=== PATIENT | male | born 1930 | race Caucasian/White ===

== ENCOUNTER → 2017-03-19 | Outpatient (CLI) | payer OTHER ==
[~2017-03-19] MED LIST: ACET-1256 PO; ACET325C PO; CEPH500C PO; CLX/20 PO; DABI1CAP PO; DFL150 PO; DLN/100 PO; FURO20TA PO; LEVO125T5 PO; LISI-729 PO; LSX40 PO; METO25TA3 PO; PRED10TA PO; SULF800T23 PO
--- NOTE | 2017-03-19 11:51 | DIAGNOSTIC IMAGING REPORT ---
LUMBAR SPINE CT CT DOSE: 635.67 mGy.cm HISTORY: Pain LUMBAR PAIN TECHNIQUE: Multiaxial CT images of the lumbar spine were performed and reformatted in the sagittal and coronal plane without the use of contrast. COMPARISON: 01/18/2011 FINDINGS: All findings including scoliosis and degenerative disc changes appear somewhat progressive compared to the prior exam. No evidence for compression deformity. Findings of moderate to moderately significant spinal stenosis on a multifactorial basis at L2-L3 and L3-L4. Potential developing mild multifactorial spinal stenosis L4-L5. Moderate narrowing of the neuroforamina bilaterally at virtually all levels. IMPRESSION: 1. Progressive degenerative disc change and scoliosis compared to the prior study of 01/18/2011. 2. Moderate multifactorial spinal stenosis at several levels again subtly progressive compared to the prior study. 3. No evidence for a compression deformity. 4. Moderate narrowing of the neuroforamina bilaterally at virtually all levels of the lumbar region. This is also somewhat progressive from the prior exam. Electronically signed by: Angel Park M.D. 03/19/2017 11:49 AM Dictated Date/Time: 03/19/2017 11:44 AM
== END | disposition home or self-care (01) ==
LOC: C.CTS 11:30
PROVIDERS: ATTEND Physical Medicine & Rehabilitation
DX: M54.16 Radiculopathy, lumbar region (principal)

== ENCOUNTER → 2017-05-25 | Outpatient (CLI) | payer OTHER ==
[~2017-05-25] MED LIST changes: -ACET325C PO; +LEVO125T4 PO; -LEVO125T5 PO; -LSX40 PO; -METO25TA3 PO
--- NOTE | 2017-05-25 16:26 | DIAGNOSTIC IMAGING REPORT ---
CHEST 2 VIEWS ROUTINE CLINICAL HISTORY: 86 years-old Male presenting with pulmonary fibrosis. TECHNIQUE: PA and lateral views of the chest were obtained. COMPARISON: 10/29/2016. FINDINGS: Left-sided pacer with lead to the right ventricular apex. Few metallic foreign bodies project over the right hemithorax, unchanged and possibly ballistic. Atherosclerosis of aortic arch. Persistent mild prominence of the cardiac silhouette. Diffuse reticular lung opacities with a mid to basilar predominance are essentially stable from prior. No convincing evidence of a new focal infiltrate. Persistent right lateral pleural thickening. No large effusion. No pneumothorax. Osseous structures and upper abdomen normal. IMPRESSION: 1. Chronic pulmonary fibrosis. No superimposed infiltrate to suggest pneumonia. Electronically signed by: Maurisio Grubbs M.D. 05/25/2017 4:24 PM Dictated Date/Time: 05/25/2017 4:22 PM
== END | disposition home or self-care (01) ==
LOC: C.RAD1850 16:12
PROVIDERS: ATTEND Internal Medicine
DX: J84.10 Pulmonary fibrosis, unspecified (principal)

== ENCOUNTER 2017-07-12 10:08 | Emergency (ER) | payer OTHER ==
[~2017-07-12] VITALS: Ht 165.1 cm; Wt 83.9 kg
[~2017-07-12 10:08] MED LIST changes: -CEPH500C PO; -SULF800T23 PO
[2017-07-12 10:13] VITALS: TEMP 36.7; Ht 165.1 cm; Wt 83.9 kg
[2017-07-12] MEDS ORDERED: XYLOCAINE 1%/SOD BICARB 20 ML VIAL INFIL ONE (11:24)
--- NOTE | 2017-07-12 11:29 | EMERGENCY ROOM VISIT NOTE ---
History Report prepared by Candi: Sherrie Chi Under the Supervision of: Dr. Sara Ramey M.D. First contact with patient: 10:36 Chief Complaint: LACERATION/CUT (SUT/DERMABOND) Stated Complaint: FELL AND CUT ARM Nursing Triage Summary: fell this am at 0915 lac to left lower arm x 2 with skin tear. also felllast week hurt right elbow swollen and red. 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 He fell outside and landed on rocks and cement. He has multiple lacerations to the left forearm. Family states that he has been falling often. He fell last week and injured his right elbow. Since that time he has been soaking the elbow in Epsom salt, but it has become swollen, warm, and sore. Movement exacerbates his pain. He rates his pain as a 6/10 in severity. He did not hit his head when he fell today, but family states that he hit his head with his previous fall. The patient states that his tetanus is up to date. He takes prednisone for pulmonary fibrosis. He is on Pradaxa for a-fib. 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 Pt has swelling to right elbow Review of Systems See HPI for pertinent positives & negatives. A total of 10 systems reviewed and were otherwise negative. 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 (17) Pulmonary fibrosis (18) PURE HYPERCHOLESTEROLEM (19) Renal cyst, right (20) Weakness Family History Heart disease Social History Smoking Status: Never Smoker Smokeless Tobacco Use: No Alcohol Use: none Drug Use: none Marital Status: Housing Status: lives with significant other Occupation Status: retired Current/Historical Medications Scheduled Cephalexin Monohydrate (Keflex), 500 MG PO TID Citalopram (Citalopram Hydrobromide), 20 MG PO QAM Dabigatran Etexilate Mesylate (Pradaxa), 75 MG PO BID Fluconazole (Fluconazole), 150 MG PO WK Furosemide (Lasix), 20 MG PO QAM Levothyroxine Sodium (Levothyroxine Sodium), 125 MCG PO QAM Lisinopril (Zestril), 5 MG PO QAM Phenytoin Sodium (Dilantin), 100 MG PO QID Prednisone Tab (Prednisone), 20 MG PO QAM Sulfa/Trimethoprim (Bactrim Ds 800MG/160MG), 1 TAB PO BID Scheduled PRN Acetaminophen (Tylenol), 1,000 MG PO Q6H PRN for Pain Allergies Coded Allergies: No Known Allergies (Unverified , 07/12/17) Physical Exam Vital Signs Date Time Temp Pulse Resp B/P (MAP) Pulse Ox O2 Delivery O2 Flow Rate FiO2 07/12/17 12:59 80 20 142/77 96 Room Air 07/12/17 12:43 71 144/82 93 Room Air 07/12/17 10:13 36.7 67 18 136/65 96 Room Air Physical Exam Vital signs reviewed. General: Well-appearing elderly male, in no significant distress. HEENT: No scleral icterus, PERRLA, neck supple. Atraumatic. Cardiovascular: Regular rate and rhythm, no extra sounds. Pulmonary: Coarse breath sounds bilaterally, normal work of breathing. Abdomen: Soft, nontender, nondistended, positive bowel sounds. Musculoskeletal: Right elbow bursa is erythematous, warm, and fluctuant. Small abrasion over the elbow that appears to be well-healing. Left forearm with a large 10 cm U-shaped skin tear/laceration. 2 cm superficial skin tear more distally Neurologic: Patient awake alert and oriented x 3, full strength in all 4 extremities. Cranial nerves 2 through 12 grossly intact. Skin: Warm, dry, no rash Medical Decision & Procedures ER Provider Diagnostic Interpretation: Radiology results as stated below per my review and radiologist interpretation: RIGHT ELBOW MIN 3 VIEWS ROUTINE CLINICAL HISTORY: Right elbow bursitis. Trauma. Pain. COMPARISON: None. DISCUSSION: No acute fractures are visualized. The fat pads are not displaced. There is a small olecranon spur and tiny radial head spur. There is posterior soft tissue swelling. IMPRESSION: Mild degenerative change. Posterior edema. No acute fractures. Electronically signed by: Paco Chatman M.D. 07/12/2017 11:27 AM Dictated Date/Time: 07/12/2017 11:26 AM HEAD WITHOUT CONTRAST (CT) CT DOSE: 537.48 mGy.cm HISTORY: Mental status change frequent falls, ICH, anticoagulation TECHNIQUE: Multiaxial CT images of the head were performed without the use of intravenous contrast. A dose lowering technique was utilized adhering to the principles of ALARA. Comparison: 06/22/2016 Findings: The paranasal sinuses and mastoid air cells are clear. Atrophy with chronic prominence of these subarachnoid space bilaterally. Mild age-related chronic small vessel change. No acute intracranial hemorrhage. No midline shift. Impression: Chronic change. No acute process. The above report was generated using voice recognition software. It may contain grammatical, syntax or spelling errors. Electronically signed by: Angel Park M.D. 07/12/2017 12:56 PM Dictated Date/Time: 07/12/2017 12:53 PM Laboratory Results Test 07/12/17 12:21 Synovial Fluid Source ELBOW Synovial Fluid Color ELIZA Synovial Fluid Appearance HAZY Synovial Fluid WBC 2626 /uL (0-200) Synovial Fluid RBC 95569 /uL Synovial Fluid Polynuclear WBCs % 91.1 % Synovial Fluid Mononuclear WBCs % 8.9 % Laboratory results per my review. Medications Administered Medications (Trade) Dose Ordered Sig/Chel Route Start Time Stop Time Status Last Admin Dose Admin Ceftriaxone Sodium (Rocephin Im) 1,000 mg NOW ONCE IM 07/12/17 12:30 07/12/17 12:31 DC 07/12/17 12:37 1,000 MG Trimethoprim/ Sulfamethoxazole (Septra Ds 800/ 160MG Tab) 1 tab NOW STAT PO 07/12/17 12:22 07/12/17 12:24 DC 07/12/17 12:36 1 TAB Procedure Laceration repair Location: left forearm Total length: 10 cm Complexity: simple Verbal consent was obtained after the risks and benefits were explained, including but not limited to bleeding, scarring, infection, pain, and bone/joint /nerve damage. At this time, the risks of the procedure are less than the risks of NOT performing the procedure. A time out was taken and the correct patient and site identified. The skin was prepped with betadine. The target area was anesthetized with 2 ml of 1% lidocaine without epinephrine. Copious irrigation was performed using NSS. The skin was re-prepped with betadine and a sterile field set. The wound was explored for foreign bodies and none found. Examination revealed no injury to deep structures such as tendons, bone, or significant blood vessels. Debridement was not performed. The wound edges were approximated using 5 deep absorbables 5-0 simple interrupted Vicryl sutures and Dermabond and steri strips applied. Hemostasis and excellent approximation was achieved. Antibacterial ointment and a sterile dressing applied. Detailed wound care instructions and signs and symptoms of infection reviewed with the patient. No complications and the patient tolerated the procedure well. Joint Aspiration Indication: Bursitis with overlying cellulitis Location: right elbow Verbal consent was obtained after the risks and benefits were explained, including but not limited to bleeding, scarring, infection, pain, and bone/joint /nerve damage. At this time, the risks of the procedure are less than the risks of NOT performing the procedure. A time out was taken and the correct patient and site identified. The skin was prepped with betadine and a sterile field set. The are was anesthetized with 1 ml of 1% lidocaine without epinephrine. The joint was aspirated with an 18-gauge needle. Approximately 4 ml of a straw- colored fluid was obtained. A sterile dressing applied. The area of cellulitis was circled. No complications and the patient tolerated the procedure well. ED Course 1036: Past medical records reviewed. The patient was evaluated in room A2. A complete history and physical examination was performed. 1124: Lidocaine HCl Inj 1141: At this time I performed a laceration repair and joint aspiration. Please see the procedure note for further details. 1222: Trimethoprim/Sulfamethoxazole 1 tab PO 1230: Rocephin 1000 mg IM 1315: I reassessed the patient at this time. He is feeling better and resting comfortably. I discussed the results and treatment plan with the patient and his family. I answered all pertaining questions that they had. They expressed understanding and verbalized agreement. The patient will be discharged home. Medical Decision Differential diagnosis: Intracranial injury, cervical spine injury, intrathoracic injury, intra- abdominal injury, musculoskeletal injury, wound infection, bursitis. This patient was evaluated and appeared to be in no significant distress. Evaluation of the right elbow appears to have a bursitis with overlying cellulitis. The elbow was and fluid was sent to the lab. The left forearm was approximated with a combination of sutures, Dermabond and Steri -Strips, please see my note above. Patient states his tetanus status is up-to- date. He was given IM ceftriaxone and a Bactrim tablet. He was discharged to 7 days of Keflex and Bactrim. Wound care instructions were given to the patient and his and daughter. Head CT was obtained due to the patient's frequent falls and anticoagulation. This study is negative. They'll follow-up with his physician this week and return to the ER for worsening of symptoms or any medical concerns. Medication Reconcilliation Current Medication List: was personally reviewed by me Blood Pressure Screening Patient's blood pressure: Elevated blood pressure Blood pressure disposition: Elevated BP felt to be situational Impression Primary Impression: Laceration of forearm, left Additional Impression: Other infective bursitis, right elbow Scribe Attestation The scribe's documentation has been prepared under my direction and personally reviewed by me in its entirety. I confirm that the note above accurately reflects all work, treatment, procedures, and medical decision making performed by me. Departure Information Dispostion Home / Self-Care Prescriptions Cephalexin Monohydrate (Keflex) 500 Mg Cap 500 MG PO TID for 6 Days, #18 CAP Prov: Sara Ramey M.D. 07/12/17 Sulfa/Trimethoprim (Bactrim Ds 800MG/160MG) Tab 1 TAB PO BID, #13 TAB Prov: Sara Ramey M.D. 07/12/17 Referrals Camden Dennis D.O. (PCP) Forms HOME CARE DOCUMENTATION FORM, IMPORTANT VISIT INFORMATION Patient Instructions [facility] Additional Instructions Diagnosis: Lacerations 2 to the left forearm, right olecranon bursitis. No water on the area for 8 hrs then no soaking until the glue falls off. Wash once daily with mild soap and warm water, do not scrub. Blot dry and apply a dry dressing. The glue will fall off on its own - do not pick at it. Once the glue falls off use antibiotic ointment on the area until fully healed. Ice and elevate for swelling and pain. Tylenol 650 mg every 6 hrs for pain (Maximum 3000 mg Tylenol in 24 hr period). Return for any signs of infection ( increasing redness, swelling, drainage, fever). Keep covered when in sun until fully healed then SPF 50 or higher for one year. Vitamin E oil if desired two weeks after fully healed for reduction of scar. Your tetanus status is up-to-date. Bactrim DS 1 tablet twice daily for 7 days. Take your pill starting tonight. Keflex 500 mg 3 times daily for 6 days, start tomorrow. Watch for signs of worsening infection. Follow-up with your physician this week for reevaluation. Return to the ER for worsening of symptoms or any medical concerns. Problem Qualifiers Primary Impression: Laceration of forearm, left Encounter type: initial encounter Qualified Codes: S51.812A - Laceration without foreign body of left forearm, initial encounter
[2017-07-12] MEDS ORDERED: SULFAMETHOXAZOLE/TRIMETHOPRIM DS 800/160MG TAB PO STA (12:22)
[2017-07-12] MEDS ORDERED: CEFTRIAXONE SOD 350MG/ML 1 GM VIAL IM ONE (12:30)
[2017-07-12] MEDS ORDERED: CEPH500C PO (12:33)
[2017-07-12] MEDS ORDERED: SULF800T23 PO (12:33)
--- NOTE | 2017-07-12 12:57 | DIAGNOSTIC IMAGING REPORT ---
HEAD WITHOUT CONTRAST (CT) CT DOSE: 537.48 mGy.cm HISTORY: Mental status change frequent falls, ICH, anticoagulation TECHNIQUE: Multiaxial CT images of the head were performed without the use of intravenous contrast. A dose lowering technique was utilized adhering to the principles of ALARA. Comparison: 06/22/2016 Findings: The paranasal sinuses and mastoid air cells are clear. Atrophy with chronic prominence of these subarachnoid space bilaterally. Mild age-related chronic small vessel change. No acute intracranial hemorrhage. No midline shift. Impression: Chronic change. No acute process. The above report was generated using voice recognition software. It may contain grammatical, syntax or spelling errors. Electronically signed by: Angel Park M.D. 07/12/2017 12:56 PM Dictated Date/Time: 07/12/2017 12:53 PM
[2017-07-12 12:59] VITALS: BP 142/77; PULSE 80; O2SAT 96
[2017-07-12 13:02] LABS: SYNOVIAL FLUID APPEARANCE HAZY; SYNOVIAL FLUID COLOR AMBER; SYNOVIAL FLUID MONONUC RELAT 8.9 %; SYNOVIAL FLUID POLYNUC RELAT 91.1 %
--- NOTE | 2017-07-16 10:54 | Pharmacy Progress Note ---
ED Pharmacist Culture FollowUp Date of Service: Jul 16, 2017. Patient presented after fall and injury to right elbow and was sent home with a prescription for Bactrim DS 1 tab BID and Keflex 500mg TID X 6 days, which should cover the MSSA growing from the patient's synovial culture.
== END 2017-07-12 13:21 | disposition home or self-care (01) ==
LOC: C.EDB 10:15 → C.EDA 13:21
DX: S51.812A Laceration without foreign body of left forearm, initial encounter (principal); W18.30XA Fall on same level, unspecified, initial encounter; M71.121 Other infective bursitis, right elbow; S50.311A Abrasion of right elbow, initial encounter; R29.6 Repeated falls; J84.10 Pulmonary fibrosis, unspecified; I48.91 Unspecified atrial fibrillation; M54.16 Radiculopathy, lumbar region; R00.1 Bradycardia, unspecified; I25.10 Atherosclerotic heart disease of native coronary artery without angina pectoris; N18.9 Chronic kidney disease, unspecified; I12.9 Hypertensive chronic kidney disease with stage 1 through stage 4 chronic kidney disease, or unspecified chronic kidney disease; J44.9 Chronic obstructive pulmonary disease, unspecified; F32.9 Major depressive disorder, single episode, unspecified; E03.9 Hypothyroidism, unspecified; E78.00 Pure hypercholesterolemia, unspecified; N28.1 Cyst of kidney, acquired; Z79.01 Long term (current) use of anticoagulants

== ENCOUNTER → 2017-09-16 | Outpatient (CLI) | payer OTHER ==
[~2017-09-16] MED LIST changes: -LEVO125T4 PO; +LEVO125T5 PO
--- NOTE | 2017-09-16 16:34 | DIAGNOSTIC IMAGING REPORT ---
CHEST 2 VIEWS ROUTINE HISTORY: COUGH, PULMONARY FIBROSIS COMPARISON: Chest 05/25/2017. FINDINGS: Left-sided single lead pacemaker. No pneumothorax. The heart is borderline enlarged. No pleural effusions. Diffuse interstitial thickening most pronounced at the lung bases. This remains unchanged. No new focal lung consolidation. A few metallic pellets seen within the right upper chest are again noted. IMPRESSION: Chronic interstitial thickening consistent with the patient's history of pulmonary fibrosis. No acute process within the chest. Electronically signed by: Judah Gary M.D. 09/16/2017 4:32 PM Dictated Date/Time: 09/16/2017 4:31 PM
== END | disposition home or self-care (01) ==
LOC: C.RAD1850 15:23
PROVIDERS: ATTEND Family Medicine Hospice and Palliative Medicine
DX: J84.10 Pulmonary fibrosis, unspecified (principal); R05 Cough

== ENCOUNTER 2017-09-29 09:59 | Emergency (ER) | payer OTHER ==
[~2017-09-29] VITALS: Ht 165.1 cm; Wt 85.0 kg
[2017-09-29 10:01] VITALS: TEMP 37.3; Ht 165.1 cm; Wt 85.0 kg
--- NOTE | 2017-09-29 11:14 | DIAGNOSTIC IMAGING REPORT ---
CHEST ONE VIEW PORTABLE HISTORY: Cough. Pulmonary fibrosis. COMPARISON: Chest 09/16/2017. FINDINGS: No pneumothorax. No pleural effusions. There are low lung volumes with diffuse interstitial thickening demonstrating a peripheral and basilar predominance. There is also basilar honeycombing consistent with fibrosis. This remains unchanged. No new focal lung consolidations. No evidence for pulmonary edema. The heart remains mildly enlarged. Left-sided single lead pacemaker. A few metallic BBs within the right shoulder. IMPRESSION: Chronic interstitial thickening consistent with the patient's history of fibrosis. This remains unchanged. No acute process within the chest. Electronically signed by: Judah Gary M.D. 09/29/2017 11:13 AM Dictated Date/Time: 09/29/2017 11:11 AM
--- NOTE | 2017-09-29 11:16 | DIAGNOSTIC IMAGING REPORT ---
PELVIS 1 OR 2 VIEW ROUTINE CLINICAL HISTORY: Fall. Pelvic pain. COMPARISON STUDY: None. FINDINGS: No fracture or dislocation within the pelvis or hips. Mild osteoarthritis within the bilateral hips. Surgical clips within the pelvis. The sacrum appears intact. IMPRESSION: No fracture or dislocation within the pelvis or hips. Electronically signed by: Judah Gary M.D. 09/29/2017 11:15 AM Dictated Date/Time: 09/29/2017 11:13 AM
[2017-09-29 11:25] LABS: BASO % 0.2 %; BASO ABS # 0.02 K/uL (0-0.2); EOS % 1.3 %; HEMATOCRIT 37.3 % (42-52); IG% 0.4 %; LYMPH % 24.7 %; MEAN CELL VOLUME 110.4 fL (80-100); MEAN CORPUSCULAR HEMOGLOBIN 36.7 pg (25-34); MEAN CORPUSCULAR HGB CONC 33.2 g/dl (32-36); MEAN PLATELET VOLUME 9.2 fL (7.4-10.4); MONO % 11.5 %; NEUT % 61.9 %; PLATELET COUNT 175 K/uL (130-400); RED BLOOD COUNT 3.38 M/uL (4.7-6.1); WHITE BLOOD COUNT 8.49 K/uL (4.8-10.8)
--- NOTE | 2017-09-29 11:26 | DIAGNOSTIC IMAGING REPORT ---
CT SCAN OF THE BRAIN WITHOUT IV CONTRAST CLINICAL HISTORY: Fall several days ago. Headache. COMPARISON STUDY: CT of the brain dated 07/12/2017. TECHNIQUE: Unenhanced axial CT scan of the brain is performed from the vertex to the skull base. FINDINGS: Brain parenchyma: There is an acute appearing subdural hematoma identified along the left temporal convexity. This is best seen on axial image #10 and measures up to 14 mm thickness. This effaces the subjacent cortical sulci. No midline shift is seen. Trace subdural blood is also identified along the tentorium cerebelli. There is trace subarachnoid hemorrhage identified along the right posterior parietal cortical sulci, best seen on axial image #18. There are age-related involutional changes noting mild patchy subcortical and periventricular microangiopathic change. There is no evidence of acute territorial ischemia by CT criteria. Law-white matter is preserved. Ventricles, sulci, cisterns: Prominent secondary to involutional change. Intracranial vasculature: There is atherosclerotic calcification of the cavernous carotid and vertebral arteries. Calvarium: The skeletal structures are osteopenic. No depressed calvarial fracture is seen. A small sebaceous cyst is present within the suboccipital soft tissues. Sinuses and mastoids: There is evidence of previous paranasal sinus surgery. Mild mucosal thickening is seen within the maxillary antra. The remaining visualized paranasal sinuses are clear. There is a left mastoid effusion. The right mastoid air cells are well pneumatized. Cerumen is seen within the left external auditory canal. Orbits: The bony orbits are grossly intact. Bilateral ocular lens implants are noted. IMPRESSION: 1. There is an acute subdural hematoma identified along the left convexity. This causes mild mass effect with effacement of the subjacent cortical sulci. No midline shift is seen. 2. Trace subdural blood is also seen along the tentorium cerebelli. 3. There is a small volume of subarachnoid hemorrhage identified along the right posterior parietal cortical sulci. 4. There is no evidence of acute territorial ischemia by CT criteria. 5. No depressed calvarial fracture is seen. Electronically signed by: Rolando Causey M.D. 09/29/2017 11:25 AM Dictated Date/Time: 09/29/2017 11:20 AM
[2017-09-29 11:45] LABS: BLOOD UREA NITROGEN 14 mg/dl (7-18); BUN/CREATININE RATIO 11.6 (10-20); CALCIUM 8.5 mg/dl (8.5-10.1); CARBON DIOXIDE 31 mmol/L (21-32); CHLORIDE 103 mmol/L (98-107); CREATININE 1.23 mg/dl (0.60-1.40); GLUCOSE 141 mg/dl (70-99); SODIUM 139 mmol/L (136-145)
[2017-09-29 11:46] LABS: COMPLETE YES; STOMATOCYTE 1+
--- NOTE | 2017-09-29 11:47 | DIAGNOSTIC IMAGING REPORT ---
LUMBAR SPINE CT CT DOSE: HISTORY: Low back pain. Fall. TECHNIQUE: Multiaxial CT images of the lumbar spine were performed and reformatted in the sagittal and coronal plane without the use of contrast. A dose lowering technique was utilized adhering to the principles of ALARA. COMPARISON: Lumbar spine CT 03/19/2017. FINDINGS: No acute fractures or subluxation within the lumbar spine. Focal indentation along the inferior endplate of L4 remains unchanged. This could be due to a Schmorl's node or old compression deformity. Moderate disc space narrowing at L2-L3 and mild disc space narrowing at L5-S1. Paraspinal soft tissues are unremarkable. The visualized sacrum is intact. Mild levoscoliosis. Moderate central canal narrowing at L3-L4 and mild central canal narrowing at L2-L3 and L4-L5, unchanged. IMPRESSION: 1. No significant change compared to the prior study. 2. No acute fractures or subluxation within the lumbar spine. 3. Degenerative changes as described above. 4. Focal central depression within the inferior endplate of L4 remains unchanged and may be due to a Schmorl's node or old compression deformity. Electronically signed by: Judah Gary M.D. 09/29/2017 11:46 AM Dictated Date/Time: 09/29/2017 11:35 AM
--- NOTE | 2017-09-29 11:49 | DIAGNOSTIC IMAGING REPORT ---
CT SCAN OF THE CERVICAL SPINE CLINICAL HISTORY: Fall several days ago. COMPARISON STUDY: CT scan of cervical spine dated 06/22/2016. TECHNIQUE: CT scan of the cervical spine is performed from the skull base to the upper thoracic spine. Images are reviewed in the axial, sagittal, and coronal planes. IV contrast was not administered for this examination. A dose lowering technique was utilized adhering to the principles of ALARA. CT DOSE: 2056.19 mGy.cm FINDINGS: Skeletal structures: The skeletal structures are osteopenic. There is no evidence of fracture or subluxation involving the cervical spine. Vertebral body height and alignment are maintained. The odontoid process and lateral masses are intact. The atlantoaxial articulation is preserved noting advanced productive degenerative change. Small anterior osteophytes are seen throughout. The spinous processes appear intact. There is moderate to advanced multilevel cervical spondylosis. Uncovertebral and facet arthropathy contribute to neural foraminal stenosis at most levels. There is partial bony fusion of the posterior elements at C4-C5. Intervertebral discs: There is advanced disc space narrowing seen at C2-C3 and C6-C7. Mild to moderate disc space narrowing is seen at the remaining cervical levels. Central canal: Posterior disc osteophyte complexes at C3-C4, C4-C5, and C6-C7 may contribute to multilevel acquired compromise of the central canal. Soft tissues: The prevertebral and paraspinous soft tissues are within normal limits. There is atherosclerotic calcification of the carotid bulbs. A subcentimeter low-attenuation nodule is suggested in the right thyroid lobe. A sebaceous cyst is present in the suboccipital soft tissues. Calvarium: The visualized calvarium at the skull base appears intact. Brain parenchyma: Partially visualized brain parenchyma the skull base is within normal limits. Sinuses and mastoids: The visualized paranasal sinuses are clear. There are bilateral mastoid effusions, left larger than right. Lung apices: Clear as visualized. IMPRESSION: 1. There is no evidence of fracture or subluxation involving the cervical spine. 2. Osteopenia and spondylotic change as above. Electronically signed by: Rolando Causey M.D. 09/29/2017 11:48 AM Dictated Date/Time: 09/29/2017 11:43 AM
[2017-09-29 12:13] LABS: PARTIAL THROMBOPLASTIN RATIO 1.2; PROTHROMBIN TIME (PATIENT) 11.1 SECONDS (9.0-12.0)
[2017-09-29] MEDS ORDERED: IDARUCIZUMAB IV ONE (12:30)
[2017-09-29] MEDS ORDERED: SODIUM CHLOR 0.9% 10ML FLUSH 20 ML in SYRINGE 0 ML IV ONE (12:30)
[2017-09-29 12:51] VITALS: BP 165/90; PULSE 77; O2SAT 97
--- NOTE | 2017-09-29 17:21 | EMERGENCY ROOM VISIT NOTE ---
History Report prepared by Candi: Sherrie Chi Under the Supervision of: Dr. Abimael Ashley M.D. First contact with patient: 10:16 Chief Complaint: RESPIRATORY PROBLEMS Stated Complaint: HEADACHE, TROUBLE BREATHING Nursing Triage Summary: pt reports he fell on wednesday has back pain and head pain. no loc when he coughs hurts around neck . has alot of coughing nonproductive. needs oxygen level checked per daughter History of Present Illness The patient is a 86 year old male who presents to the Emergency Room with complaints of constant lower back pain secondary to a fall occurring 2 days ago. The patient was bending over to refill the bird feeder and stood up quickly. This caused him to fall backwards and land on his buttocks and lower back. He has been having pain in his buttocks and lower back since this episode. The patient hit his head and notes a "lump" on the back of his head. He did not lose consciousness. He is complaining of head pain and neck pain secondary to his fall. The patient denies fevers, upper back pain, chest pain, nausea, vomiting, abdominal pain, hip pain, and any pain or injury to his extremities. He is on chronic NC/O2 for pulmonary fibrosis. The patient states that he is not more short of breath than usual. He denies any new or worsening respiratory symptoms. The patient takes Pradaxa for A-fib. Source of History: patient, spouse/significant other Onset: 2 days ago Position: back (lower) Timing: constant Modifying Factors (Worsening): other (recent fall ) Associated Symptoms: + headache, + neck pain, No LOC, No fevers, No chest pain, No SOB, No nausea, No vomiting, No abdominal pain Note: Pt notes pain in buttocks. Pt denies hip pain and pain or injury to extremities. Review of Systems See HPI for pertinent positives & negatives. A total of 10 systems reviewed and were otherwise negative. 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 (17) Pulmonary fibrosis (18) PURE HYPERCHOLESTEROLEM (19) Renal cyst, right (20) Weakness Family History Heart disease Social History Smoking Status: Former Smoker Alcohol Use: none Drug Use: none Marital Status: Housing Status: lives with significant other Occupation Status: retired Current/Historical Medications Scheduled Citalopram (Citalopram Hydrobromide), 20 MG PO QAM Dabigatran Etexilate Mesylate (Pradaxa), 75 MG PO BID Fluconazole (Fluconazole), 150 MG PO WK Furosemide (Lasix), 20 MG PO QAM Levothyroxine Sodium (Levothyroxine Sodium), 125 MCG PO QAM Phenytoin Sodium (Dilantin), 100 MG PO TID Prednisone Tab (Prednisone), 20 MG PO QAM Scheduled PRN Acetaminophen (Tylenol), 1,000 MG PO Q6H PRN for Pain Allergies Coded Allergies: No Known Allergies (Unverified , 07/12/17) Physical Exam Vital Signs Date Time Temp Pulse Resp B/P (MAP) Pulse Ox O2 Delivery O2 Flow Rate FiO2 09/29/17 12:51 77 18 165/90 97 09/29/17 12:24 74 18 164/75 99 Nasal Cannula 3.0 09/29/17 11:21 74 16 144/84 96 Nasal Cannula 3.0 09/29/17 10:28 79 09/29/17 10:01 37.3 78 26 161/74 96 Room Air Physical Exam Constitutional: Vital signs reviewed. Eyes: Pupils are equal round reactive to light. Conjunctiva are noninjected. ENT: Pharynx is clear without erythema or exudate. Mucous membranes are moist. Neck supple without meningeal signs. Respiratory: Rhonchi bilaterally. Breath sounds are equal bilaterally. Cardiovascular: Regular rate and rhythm. No rubs or gallops. GI: Soft, nondistended and nontender. Bowel sounds are present. Musculoskeletal: No peripheral edema. No midline tenderness to cervical, thoracic, and lumbosacral spine. No hip tenderness, no pelvic instability. Integumentary: No cyanosis. Neurological: The patient is awake and alert. Cranial nerves II-XII are intact. Motor is 5 out of 5 all extremities. Sensation is intact to light touch all extremities. Normal speech. No pronator drift. Psychiatric: Normal affect. Medical Decision & Procedures ER Provider Diagnostic Interpretation: Radiology results as stated below per my review and the radiologist's interpretation: LUMBAR SPINE CT CT DOSE: HISTORY: Low back pain. Fall. TECHNIQUE: Multiaxial CT images of the lumbar spine were performed and reformatted in the sagittal and coronal plane without the use of contrast. A dose lowering technique was utilized adhering to the principles of ALARA. COMPARISON: Lumbar spine CT 03/19/2017. FINDINGS: No acute fractures or subluxation within the lumbar spine. Focal indentation along the inferior endplate of L4 remains unchanged. This could be due to a Schmorl's node or old compression deformity. Moderate disc space narrowing at L2-L3 and mild disc space narrowing at L5-S1. Paraspinal soft tissues are unremarkable. The visualized sacrum is intact. Mild levoscoliosis. Moderate central canal narrowing at L3-L4 and mild central canal narrowing at L2-L3 and L4-L5, unchanged. IMPRESSION: 1. No significant change compared to the prior study. 2. No acute fractures or subluxation within the lumbar spine. 3. Degenerative changes as described above. 4. Focal central depression within the inferior endplate of L4 remains unchanged and may be due to a Schmorl's node or old compression deformity. Electronically signed by: Judah Gary M.D. 09/29/2017 11:46 AM Dictated Date/Time: 09/29/2017 11:[address] SCAN OF THE BRAIN WITHOUT IV CONTRAST CLINICAL HISTORY: Fall several days ago. Headache. COMPARISON STUDY: CT of the brain dated 07/12/2017. TECHNIQUE: Unenhanced axial CT scan of the brain is performed from the vertex to the skull base. FINDINGS: Brain parenchyma: There is an acute appearing subdural hematoma identified along the left temporal convexity. This is best seen on axial image #10 and measures up to 14 mm thickness. This effaces the subjacent cortical sulci. No midline shift is seen. Trace subdural blood is also identified along the tentorium cerebelli. There is trace subarachnoid hemorrhage identified along the right posterior parietal cortical sulci, best seen on axial image #18. There are age-related involutional changes noting mild patchy subcortical and periventricular microangiopathic change. There is no evidence of acute territorial ischemia by CT criteria. Law-white matter is preserved. Ventricles, sulci, cisterns: Prominent secondary to involutional change. Intracranial vasculature: There is atherosclerotic calcification of the cavernous carotid and vertebral arteries. Calvarium: The skeletal structures are osteopenic. No depressed calvarial fracture is seen. A small sebaceous cyst is present within the suboccipital soft tissues. Sinuses and mastoids: There is evidence of previous paranasal sinus surgery. Mild mucosal thickening is seen within the maxillary antra. The remaining visualized paranasal sinuses are clear. There is a left mastoid effusion. The right mastoid air cells are well pneumatized. Cerumen is seen within the left external auditory canal. Orbits: The bony orbits are grossly intact. Bilateral ocular lens implants are noted. IMPRESSION: 1. There is an acute subdural hematoma identified along the left convexity. This causes mild mass effect with effacement of the subjacent cortical sulci. No midline shift is seen. 2. Trace subdural blood is also seen along the tentorium cerebelli. 3. There is a small volume of subarachnoid hemorrhage identified along the right posterior parietal cortical sulci. 4. There is no evidence of acute territorial ischemia by CT criteria. 5. No depressed calvarial fracture is seen. Electronically signed by: Rolando Causey M.D. 09/29/2017 11:25 AM Dictated Date/Time: 09/29/2017 11:[address] SCAN OF THE CERVICAL SPINE CLINICAL HISTORY: Fall several days ago. COMPARISON STUDY: CT scan of cervical spine dated 06/22/2016. TECHNIQUE: CT scan of the cervical spine is performed from the skull base to the upper thoracic spine. Images are reviewed in the axial, sagittal, and coronal planes. IV contrast was not administered for this examination. A dose lowering technique was utilized adhering to the principles of ALARA. CT DOSE: 2056.19 mGy.cm FINDINGS: Skeletal structures: The skeletal structures are osteopenic. There is no evidence of fracture or subluxation involving the cervical spine. Vertebral body height and alignment are maintained. The odontoid process and lateral masses are intact. The atlantoaxial articulation is preserved noting advanced productive degenerative change. Small anterior osteophytes are seen throughout. The spinous processes appear intact. There is moderate to advanced multilevel cervical spondylosis. Uncovertebral and facet arthropathy contribute to neural foraminal stenosis at most levels. There is partial bony fusion of the posterior elements at C4-C5. Intervertebral discs: There is advanced disc space narrowing seen at C2-C3 and C6-C7. Mild to moderate disc space narrowing is seen at the remaining cervical levels. Central canal: Posterior disc osteophyte complexes at C3-C4, C4-C5, and C6-C7 may contribute to multilevel acquired compromise of the central canal. Soft tissues: The prevertebral and paraspinous soft tissues are within normal limits. There is atherosclerotic calcification of the carotid bulbs. A subcentimeter low-attenuation nodule is suggested in the right thyroid lobe. A sebaceous cyst is present in the suboccipital soft tissues. Calvarium: The visualized calvarium at the skull base appears intact. Brain parenchyma: Partially visualized brain parenchyma the skull base is within normal limits. Sinuses and mastoids: The visualized paranasal sinuses are clear. There are bilateral mastoid effusions, left larger than right. Lung apices: Clear as visualized. IMPRESSION: 1. There is no evidence of fracture or subluxation involving the cervical spine. 2. Osteopenia and spondylotic change as above. Electronically signed by: Rolando Causey M.D. 09/29/2017 11:48 AM Dictated Date/Time: 09/29/2017 11:43 AM PELVIS 1 OR 2 VIEW ROUTINE CLINICAL HISTORY: Fall. Pelvic pain. COMPARISON STUDY: None. FINDINGS: No fracture or dislocation within the pelvis or hips. Mild osteoarthritis within the bilateral hips. Surgical clips within the pelvis. The sacrum appears intact. IMPRESSION: No fracture or dislocation within the pelvis or hips. Electronically signed by: Judah Gary M.D. 09/29/2017 11:15 AM Dictated Date/Time: 09/29/2017 11:13 AM CHEST ONE VIEW PORTABLE HISTORY: Cough. Pulmonary fibrosis. COMPARISON: Chest 09/16/2017. FINDINGS: No pneumothorax. No pleural effusions. There are low lung volumes with diffuse interstitial thickening demonstrating a peripheral and basilar predominance. There is also basilar honeycombing consistent with fibrosis. This remains unchanged. No new focal lung consolidations. No evidence for pulmonary edema. The heart remains mildly enlarged. Left-sided single lead pacemaker. A few metallic BBs within the right shoulder. IMPRESSION: Chronic interstitial thickening consistent with the patient's history of fibrosis. This remains unchanged. No acute process within the chest. Electronically signed by: Judah Gary M.D. 09/29/2017 11:13 AM Dictated Date/Time: 09/29/2017 11:11 AM Laboratory Results 09/29/17 10:45 Red Blood Count 3.38, Mean Corpuscular Volume 110.4, Mean Corpuscular Hemoglobin 36.7, Mean Corpuscular Hemoglobin Concent 33.2, Mean Platelet Volume 9.2, Neutrophils (%) (Auto) 61.9, Lymphocytes (%) (Auto) 24.7, Monocytes (%) ( Auto) 11.5, Eosinophils (%) (Auto) 1.3, Basophils (%) (Auto) 0.2, Neutrophils # (Auto) 5.25, Lymphocytes # (Auto) 2.10, Monocytes # (Auto) 0.98, Eosinophils # ( Auto) 0.11, Basophils # (Auto) 0.02 09/29/17 10:45 09/29/17 12:03 Test 09/29/17 10:45 White Blood Count 8.49 K/uL (4.8-10.8) Red Blood Count 3.38 M/uL (4.7-6.1) Hemoglobin 12.4 g/dL (14.0-18.0) Hematocrit 37.3 % (42-52) Mean Corpuscular Volume 110.4 fL (80-100) Mean Corpuscular Hemoglobin 36.7 pg (25-34) Mean Corpuscular Hemoglobin Concent 33.2 g/dl (32-36) Platelet Count 175 K/uL (130-400) Mean Platelet Volume 9.2 fL (7.4-10.4) Neutrophils (%) (Auto) 61.9 % Lymphocytes (%) (Auto) 24.7 % Monocytes (%) (Auto) 11.5 % Eosinophils (%) (Auto) 1.3 % Basophils (%) (Auto) 0.2 % Neutrophils # (Auto) 5.25 K/uL (1.4-6.5) Lymphocytes # (Auto) 2.10 K/uL (1.2-3.4) Monocytes # (Auto) 0.98 K/uL (0.11-0.59) Eosinophils # (Auto) 0.11 K/uL (0-0.5) Basophils # (Auto) 0.02 K/uL (0-0.2) RDW Standard Deviation 55.3 fL (36.4-46.3) RDW Coefficient of Variation 13.8 % (11.5-14.5) Immature Granulocyte % (Auto) 0.4 % Immature Granulocyte # (Auto) 0.03 K/uL (0.00-0.02) Macrocytosis PRESENT Stomatocytes 1+ Prothrombin Time 11.1 SECONDS (9.0-12.0) Prothromb Time International Ratio 1.0 (0.9-1.1) Activated Partial Thromboplast Time 32.0 SECONDS (21.0-31.0) Partial Thromboplastin Ratio 1.2 Anion Gap 5.0 mmol/L (3-11) Est Creatinine Clear Calc Drug Dose 43.2 ml/min Estimated GFR () 61.2 Estimated GFR (Non- 52.8 BUN/Creatinine Ratio 11.6 (10-20) Calcium Level 8.5 mg/dl (8.5-10.1) Troponin I 0.024 ng/ml (0-0.045) Laboratory results as reviewed by me. Medications Administered Medications (Trade) Dose Ordered Sig/Chel Route Start Time Stop Time Status Last Admin Dose Admin Idarucizumab 5 gm/ Syringe 100 ml @ 10 mls/min NOW ONCE IV 09/29/17 12:30 09/29/17 12:39 DC 09/29/17 12:26 10 MLS/MIN Sodium Chloride 20 ml/Syringe 20 ml @ 0 mls/min NOW ONCE IV 09/29/17 12:30 09/29/17 12:31 DC 09/29/17 12:26 10 MLS/MIN ECG Indication: back/shoulder pain Rate (beats per minute): 82 Rhythm: normal sinus Findings: 1st degree AV block, T-wave inversion (V4-V6) ED Course 1016: The patient was evaluated in room B4B. A complete history and physical exam was performed. 1157: I updated the patient and his family on the results. I discussed the treatment plan with them and they are requesting transfer to [facility]. The patient's blood pressure is currently 144/84. 1201: I spoke with Dr. Raman of [facility] as well as Dr. Elder in the ED regarding the patient's case. They accepted the patient for transfer to their facility. 1211: I discussed the patient's treatment plan with the ED pharmacist who conferred with Dr. Lynn the anticoagulation specialist. They recommend Idarucizumab and the patient is in agreement with the treatment plan. 1230: Sodium Chloride 20 ml IV, Idarucizumab 5 gm IV 1237: I updated the patient and his family. I answered all pertaining questions that they had. They expressed understanding and verbalized agreement. The patient is receiving his Idarucizumab now. [facility] has arrived in the department to transport the patient. Medical Decision This is an 86-year-old male who presents with injuries after a fall. Differential diagnosis includes concussion, intracranial hemorrhage, skull fracture, contusion, cervical fracture. I did perform a limited focused review of portions of the patient's old chart on the electronic medical record. The patient fell in July and had a laceration that was repaired here. I did evaluate the patient as noted above. I did obtain history from the patient as well as his family. He is presenting with a headache after a fall 2 days ago. IV access was established. The patient was placed on a continuous sidehand. I did order and personally review the patient's 12-lead EKG and chest/pelvis x-ray as described above. I did order and review the patient' s blood work as noted in the electronic medical record. I did order a CT of the head, cervical spine and lumbar spine. I did review the images myself as well as the radiology report as described above. He does have a subdural hematoma as well as a subarachnoid hemorrhage with mass effect. I did discuss the test results with the patient and his family. They did prefer [facility] for transfer. I did speak to the emergency physician as well as the neurosurgeon at [facility] who accepted the patient for transfer. I did treat the patient with IV Praxabind because the patient was on Pradaxa. The patient was transferred via helicopter to [facility]. Head Trauma GCS Score: 15 Medication Reconcilliation Current Medication List: was personally reviewed by me Blood Pressure Screening Patient's blood pressure: Elevated blood pressure Blood pressure disposition: Referred to PCP Consults Time Called: 1158 Consulting Physician: Dr. Raman & Dr. Elder Returned Call: [address] Raman of [facility] as well as Dr. Elder in the ED regarding the patient's case. They accepted the patient for transfer to their facility. Impression Primary Impression: Subdural hematoma Additional Impressions: Subarachnoid hemorrhage Fall Anticoagulated Critical Care I have personally spent 35 minutes of critical care time in the direct management of this patient. This includes bedside care, interpretation of diagnostic studies, and testing, discussion with consultants, patient, and family members, and other required patient management activities. This 35 minutes is in excess of all separately billable procedures. Scribe Attestation The scribe's documentation has been prepared under my direct and personally reviewed by me in its entirety. I confirm that the note above accurately reflects all work, treatment, procedures, and medical decision making performed by me. Departure Information Dispostion Transfer Acute Care Facility Referrals Camden Dennis D.O. (PCP) Patient Instructions My [facility] Problem Qualifiers Additional Impressions: Fall Encounter type: initial encounter Qualified Codes: W19.XXXA - Unspecified fall, initial encounter
== END 2017-09-29 12:51 | disposition short-term general hospital (02) ==
LOC: C.EDB 10:01
DX: S06.5X9A Traumatic subdural hemorrhage with loss of consciousness of unspecified duration, initial encounter (principal); S06.6X9A Traumatic subarachnoid hemorrhage with loss of consciousness of unspecified duration, initial encounter; W19.XXXA Unspecified fall, initial encounter; Z79.01 Long term (current) use of anticoagulants; J84.10 Pulmonary fibrosis, unspecified; Z99.81 Dependence on supplemental oxygen; I48.91 Unspecified atrial fibrillation; I25.10 Atherosclerotic heart disease of native coronary artery without angina pectoris; I12.9 Hypertensive chronic kidney disease with stage 1 through stage 4 chronic kidney disease, or unspecified chronic kidney disease; N18.9 Chronic kidney disease, unspecified; J44.9 Chronic obstructive pulmonary disease, unspecified; F32.9 Major depressive disorder, single episode, unspecified; E03.9 Hypothyroidism, unspecified; Z79.51 Long term (current) use of inhaled steroids; Z87.891 Personal history of nicotine dependence; Z82.49 Family history of ischemic heart disease and other diseases of the circulatory system

== ENCOUNTER 2017-10-03 12:43 | Inpatient (IN) | payer OTHER ==
[~2017-10-03] VITALS: Ht 167.6 cm; Wt 77.5 kg
[~2017-10-03 12:43] MED LIST changes: -LISI-729 PO
[2017-10-03] MEDS ORDERED: SODIUM CHLORIDE 0.9% 1000ML 1,000 ML IV STA ×2 (13:01→13:11)
[2017-10-03] MEDS ORDERED: ACETAMINOPHEN 325 MG SUPP PR STA (13:11)
[2017-10-03] MEDS ORDERED: LSX40 PO (13:29)
[2017-10-03] MEDS ORDERED: ACET325C PO (13:29)
[2017-10-03] MEDS ORDERED: METO25TA3 PO (13:29)
[2017-10-03] MEDS ORDERED: LISI-729 PO (13:29)
[2017-10-03 13:55] LABS: BASO % 0.2 %; BASO ABS # 0.03 K/uL (0-0.2); COMPLETE YES; HEMATOCRIT 40.7 % (42-52); IG% 0.4 %; LYMPH % 24.5 %; LYMPH ABS # 4.39 K/uL (1.2-3.4); MEAN CORPUSCULAR HEMOGLOBIN 36.3 pg (25-34); MEAN CORPUSCULAR HGB CONC 33.7 g/dl (32-36); MEAN PLATELET VOLUME 9.8 fL (7.4-10.4); NEUT % 60.9 %; PLATELET COUNT 196 K/uL (130-400); RED BLOOD COUNT 3.77 M/uL (4.7-6.1); WHITE BLOOD COUNT 17.91 K/uL (4.8-10.8)
[2017-10-03 14:11] LABS: INR 1.1 (0.9-1.1); PARTIAL THROMBOPLASTIN RATIO 1.3
[2017-10-03 14:13] LABS: BUN/CREATININE RATIO 26.1 (10-20); CREATININE 1.12 mg/dl (0.60-1.40); MAGNESIUM 2.1 mg/dl (1.8-2.4)
[2017-10-03] MEDS ORDERED: DILTIAZEM BOLUS / DRIP IV STA (14:21)
[2017-10-03] MEDS ORDERED: DILTIAZEM HCL 5 MG/ML 5 ML VIAL IV STA (14:21)
[2017-10-03] MEDS ORDERED: POTASSIUM CHLORIDE 10 MEQ / 100ML WTR IV STA (14:22)
[2017-10-03 14:26] LABS: CKMB/CK RATIO 0.6 (0-3.0); THYROID STIMULATING HORMONE 1.91 uIu/ml (0.300-4.500)
[2017-10-03] MEDS ORDERED: DILTIAZEM HCL INJ 125 MG in DEXTROSE 5% 100ML IV PRN (14:30)
[2017-10-03] MEDS ORDERED: POTASSIUM CHLR 10MEQ / WTR IV SCH (14:45)
--- NOTE | 2017-10-03 15:01 | DIAGNOSTIC IMAGING REPORT ---
SINGLE VIEW CHEST CLINICAL HISTORY: Generalized weakness. FINDINGS: An AP, portable, upright chest radiograph is compared to study dated 09/29/2017. Correlation is made with chest CT dated 01/03/2015. The examination is degraded by portable technique and patient rotation. A single lead cardiac pacemaker is unchanged in position. The heart is enlarged and there is atherosclerotic calcification of the thoracic aorta. There is pulmonary vascular congestion. Bilateral airspace opacities are noted and likely represent interstitial edema. There are low lung volumes with changes of chronic residual lung disease which are similar to previous. There are small pleural effusions. No pneumothorax is seen. The skeletal structures are osteopenic. The bony thorax is grossly intact. IMPRESSION: 1. Cardiomegaly and cardiac pacemaker. There is evidence of congestive failure. 2. Bilateral airspace opacities are identified and likely represent interstitial edema. Correlate clinically for evidence of superimposed pneumonia. 3. Small pleural effusions. 4. Changes of underlying interstitial lung disease are similar to previous. Electronically signed by: Rolando Causey M.D. 10/03/2017 2:59 PM Dictated Date/Time: 10/03/2017 2:57 PM
[2017-10-03 15:09] LABS: URINE APPEARANCE CLEAR (CLEAR); URINE COLOR DK YELLOW; URINE EPITHELIAL CELL AUTO >30 /lpf (0-5); URINE NITRITE NEG (NEG); URINE SPECIFIC GRAVITY 1.028 (1.000-1.030); UROBILINOGEN NEG (NEG)
[2017-10-03 15:11] LABS: MANUAL MICROSCOPIC REQUIRED? NO; REVIEW REQ? YES; URINE BILIRUBIN 2+ (NEG)
[2017-10-03 15:27] LABS: URINE MUCUS PRESENT (NONE PRSENT)
[2017-10-03] MEDS ORDERED: LORAZEPAM 2 MG/ML 1 ML VIAL IV STA (15:28)
[2017-10-03] MEDS ORDERED: CEFEPIME IV 1,000 MG in DEXTROSE 5% 100ML 100 ML IV STA (15:56)
[2017-10-03] MEDS ORDERED: HALOPERIDOL LACTATE 5 MG/ML 1 ML VIAL IV STA (15:56)
[2017-10-03] MEDS ORDERED: VANCOMYCIN INJ 1,700 MG in SODIUM CHLORIDE 0.9% 500ML 500 ML IV STA (15:56)
[2017-10-03] MEDS ORDERED: METOPROLOL TARTRATE 1 MG/ML VIAL IV STA (15:59)
[2017-10-03] MEDS ORDERED: CEFEPIME IV 1,000 MG in SYRINGE 0 ML IV SCH (16:30)
--- NOTE | 2017-10-03 17:48 | DIAGNOSTIC IMAGING REPORT ---
CT SCAN OF THE BRAIN WITHOUT IV CONTRAST CLINICAL HISTORY: Change in mental status. Recent intracranial hemorrhage. COMPARISON STUDY: CT scans of the brain dated 09/29/2017 and 07/12/2017. TECHNIQUE: Unenhanced axial CT scan of the brain is performed from the vertex to the skull base. FINDINGS: Brain parenchyma: There is a mixed attenuation subdural hematoma again seen along the left convexity. The volume of hyperdense/acute appearing blood appears diminished from 1129 and 17. This measures a maximum of 12 mm in thickness. This effaces the subjacent cortical sulci. No midline shift is seen. Subdural blood along the tentorium cerebelli has largely resolved. Chronic appearing low-attenuation subdural fluid is again seen along the midline falx and the right convexity. 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 There is only trace residual subarachnoid blood identified in the right parietal sulci on image #18. There are age-related involutional changes noting mild patchy subcortical and periventricular microangiopathic change. There is no evidence of acute territorial ischemia by CT criteria. Law-white matter is preserved. Ventricles, sulci, cisterns: Prominent secondary to involutional change. Trace blood in the right lateral ventricle is new from previous as seen on image #14. Intracranial vasculature: There is atherosclerotic calcification of the cavernous carotid and vertebral arteries. Calvarium: The skeletal structures are osteopenic. No depressed calvarial fracture is seen. A small sebaceous cyst is present within the suboccipital soft tissues. Sinuses and mastoids: There is evidence of previous paranasal sinus surgery. Mild mucosal thickening is seen within the maxillary antra. The remaining visualized paranasal sinuses are clear. There is a left mastoid effusion. The right mastoid air cells are well pneumatized. Cerumen is seen within the left external auditory canal. Orbits: The bony orbits are grossly intact. Bilateral ocular lens implants are noted. IMPRESSION: 1. No enlarging subdural hematoma is identified. There has been a modest decrease in the size of the mixed attenuation subdural hematoma along the left convexity as compared to 09/29/2017. The volume of hyperdense/acute appearing blood has decreased. This causes mild mass effect with effacement of the subjacent cortical sulci. No midline shift is seen. 2. Trace intraventricular blood is new from previous. 3. Subdural blood seen along the tentorium cerebelli has almost completely resolved. 4. There is only trace residual subarachnoid hemorrhage identified along the right posterior parietal cortical sulci. This is almost completely resolved. 5. 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 6. There is no evidence of acute territorial ischemia by CT criteria. Electronically signed by: Rolando Causey M.D. 10/03/2017 5:47 PM Dictated Date/Time: 10/03/2017 5:38 PM
[2017-10-03] MEDS ORDERED: OPTIRAY 320 IV PRN (18:15)
--- NOTE | 2017-10-03 19:18 | DIAGNOSTIC IMAGING REPORT ---
CT ANGIOGRAM OF THE CHEST CLINICAL HISTORY: Hypoxia. Change in mental status. COMPARISON STUDY: Chest CT dated 01/03/2015. Chest x-ray dated 10/03/2017. TECHNIQUE: Following the IV administration of 93 cc of Optiray 320, CT angiogram of the chest was performed from the upper abdomen to the thoracic inlet utilizing the pulmonary embolus protocol. Images are reviewed in the axial, sagittal, and coronal planes. 3-D MIPS images are created and assessed. IV contrast was administered without complication. A dose lowering technique was utilized adhering to the principles of ALARA. The examination is significantly degraded by motion artifact as well as by streak artifact from the arms which could not be elevated above the chest. CT DOSE: 732.92 mGy.cm FINDINGS: Thyroid: Atrophic. Thoracic aorta: There is atherosclerotic calcification of the thoracic aorta, which is normal in caliber and demonstrates standard 3-vessel arch anatomy. The thoracic aorta is not well opacified. Pulmonary vasculature: The pulmonary trunk is normal in caliber. There are no filling defects identified in main, lobar, or proximal segmental pulmonary branches to suggest pulmonary embolus. Evaluation of the peripheral branches is degraded by motion artifact. Heart: The heart is markedly enlarged and without pericardial effusion. The coronary arteries are densely calcified. A pacemaker is present in the left chest wall. Lungs and pleural spaces: Evaluation of lung parenchyma significantly compromised by motion artifact. Changes of chronic interstitial lung disease with subpleural reticulation are similar to prior examinations. Peribronchial thickening is identified. Groundglass opacities are present throughout both lungs. The trachea and central airways are grossly clear. There are trace pleural effusions. Mediastinum: There are numerous mildly enlarged mediastinal lymph nodes. A right paratracheal node on image #214 measures 1.3 cm in short axis. Gisela: Grossly clear. Axillae: There is no axillary lymphadenopathy. Upper abdomen: There is a small hiatal hernia. Partially visualized upper abdominal viscera is within otherwise grossly normal in appearance. Skeletal structures: The skeletal structures are osteopenic. Degenerative change is seen throughout the thoracic spine. No lytic or blastic bony lesions are seen. There are healed left-sided rib fractures. Chronic posttraumatic deformity and postoperative change is seen in the right humeral head. IMPRESSION: 1. Significantly streak and motion compromised examination. 2. There is no evidence of central pulmonary embolus in the main, lobar, or proximal segmental pulmonary arteries. 3. Marked cardiomegaly and cardiac pacemaker. Changes of congestive failure were better appreciated by x-ray. 4. Groundglass opacities are present throughout both lungs, and likely represent interstitial edema. Correlate clinically for evidence of a superimposed infectious/inflammatory pneumonitis. 5. There are trace pleural effusions. 6. Changes of chronic interstitial lung disease are grossly similar to prior examinations. 7. Mildly enlarged mediastinal lymph nodes are identified. Electronically signed by: Rolando Causey M.D. 10/03/2017 7:17 PM Dictated Date/Time: 10/03/2017 7:09 PM
--- NOTE | 2017-10-03 19:19 | EMERGENCY ROOM VISIT NOTE ---
History Report prepared by Candi: Jerilyn Tinajero Under the Supervision of: Dr. Kee Mendoza M.D. First contact with patient: 13:01 Chief Complaint: ALTERED MENTAL STATUS Stated Complaint: AMS History of Present Illness The patient is an 86 year old male who presents to the Emergency Room with complaints of worsening altered mental status starting yesterday morning. The notes that he had multiple brain bleeds last week and was discharged two days ago. His states that when he was released from [facility] he could say his name and date and now he cannot. She reports that he was restless all night and hasn't been swallowing his saliva. She reports that he hasn't taken any of his medications today and only got half of them yesterday. The reports that she is worried since he needs to take his Dilantin for seizures. The patient complains of a headache. Discharge paperwork shows that he was admitted to [facility] on 09/29 and discharged from neurosurgery 2 days ago for an acute subdural hematoma. Pradaxa was held. He showed questionable, patchy congestion in the left lung base. No antibiotics were given. Pt denies LOC, fevers, chills, diaphoresis, visual changes, cough, neck pain, chest pain, breathing difficulties, nausea, vomiting, abdominal pain, back pain , melena, hematochezia, urinary symptoms, numbness, weakness, lymphadenopathy, rash, or other complaints. Limited HPI and ROS secondary to mental status. Source of History: patient, transfer records, spouse/significant other Onset: yesterday Position: other (global) Quality: other (global) Timing: worsening Associated Symptoms: + headache Note: The patient's complains of the patient being restless and not being able to swallow his own saliva. Review of Systems See HPI for pertinent positives and negatives. A total of ten systems were reviewed and were otherwise negative. 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 (17) Pulmonary fibrosis (18) PURE HYPERCHOLESTEROLEM (19) Renal cyst, right (20) Weakness Family History Heart disease Social History Smoking Status: Former Smoker Alcohol Use: none Drug Use: none Marital Status: Housing Status: lives with significant other Occupation Status: retired Current/Historical Medications Scheduled Citalopram (Citalopram Hydrobromide), 20 MG PO QAM Furosemide (Furosemide), 40 MG PO DAILY Levothyroxine Sodium (Levothyroxine Sodium), 125 MCG PO DAILYBB Lisinopril (Prinivil), 5 MG PO QAM Metoprolol Succ (Toprol Xl) (Toprol-Xl), 25 MG PO DAILY Phenytoin Sodium (Dilantin), 100 MG PO TID Prednisone Tab (Prednisone), 10 MG PO QAM Scheduled PRN Acetaminophen (Tylenol), 650 MG PO Q4 PRN for Fever Allergies Coded Allergies: KRISTEN Inhibitors (Unverified Allergy, Unknown, HYPERKALEMIA, 10/03/17) Physical Exam Vital Signs Date Time Temp Pulse Resp B/P (MAP) Pulse Ox O2 Delivery O2 Flow Rate FiO2 10/03/17 17:41 82 28 124/80 97 Non-Rebreather 15.0 10/03/17 17:18 98 10/03/17 16:59 118 130/89 10/03/17 15:59 128/75 10/03/17 15:58 140 36 91 10/03/17 15:13 124 30 91 10/03/17 15:03 160/93 10/03/17 14:58 128 14 90 10/03/17 14:43 141 34 90 10/03/17 14:42 125/95 10/03/17 14:28 144 33 93 10/03/17 14:13 124 13 93 10/03/17 14:06 154/94 10/03/17 13:58 125 17 90 10/03/17 13:43 159 23 88 10/03/17 13:28 144 35 89 10/03/17 13:27 3.0 10/03/17 13:27 38.6 130 16 143/89 92 Nasal Cannula 3.0 10/03/17 13:27 92 Nasal Cannula 3.0 10/03/17 13:13 118 35 89 10/03/17 12:59 128 10/03/17 12:58 145 23 90 10/03/17 12:49 143/89 Physical Exam GENERAL: Awake, alert, well-appearing, in no distress HENT: Normocephalic, atraumatic. Oropharynx unremarkable. EYES: Normal conjunctiva. Sclera non-icteric. NECK: Supple. No nuchal rigidity. FROM. No JVD. RESPIRATORY: Clear to auscultation. CARDIAC: Tachycardic rate, irregular rhythm. Extremities warm and well perfused. Pulses equal. ABDOMEN: Soft, non-distended. No tenderness to palpation. No rebound or guarding. No masses. RECTAL: Deferred. MUSCULOSKELETAL: Chest examination reveals no tenderness. The back is symmetrical on inspection without obvious abnormality. There is no CVA tenderness to palpation. No joint edema. LOWER EXTREMITIES: Calves are equal size bilaterally and non-tender. No edema. No discoloration. NEURO: Altered sensorium. No sensory or motor deficits noted. Not following commands. Family had to help with history. SKIN: No rash or jaundice noted. Medical Decision & Procedures ER Provider Diagnostic Interpretation: Radiology results as stated below per my review and radiologist interpretation: SINGLE VIEW CHEST CLINICAL HISTORY: Generalized weakness. FINDINGS: An AP, portable, upright chest radiograph is compared to study dated 09/29/2017. Correlation is made with chest CT dated 01/03/2015. The examination is degraded by portable technique and patient rotation. A single lead cardiac pacemaker is unchanged in position. The heart is enlarged and there is atherosclerotic calcification of the thoracic aorta. There is pulmonary vascular congestion. Bilateral airspace opacities are noted and likely represent interstitial edema. There are low lung volumes with changes of chronic residual lung disease which are similar to previous. There are small pleural effusions. No pneumothorax is seen. The skeletal structures are osteopenic. The bony thorax is grossly intact. IMPRESSION: 1. Cardiomegaly and cardiac pacemaker. There is evidence of congestive failure. 2. Bilateral airspace opacities are identified and likely represent interstitial edema. Correlate clinically for evidence of superimposed pneumonia. 3. Small pleural effusions. 4. Changes of underlying interstitial lung disease are similar to previous. Electronically signed by: Rolando Causey M.D. 10/03/2017 2:59 PM Dictated Date/Time: 10/03/2017 2:[address] SCAN OF THE BRAIN WITHOUT IV CONTRAST CLINICAL HISTORY: Change in mental status. Recent intracranial hemorrhage. COMPARISON STUDY: CT scans of the brain dated 09/29/2017 and 07/12/2017. TECHNIQUE: Unenhanced axial CT scan of the brain is performed from the vertex to the skull base. FINDINGS: Brain parenchyma: There is a mixed attenuation subdural hematoma again seen along the left convexity. The volume of hyperdense/acute appearing blood appears diminished from 1129 and 17. This measures a maximum of 12 mm in thickness. This effaces the subjacent cortical sulci. No midline shift is seen. Subdural blood along the tentorium cerebelli has largely resolved. Chronic appearing low-attenuation subdural fluid is again seen along the midline falx and the right convexity. 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 There is only trace residual subarachnoid blood identified in the right parietal sulci on image #18. There are age-related involutional changes noting mild patchy subcortical and periventricular microangiopathic change. There is no evidence of acute territorial ischemia by CT criteria. Law-white matter is preserved. Ventricles, sulci, cisterns: Prominent secondary to involutional change. Trace blood in the right lateral ventricle is new from previous as seen on image #14. Intracranial vasculature: There is atherosclerotic calcification of the cavernous carotid and vertebral arteries. Calvarium: The skeletal structures are osteopenic. No depressed calvarial fracture is seen. A small sebaceous cyst is present within the suboccipital soft tissues. Sinuses and mastoids: There is evidence of previous paranasal sinus surgery. Mild mucosal thickening is seen within the maxillary antra. The remaining visualized paranasal sinuses are clear. There is a left mastoid effusion. The right mastoid air cells are well pneumatized. Cerumen is seen within the left external auditory canal. Orbits: The bony orbits are grossly intact. Bilateral ocular lens implants are noted. IMPRESSION: 1. No enlarging subdural hematoma is identified. There has been a modest decrease in the size of the mixed attenuation subdural hematoma along the left convexity as compared to 09/29/2017. The volume of hyperdense/acute appearing blood has decreased. This causes mild mass effect with effacement of the subjacent cortical sulci. No midline shift is seen. 2. Trace intraventricular blood is new from previous. 3. Subdural blood seen along the tentorium cerebelli has almost completely resolved. 4. There is only trace residual subarachnoid hemorrhage identified along the right posterior parietal cortical sulci. This is almost completely resolved. 5. 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 6. There is no evidence of acute territorial ischemia by CT criteria. Electronically signed by: Rolando Causey M.D. 10/03/2017 5:47 PM Dictated Date/Time: 10/03/2017 5:38 PM Laboratory Results 10/03/17 13:35 Red Blood Count 3.77, Mean Corpuscular Volume 108.0, Mean Corpuscular Hemoglobin 36.3, Mean Corpuscular Hemoglobin Concent 33.7, Mean Platelet Volume 9.8, Neutrophils (%) (Auto) 60.9, Lymphocytes (%) (Auto) 24.5, Monocytes (%) ( Auto) 14.0, Eosinophils (%) (Auto) 0.0, Basophils (%) (Auto) 0.2, Neutrophils # (Auto) 10.91, Lymphocytes # (Auto) 4.39, Monocytes # (Auto) 2.51, Eosinophils # (Auto) 0.00, Basophils # (Auto) 0.03 10/03/17 13:35 Test 10/03/17 00:00 10/03/17 13:35 10/03/17 18:10 Urine Color DK YELLOW Urine Appearance CLEAR (CLEAR) Urine pH 5.0 (4.5-7.5) Urine Specific [place] 1.028 (1.000-1.030) Urine Protein 3+ (NEG) Urine Glucose (UA) NEG (NEG) Urine Ketones 2+ (NEG) Urine Occult Blood 2+ (NEG) Urine Nitrite NEG (NEG) Urine Bilirubin 2+ (NEG) Urine Urobilinogen NEG (NEG) Urine Leukocyte Esterase TRACE (NEG) Urine WBC (Auto) 1-5 /hpf (0-5) Urine RBC (Auto) 5-10 /hpf (0-4) Urine Hyaline Casts (Auto) 1-5 /lpf (0-5) Urine Epithelial Cells (Auto) >30 /lpf (0-5) Urine Bacteria (Auto) NEG (NEG) Urine Renal Epithelial Cells 0-5 /lpf (0-5) Urine Pathogenic Casts See comments /lpf (0) Urine Mucus PRESENT (NONE PRSENT) White Blood Count 17.91 K/uL (4.8-10.8) Red Blood Count 3.77 M/uL (4.7-6.1) Hemoglobin 13.7 g/dL (14.0-18.0) Hematocrit 40.7 % (42-52) Mean Corpuscular Volume 108.0 fL (80-100) Mean Corpuscular Hemoglobin 36.3 pg (25-34) Mean Corpuscular Hemoglobin Concent 33.7 g/dl (32-36) Platelet Count 196 K/uL (130-400) Mean Platelet Volume 9.8 fL (7.4-10.4) Neutrophils (%) (Auto) 60.9 % Lymphocytes (%) (Auto) 24.5 % Monocytes (%) (Auto) 14.0 % Eosinophils (%) (Auto) 0.0 % Basophils (%) (Auto) 0.2 % Neutrophils # (Auto) 10.91 K/uL (1.4-6.5) Lymphocytes # (Auto) 4.39 K/uL (1.2-3.4) Monocytes # (Auto) 2.51 K/uL (0.11-0.59) Eosinophils # (Auto) 0.00 K/uL (0-0.5) Basophils # (Auto) 0.03 K/uL (0-0.2) RDW Standard Deviation 54.3 fL (36.4-46.3) RDW Coefficient of Variation 13.8 % (11.5-14.5) Immature Granulocyte % (Auto) 0.4 % Immature Granulocyte # (Auto) 0.07 K/uL (0.00-0.02) Prothrombin Time 12.0 SECONDS (9.0-12.0) Prothromb Time International Ratio 1.1 (0.9-1.1) Activated Partial Thromboplast Time 33.8 SECONDS (21.0-31.0) Partial Thromboplastin Ratio 1.3 Anion Gap 12.0 mmol/L (3-11) Est Creatinine Clear Calc Drug Dose 48.4 ml/min Estimated GFR () 68.6 Estimated GFR (Non- 59.2 BUN/Creatinine Ratio 26.1 (10-20) Calcium Level 9.0 mg/dl (8.5-10.1) Magnesium Level 2.1 mg/dl (1.8-2.4) Total Bilirubin 1.4 mg/dl (0.2-1) Direct Bilirubin 0.6 mg/dl (0-0.2) Aspartate Amino Transf (AST/SGOT) 29 U/L (15-37) Alanine Aminotransferase (ALT/SGPT) 22 U/L (12-78) Alkaline Phosphatase 89 U/L (45-117) Total Creatine Kinase 197 U/L (39-308) Creatine Kinase MB 1.2 ng/ml (0.5-3.6) Creatine Kinase MB Ratio 0.6 (0-3.0) Troponin I 2.170 ng/ml (0-0.045) Total Protein 7.7 gm/dl (6.4-8.2) Albumin 3.1 gm/dl (3.4-5.0) Thyroid Stimulating Hormone (TSH) 1.910 uIu/ml (0.300-4.500) Phenytoin (Dilantin) Level 10.2 mcg/mL (10-20) Laboratory results reviewed by me Medications Administered Medications (Trade) Dose Ordered Sig/Chel Route Start Time Stop Time Status Last Admin Dose Admin Sodium Chloride 1,000 ml @ 125 mls/hr Q8H STAT IV 10/03/17 13:01 10/03/17 21:00 10/03/17 17:36 125 MLS/HR Sodium Chloride 1,000 ml @ 999 mls/hr Q1H1M STAT IV 10/03/17 13:11 10/03/17 14:11 DC 10/03/17 14:01 999 MLS/HR Acetaminophen (Tylenol Supp) 975 mg NOW STAT DC 10/03/17 13:11 10/03/17 13:13 DC 10/03/17 14:01 975 MG Diltiazem HCl (Cardizem Bolus / Drip) 1 ea NOW STAT IV 10/03/17 14:21 10/03/17 16:00 DC 10/03/17 14:21 1 EA Diltiazem HCl (Cardizem Inj) 10 mg NOW STAT IV 10/03/17 14:21 10/03/17 16:00 DC 10/03/17 15:08 10 MG Potassium Chloride (Kcl 10 Meq / Wtr) 10 meq NOW STAT IV 10/03/17 14:22 10/03/17 14:23 DC 12/3/17 15:06 10 MEQ Lorazepam (Ativan Inj) 0.5 mg NOW STAT IV 10/03/17 15:28 10/03/17 15:29 DC 10/03/17 15:33 0.5 MG Haloperidol Lactate (Haldol Inj) 2 mg NOW STAT IV 10/03/17 15:56 10/03/17 15:59 DC 10/03/17 17:25 2 MG Vancomycin HCl 1700 mg/Sodium Chloride 534 ml @ 200 mls/hr ONE STAT IV 10/03/17 15:56 10/03/17 18:36 DC 10/03/17 16:59 200 MLS/HR Metoprolol Tartrate (Lopressor Iv) 5 mg Q5M STAT IV 10/03/17 15:59 10/03/17 16:01 DC 10/03/17 16:59 5 MG Cefepime HCl 1000 mg/Syringe 11 ml @ 5.5 mls/min 1630 IV 10/03/17 16:30 10/03/17 16:31 DC 10/03/17 16:59 5.5 MLS/MIN ECG Indication: altered mental status Rate (beats per minute): 135 Rhythm: atrial fibrillation (with RVR) Findings: Q waves (Inferior), T-wave inversion (Anterior), other (LVH) ED Course 1301: Ordered NSS 1000 ml @ 125 mls/hr IV. 1303: The patient was evaluated in room C6. A complete history and physical exam was performed. 1311: Ordered Tylenol Supp 975 mg DC, NSS 1000 ml @ 999 mls/hr IV. 1420: I updated the family and am ordering Cardizem. 1421: Ordered Cardizem Inj 10 mg, Diltiazem HCl 1 ea IV. 1422: Ordered Potassium chloride 10 meq IV. 1430: Ordered Diltiazem HCl 125 mg/ Dextrose 125 ml @ 0 mls/ hr Protocol PRN IV Titration. 1445: Ordered Potassium chloride 10 meq/ Prmx 100 ml @ 100 mls/hr IV. 1528: Ordered Ativan Inj 0.5 mg IV. 1556: Ordered Vancomycin Hcl 1700 mg/Sodium Chloride 534 ml @ 200 mls/hr IV, Haldol Inj 2 mg IV. 1559: Ordered Lopressor Iv 5 mg IV. 1616: I reevaluated the patient and tried to help get an IV back. IV team came and was able to establish one. 1630: Ordered Cefepime HCl 1000 mg/ Syringe 11 ml @ 5.5 mls/min Protocol. 1743: I reevaluated the patient and he is resting comfortably. 175: Discussed the patient's case with Dr. Seaman. The patient will be evaluated for further treatment and disposition. Medical Decision Prior records/ancillary studies reviewed and summarized above. Nursing notes reviewed and agree them. Additional history obtained from family. The patient's history was concerning for altered mental status. Differential diagnosis: Etiologies such as infection, hypoglycemia, electrolyte abnormalities, cardiac sources, intracerebral event, toxicologic, neurologic, as well as others were entertained. Physical examination: As above. ER treatment provided: IV Lock Normal saline hydration Cardizem bolus and drip IV metoprolol IV Ativan and Haldol Supplemental oxygen IV cefepime IV vancomycin IV potassium On reassessment the patient was stabilizing. Diagnostics interpretation by me: ECG: Concerning for rapid A. fib as above. The labs revealed a significant leukocytosis on CBC. Chemistry panel revealed normal renal function. Troponin was significantly elevated concerning for cardiac ischemia. Urinalysis unremarkable blood cultures pending. Imaging studies: Chest x-ray as above. CT scan as above. The patient is a DO NOT RESUSCITATE/DO NOT RESUSCITATE. His head CT is better. He has a pneumonia, rapid atrial fibrillation with ischemic change and ECG and an elevated troponin. He has hypokalemia. He seems somewhat dry. He was treated as above. Family felt comfortable the patient staying here and they did not want to go back to [facility]. I did discuss the case with the hospitalist service. Consultation: A consultation was placed with the hospitalist, . The case was discussed and diagnostics were reviewed. She did request a CT scan and blood gas. This was ordered. The patient unfortunately cannot have a CT scan as this adequate IV for the CT scan malfunctioned. She was informed. The patient was evaluated in the ER for further treatment. Medication Reconcilliation Current Medication List: was personally reviewed by me Blood Pressure Screening Patient's blood pressure: Normal blood pressure Will be further monitored by the hospitalist. Consults Time Called: 1751 Consulting Physician: Dr. Seaman- Hospitalist Returned Call: [phone] Discussed the patient's case with Dr. Seaman. The patient will be evaluated for further treatment and disposition. Impression Primary Impression: Altered mental status Additional Impressions: Pneumonia Elevated troponin Atrial fibrillation with RVR Hypokalemia Subdural hematoma Critical Care I have personally spent greater than 60 minutes of critical care time in the direct management of this patient. This includes bedside care, interpretation of diagnostic studies, and testing, discussion with consultants, patient, and family members, and other required patient management activities. This 60 minutes is in excess of all separately billable procedures. Scribe Attestation The scribe's documentation has been prepared under my direction and personally reviewed by me in its entirety. I confirm that the note above accurately reflects all work, treatment, procedures, and medical decision making performed by me. Departure Information Dispostion Being Evaluated By Hospitalist Referrals Camden Dennis D.O. (PCP) Patient Instructions My [facility] Problem Qualifiers
[2017-10-03] MEDS ORDERED: ONDANSETRON INJ 2 MG/ML 2 ML VIAL IV PRN (20:15)
[2017-10-03] MEDS ORDERED: ACETAMINOPHEN 325 MG TAB PO PRN (20:15)
[2017-10-03] MEDS ORDERED: FAMOTIDINE IV INJ 20 MG in DEXTROSE 5% 100ML 100 ML IV SCH (20:15)
[2017-10-03] MEDS ORDERED: CEFEPIME IV 1,000 MG in DEXTROSE 5% 100ML 100 ML IV SCH (20:30)
[2017-10-03 20:53] LABS: ARTERIAL BLD GAS O2 SATURATION 99.3 % (90-95); ARTERIAL BLOOD GAS BASE EXCESS 2.9 mEq/L (-9-1.8); ARTERIAL BLOOD GAS HCO3 28 mmol/L (19-24); ARTERIAL BLOOD GAS PO2 161 mm/Hg (80-95); ARTERIAL BLOOD GAS pH 7.43 (7.35-7.45)
[2017-10-03 20:54] LABS: ALLEN TEST POS (POS); O2 ADMINISTRATION 14L O2
[2017-10-03] MEDS ORDERED: LEVALBUTEROL/IPRATROPIUM NEB INH SCH (21:00)
[2017-10-03] MEDS: METOPROLOL SUCC 25MG EXT REL TAB PO SCH (21:00)
[2017-10-03] MEDS ORDERED: PHENYTOIN SODIUM ER 100 MG CAP PO SCH (21:00)
[2017-10-03] MEDS ORDERED: LORAZEPAM 2 MG/ML 1 ML VIAL ONE (21:21)
[2017-10-03] MEDS ORDERED: VANCOMYCIN CONSULT ACTIVE PRN (22:15)
[2017-10-03 22:33] VITALS: BP 132/82; PULSE 112; TEMP 36.9; O2SAT 97; Ht 167.6 cm; Wt 77.5 kg
[2017-10-03] MEDS ORDERED: FUROSEMIDE 40 MG/4 ML VIAL IV STA (22:49)
--- NOTE | 2017-10-03 23:05 | Pharmacy Progress Note ---
Pharmacy Abx Initial Consult Date of Service Oct 03, 2017. Pharmacy Dosing Scope Date of Consult: 10/03/17 Consultation requested by: Dr. Carter Pharmacy is consulted to initiate vancomycin IV dosing therapy, order appropriate labs and adjust drug dose/frequency. Subjective The patient is a 86 year old male admitted on Oct 03, 2017 at 20:21. Objective Height (Feet): 5 Height (Inches): 6.00 Weight (Kilograms): 78.100 Vital Signs (Past 12Hrs) Vital Signs Past 12 Hours Date Time Temp Pulse Resp B/P (MAP) Pulse Ox O2 Delivery O2 Flow Rate FiO2 10/03/17 22:33 36.9 112 20 132/82 97 Mask 10.0 10/03/17 22:00 151/103 10/03/17 21:41 122 28 96 Non-Rebreather 15.0 10/03/17 21:30 144/104 10/03/17 21:11 121 26 99 Non-Rebreather 15.0 10/03/17 21:06 104 26 100 Non-Rebreather 15.0 10/03/17 21:00 147/97 10/03/17 20:43 141/97 10/03/17 20:36 109 23 95 Non-Rebreather 15.0 10/03/17 20:06 106 24 98 Non-Rebreather 15.0 10/03/17 20:01 154/105 10/03/17 19:36 117 31 96 Non-Rebreather 15.0 10/03/17 19:31 148/92 10/03/17 19:30 113 24 97 Non-Rebreather 15.0 10/03/17 19:09 143/96 10/03/17 17:41 82 28 124/80 97 Non-Rebreather 15.0 10/03/17 17:18 98 10/03/17 16:59 118 130/89 10/03/17 15:59 128/75 10/03/17 15:58 140 36 91 10/03/17 15:13 124 30 91 10/03/17 15:03 160/93 10/03/17 14:58 128 14 90 10/03/17 14:43 141 34 90 10/03/17 14:42 125/95 10/03/17 14:28 144 33 93 10/03/17 14:13 124 13 93 10/03/17 14:06 154/94 10/03/17 13:58 125 17 90 10/03/17 13:43 159 23 88 10/03/17 13:28 144 35 89 10/03/17 13:27 3.0 10/03/17 13:27 38.6 130 16 143/89 92 Nasal Cannula 3.0 10/03/17 13:27 92 Nasal Cannula 3.0 10/03/17 13:13 118 35 89 10/03/17 12:59 128 10/03/17 12:58 145 23 90 10/03/17 12:49 143/89 Lab Results (24Hrs) Laboratory Tests (24 Hours) Test 10/03/17 13:35 White Blood Count 17.91 K/uL (4.8-10.8) H Red Blood Count 3.77 M/uL (4.7-6.1) L Hemoglobin 13.7 g/dL (14.0-18.0) L Hematocrit 40.7 % (42-52) L Mean Corpuscular Volume 108.0 fL (80-100) H Mean Corpuscular Hemoglobin 36.3 pg (25-34) H Mean Corpuscular Hemoglobin Concent 33.7 g/dl (32-36) Platelet Count 196 K/uL (130-400) Mean Platelet Volume 9.8 fL (7.4-10.4) Neutrophils (%) (Auto) 60.9 % Lymphocytes (%) (Auto) 24.5 % Monocytes (%) (Auto) 14.0 % Eosinophils (%) (Auto) 0.0 % Basophils (%) (Auto) 0.2 % Neutrophils # (Auto) 10.91 K/uL (1.4-6.5) H Lymphocytes # (Auto) 4.39 K/uL (1.2-3.4) H Monocytes # (Auto) 2.51 K/uL (0.11-0.59) H Eosinophils # (Auto) 0.00 K/uL (0-0.5) Basophils # (Auto) 0.03 K/uL (0-0.2) Total Creatine Kinase 197 U/L (39-308) Micro Results Date/Time Source Procedure Growth Status 10/03/17 14:00 Blood Blood Culture Pending Received 10/03/17 13:35 Blood Blood Culture Pending Received 10/03/17 00:00 Urine,Catheterized Urine Culture Pending Received Risk Factors for Resistance * * Hospitalization for 48 hours or more within the past 90 days Assessment & Plan Assessment 86 year old male with a PMH of SDH and hemorrhagic strokes, COPD, cardiac ischemia, and ARF admitted with worsening mental status after a prolonged hospitalization at [facility]. Concern for pneumonia. Plan vancomycin for treatment of pulmonary source Vancomycin IV * Loading dose: 1700 mg (21 mg/kg) * Maintenance dose: 1250 mg IV (15 mg/kg) every 18 hours * Goal trough level for pulmonary source : 15 to 20 mcg/mL * Trough ordered for 10/05/17 prior to 2100 dose Pharmacy will continue to follow and will adjust dose/frequency as necessary. Thank you.
[2017-10-03] MEDS: FAMOTIDINE IV INJ 20 MG in SYRINGE 3 ML IV SCH (23:15)
[2017-10-03] MEDS: POTASSIUM CHLR 10 MEQ / WTR 10 MEQ in PREMIXED WATER 100 ML IV SCH (23:15)
--- NOTE | 2017-10-03 23:16 | History and Physical ---
History & Physical Date & Time of Service: Oct 03, 2017 at 23:16 Chief Complaint: Acute Respiratory Failure W/ Hypoxia, Afib W/ Rvr Primary Care Physician: Camden Dennis D.O. History of Present Illness Source: family, hospital records The patient is an 86-year-old male brought to the emergency department by family due to worsening mental status change that began since yesterday morning. The patient had been seen in this emergency department on September 29 after a fall, was found to have intracranial hemorrhage, and was sent to [facility], where he was discharged on October 01. The patient himself is unable to communicate and contribute to history of present illness or review of systems due to altered mental state, and his family in attendance provides all information. They report that he has been eating reasonably well, denied any issues with coughing suggesting aspiration, and no other GI or symptoms suggestive of alternate source other than his known issue with hypoxia. CT in the emergency department suggests improvement of intracranial hemorrhage. Chest x-ray is suggestive of interstitial edema and pneumonia. Past Medical/Surgical History Medical Problems: (1) Acute renal failure Status: Resolved (2) Back pain Status: Resolved (3) Bradycardia Status: Chronic (4) CAD (coronary artery disease) Status: Chronic (5) Cardiac ischemia Status: Resolved (6) Chronic renal insufficiency Status: Chronic (7) COPD (chronic obstructive pulmonary disease) Status: Chronic (8) Dehydration Status: Resolved (9) Depression Status: Chronic (10) HYPERTENSION NOS Status: Chronic (11) HYPOTHYROIDISM NOS Status: Chronic (12) Low back pain Status: Chronic (13) Lumbar radiculopathy Status: Chronic (14) Nausea & vomiting Status: Resolved (15) Nausea & vomiting Status: Resolved (16) POSTINFLAM PULM FIBROSIS Status: Chronic (17) Pulmonary fibrosis Status: Chronic (18) PURE HYPERCHOLESTEROLEM Status: Chronic (19) Renal cyst, right Status: Chronic (20) Weakness Status: Resolved Family History Heart disease Social History Smoking Status: Never Smoker Smokeless Tobacco Use: No Alcohol Use: none Drug Use: none Marital Status: Housing status: lives with family Occupational Status: retired Immunizations History of Influenza Vaccine: No History of Tetanus Vaccine?: No History of Pneumococcal: No History of Hepatitis B Vaccine: No Multi-Drug Resistant Organisms History of MDRO: No Allergies Coded Allergies: KRISTEN Inhibitors (Unverified Allergy, Unknown, HYPERKALEMIA, 10/03/17) Home Medications Scheduled Citalopram (Citalopram Hydrobromide), 20 MG PO QAM Furosemide (Furosemide), 40 MG PO DAILY Levothyroxine Sodium (Levothyroxine Sodium), 125 MCG PO DAILYBB Lisinopril (Prinivil), 5 MG PO QAM Metoprolol Succ (Toprol Xl) (Toprol-Xl), 25 MG PO DAILY Phenytoin Sodium (Dilantin), 100 MG PO TID Prednisone Tab (Prednisone), 10 MG PO QAM Scheduled PRN Acetaminophen (Tylenol), 650 MG PO Q4 PRN for Fever Review of Systems The patient himself is unable to contribute to review of systems. All information is as noted above in the history of present illness Physical Exam Vital Signs Date Time Temp Pulse Resp B/P (MAP) Pulse Ox O2 Delivery O2 Flow Rate FiO2 10/03/17 22:33 36.9 112 20 132/82 97 Mask 10.0 10/03/17 22:00 151/103 10/03/17 21:41 122 28 96 Non-Rebreather 15.0 10/03/17 21:30 144/104 10/03/17 21:11 121 26 99 Non-Rebreather 15.0 10/03/17 21:06 104 26 100 Non-Rebreather 15.0 10/03/17 21:00 147/97 10/03/17 20:43 141/97 10/03/17 20:36 109 23 95 Non-Rebreather 15.0 10/03/17 20:06 106 24 98 Non-Rebreather 15.0 10/03/17 20:01 154/105 10/03/17 19:36 117 31 96 Non-Rebreather 15.0 10/03/17 19:31 148/92 10/03/17 19:30 113 24 97 Non-Rebreather 15.0 10/03/17 19:09 143/96 10/03/17 17:41 82 28 124/80 97 Non-Rebreather 15.0 10/03/17 17:18 98 10/03/17 16:59 118 130/89 10/03/17 15:59 128/75 10/03/17 15:58 140 36 91 10/03/17 15:13 124 30 91 10/03/17 15:03 160/93 10/03/17 14:58 128 14 90 10/03/17 14:43 141 34 90 10/03/17 14:42 125/95 10/03/17 14:28 144 33 93 10/03/17 14:13 124 13 93 10/03/17 14:06 154/94 10/03/17 13:58 125 17 90 10/03/17 13:43 159 23 88 10/03/17 13:28 144 35 89 10/03/17 13:27 3.0 10/03/17 13:27 38.6 130 16 143/89 92 Nasal Cannula 3.0 10/03/17 13:27 92 Nasal Cannula 3.0 10/03/17 13:13 118 35 89 10/03/17 12:59 128 10/03/17 12:58 145 23 90 10/03/17 12:49 143/89 The patient is awake, unresponsive and intermittently mildly agitated pulling at lines, normocephalic and atraumatic, lying in bed and in intermittent mild distress. HEENT--PERRL, EOMI, mucous membranes and oropharynx dry. Neck--supple, no JVD or bruits, thyroid normal, trachea midline, no adenopathy. Heart--normal S1 and S2, no extra beats, no murmurs, rubs or gallops. Lungs--few coarse breath sounds bilaterally but overall diminished, intermittent mild respiratory distress, no accessory muscle use. Abdomen--normal bowel sounds and soft, nontender and nondistended, no hernias or masses, no organomegaly. Extremities--no cyanosis, clubbing or edema. There are good distal pulses b/l. Dermatologic--normal skin turgor, normal color, warm and dry, no abnormal lymph nodes, no rash. Neurologic--cranial nerves II through XII grossly intact. Rheumatologic--normal range of motion. Psychiatric--unresponsive, intermittently mildly agitated. Diagnostics Laboratory Results Results Past 24 Hours Test 10/03/17 00:00 10/03/17 13:35 10/03/17 20:37 Range/Units Urine Color DK YELLOW Urine Appearance CLEAR CLEAR Urine pH 5.0 4.5-7.5 Urine Specific Cushman 1.028 1.000-1.030 Urine Protein 3+ NEG Urine Glucose (UA) NEG NEG Urine Ketones 2+ NEG Urine Occult Blood 2+ NEG Urine Nitrite NEG NEG Urine Bilirubin 2+ NEG Urine Urobilinogen NEG NEG Urine Leukocyte Esterase TRACE NEG Urine WBC (Auto) 1-5 0-5 /hpf Urine RBC (Auto) 5-10 0-4 /hpf Urine Hyaline Casts (Auto) 1-5 0-5 /lpf Urine Epithelial Cells (Auto) >30 0-5 /lpf Urine Bacteria (Auto) NEG NEG Urine Renal Epithelial Cells 0-5 0-5 /lpf Urine Pathogenic Casts See comments 0 /lpf Urine Mucus PRESENT NONE PRSENT White Blood Count 17.91 4.8-10.8 K/uL Red Blood Count 3.77 4.7-6.1 M/uL Hemoglobin 13.7 14.0-18.0 g/dL Hematocrit 40.7 42-52 % Mean Corpuscular Volume 108.0 80-100 fL Mean Corpuscular Hemoglobin 36.3 25-34 pg Mean Corpuscular Hemoglobin Concent 33.7 32-36 g/dl Platelet Count 196 130-400 K/uL Mean Platelet Volume 9.8 7.4-10.4 fL Neutrophils (%) (Auto) 60.9 % Lymphocytes (%) (Auto) 24.5 % Monocytes (%) (Auto) 14.0 % Eosinophils (%) (Auto) 0.0 % Basophils (%) (Auto) 0.2 % Neutrophils # (Auto) 10.91 1.4-6.5 K/uL Lymphocytes # (Auto) 4.39 1.2-3.4 K/uL Monocytes # (Auto) 2.51 0.11-0.59 K/uL Eosinophils # (Auto) 0.00 0-0.5 K/uL Basophils # (Auto) 0.03 0-0.2 K/uL RDW Standard Deviation 54.3 36.4-46.3 fL RDW Coefficient of Variation 13.8 11.5-14.5 % Immature Granulocyte % (Auto) 0.4 % Immature Granulocyte # (Auto) 0.07 0.00-0.02 K/uL Prothrombin Time 12.0 9.0-12.0 SECONDS Prothromb Time International Ratio 1.1 0.9-1.1 Activated Partial Thromboplast Time 33.8 21.0-31.0 SECONDS Partial Thromboplastin Ratio 1.3 Sodium Level 136 136-145 mmol/L Potassium Level 3.0 3.5-5.1 mmol/L Chloride Level 97 98-107 mmol/L Carbon Dioxide Level 28 21-32 mmol/L Anion Gap 12.0 3-11 mmol/L Blood Urea Nitrogen 29 7-18 mg/dl Creatinine 1.12 0.60-1.40 mg/dl Est Creatinine Clear Calc Drug Dose 48.4 ml/min Estimated GFR () 68.6 Estimated GFR (Non- 59.2 BUN/Creatinine Ratio 26.1 10-20 Random Glucose 98 70-99 mg/dl Calcium Level 9.0 8.5-10.1 mg/dl Magnesium Level 2.1 1.8-2.4 mg/dl Total Bilirubin 1.4 0.2-1 mg/dl Direct Bilirubin 0.6 0-0.2 mg/dl Aspartate Amino Transf (AST/SGOT) 29 15-37 U/L Alanine Aminotransferase (ALT/SGPT) 22 12-78 U/L Alkaline Phosphatase 89 45-117 U/L Total Creatine Kinase 197 39-308 U/L Creatine Kinase MB 1.2 0.5-3.6 ng/ml Creatine Kinase MB Ratio 0.6 0-3.0 Troponin I 2.170 0-0.045 ng/ml Total Protein 7.7 6.4-8.2 gm/dl Albumin 3.1 3.4-5.0 gm/dl Thyroid Stimulating Hormone (TSH) 1.910 0.300-4.500 uIu/ml Phenytoin (Dilantin) Level 10.2 10-20 mcg/mL Arterial Blood pH 7.43 7.35-7.45 Arterial Blood Partial Pressure CO2 43 35-46 mmHg Arterial Blood Partial Pressure O2 161 80-95 mm/Hg Arterial Blood HCO3 28 19-24 mmol/L Arterial Blood Oxygen Saturation 99.3 90-95 % Arterial Blood Base Excess 2.9 -9-1.8 mEq/L Arterial Blood Gas Delivery 14L O2 Carmelo Test POS POS Microbiology Results 10/03/17 Blood Culture, Received Pending 10/03/17 Blood Culture, Received Pending 10/03/17 Urine Culture, Received Pending Diagnostic Radiology ] SINGLE VIEW CHEST CLINICAL HISTORY: Generalized weakness. FINDINGS: An AP, portable, upright chest radiograph is compared to study dated 09/29/2017. Correlation is made with chest CT dated 01/03/2015. The examination is degraded by portable technique and patient rotation. A single lead cardiac pacemaker is unchanged in position. The heart is enlarged and there is atherosclerotic calcification of the thoracic aorta. There is pulmonary vascular congestion. Bilateral airspace opacities are noted and likely represent interstitial edema. There are low lung volumes with changes of chronic residual lung disease which are similar to previous. There are small pleural effusions. No pneumothorax is seen. The skeletal structures are osteopenic. The bony thorax is grossly intact. IMPRESSION: 1. Cardiomegaly and cardiac pacemaker. There is evidence of congestive failure. 2. Bilateral airspace opacities are identified and likely represent interstitial edema. Correlate clinically for evidence of superimposed pneumonia. 3. Small pleural effusions. 4. Changes of underlying interstitial lung disease are similar to previous. Electronically signed by: Rolando Causey M.D. 10/03/2017 2:59 PM Dictated Date/Time: 10/03/2017 2:57 PM The status of this report is Signed. Draft = Not yet reviewed or approved by Radiologist. Signed = Reviewed and approved by Radiologist. Patient Name: TRINIDAD BISHOP Unit Number: [id number] Dictated: 10/03/171737 Transcribed: 10/03/171737 EV Printed Date/Time: [~ rep prt dt]/[~ rep prt tm] [~ rep ct labl] - [~ rep ct ivnm] [facility] [place] [address] Dictated: 10/03/171737 Transcribed: 10/03/171737 EV Printed Date/Time: [~ rep prt dt]/[~ rep prt tm] [~ rep ct labl] - [~ rep ct ivnm] CT SCAN OF THE BRAIN WITHOUT IV CONTRAST CLINICAL HISTORY: Change in mental status. Recent intracranial hemorrhage. COMPARISON STUDY: CT scans of the brain dated 09/29/2017 and 07/12/2017. TECHNIQUE: Unenhanced axial CT scan of the brain is performed from the vertex to the skull base. FINDINGS: Brain parenchyma: There is a mixed attenuation subdural hematoma again seen along the left convexity. The volume of hyperdense/acute appearing blood appears diminished from 1129 and 17. This measures a maximum of 12 mm in thickness. This effaces the subjacent cortical sulci. No midline shift is seen. Subdural blood along the tentorium cerebelli has largely resolved. Chronic appearing low-attenuation subdural fluid is again seen along the midline falx and the right convexity. 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 There is only trace residual subarachnoid blood identified in the right parietal sulci on image #18. There are age-related involutional changes noting mild patchy subcortical and periventricular microangiopathic change. There is no evidence of acute territorial ischemia by CT criteria. Law-white matter is preserved. Ventricles, sulci, cisterns: Prominent secondary to involutional change. Trace blood in the right lateral ventricle is new from previous as seen on image #14. Intracranial vasculature: There is atherosclerotic calcification of the cavernous carotid and vertebral arteries. Calvarium: The skeletal structures are osteopenic. No depressed calvarial fracture is seen. A small sebaceous cyst is present within the suboccipital soft tissues. Sinuses and mastoids: There is evidence of previous paranasal sinus surgery. Mild mucosal thickening is seen within the maxillary antra. The remaining visualized paranasal sinuses are clear. There is a left mastoid effusion. The right mastoid air cells are well pneumatized. Cerumen is seen within the left external auditory canal. Orbits: The bony orbits are grossly intact. Bilateral ocular lens implants are noted. IMPRESSION: 1. No enlarging subdural hematoma is identified. There has been a modest decrease in the size of the mixed attenuation subdural hematoma along the left convexity as compared to 09/29/2017. The volume of hyperdense/acute appearing blood has decreased. This causes mild mass effect with effacement of the subjacent cortical sulci. No midline shift is seen. 2. Trace intraventricular blood is new from previous. 3. Subdural blood seen along the tentorium cerebelli has almost completely resolved. 4. There is only trace residual subarachnoid hemorrhage identified along the right posterior parietal cortical sulci. This is almost completely resolved. 5. 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 6. There is no evidence of acute territorial ischemia by CT criteria. Electronically signed by: Rolando Causey M.D. 10/03/2017 5:47 PM Dictated Date/Time: 10/03/2017 5:38 PM The status of this report is Signed. Draft = Not yet reviewed or approved by Radiologist. Signed = Reviewed and approved by Radiologist. <AttendingPhy></AttendingPhy> <FamilyPhy>Camden Dennis D.O.</FamilyPhy> < PrimaryPhy>Camden Dennis D.O.</PrimaryPhy> <UnitNumber>[id number]</ UnitNumber> <VisitNumber>[id number]</VisitNumber> <PatientName>TRINIDAD BISHOP</ PatientName> <DateOfBirth>1930</DateOfBirth> <Location>C.EDB</Location> < ServiceDate>10/03/17</ServiceDate> <MNE>ESINDI</MNE> <OrderingPhy>Kee Mendoza MD</OrderingPhy> <OrderingPhyMNE>f rep ord dr aranda</OrderingPhyMNE> < DictatingPhyMNE>f rep dict dr aranda</DictatingPhyMNE> <CCListMNE>f rep ct mne</ CCListMNE> <AdmittingPhyMNE>f pt admit dr aranda</AdmittingPhyMNE> <AttendingPhyMNE >f pt attend dr aranda</AttendingPhyMNE> <ConsultingPhyMNE>f pt consult dr aranda</ConsultingPhyMNE> <FamilyPhyMNE>f pt fam dr aranda</FamilyPhyMNE> <OtherPhyMNE>f pt other dr aranda</OtherPhyMNE> < PrimaryPhyMNE>f pt prim care dr aranda</PrimaryPhyMNE> <ReferringPhyMNE>f pt referring dr aranda</ReferringPhyMNE> Patient Name: TRINIDAD BISHOP Unit Number: [id number] Dictated: 10/03/171908 Transcribed: 10/03/171908 EV Printed Date/Time: [~ rep prt dt]/[~ rep prt tm] [~ rep ct labl] - [~ rep ct ivnm] [facility] [place] [address] Dictated: 10/03/171908 Transcribed: 10/03/17 EV Printed Date/Time: [~ rep prt dt]/[~ rep prt tm] [~ rep ct labl] - [~ rep ct ivnm] CT ANGIOGRAM OF THE CHEST CLINICAL HISTORY: Hypoxia. Change in mental status. COMPARISON STUDY: Chest CT dated 01/03/2015. Chest x-ray dated 10/03/2017. TECHNIQUE: Following the IV administration of 93 cc of Optiray 320, CT angiogram of the chest was performed from the upper abdomen to the thoracic inlet utilizing the pulmonary embolus protocol. Images are reviewed in the axial, sagittal, and coronal planes. 3-D MIPS images are created and assessed. IV contrast was administered without complication. A dose lowering technique was utilized adhering to the principles of ALARA. The examination is significantly degraded by motion artifact as well as by streak artifact from the arms which could not be elevated above the chest. CT DOSE: 732.92 mGy.cm FINDINGS: Thyroid: Atrophic. Thoracic aorta: There is atherosclerotic calcification of the thoracic aorta, which is normal in caliber and demonstrates standard 3-vessel arch anatomy. The thoracic aorta is not well opacified. Pulmonary vasculature: The pulmonary trunk is normal in caliber. There are no filling defects identified in main, lobar, or proximal segmental pulmonary branches to suggest pulmonary embolus. Evaluation of the peripheral branches is degraded by motion artifact. Heart: The heart is markedly enlarged and without pericardial effusion. The coronary arteries are densely calcified. A pacemaker is present in the left chest wall. Lungs and pleural spaces: Evaluation of lung parenchyma significantly compromised by motion artifact. Changes of chronic interstitial lung disease with subpleural reticulation are similar to prior examinations. Peribronchial thickening is identified. Groundglass opacities are present throughout both lungs. The trachea and central airways are grossly clear. There are trace pleural effusions. Mediastinum: There are numerous mildly enlarged mediastinal lymph nodes. A right paratracheal node on image #214 measures 1.3 cm in short axis. Gisela: Grossly clear. Axillae: There is no axillary lymphadenopathy. Upper abdomen: There is a small hiatal hernia. Partially visualized upper abdominal viscera is within otherwise grossly normal in appearance. Skeletal structures: The skeletal structures are osteopenic. Degenerative change is seen throughout the thoracic spine. No lytic or blastic bony lesions are seen. There are healed left-sided rib fractures. Chronic posttraumatic deformity and postoperative change is seen in the right humeral head. IMPRESSION: 1. Significantly streak and motion compromised examination. 2. There is no evidence of central pulmonary embolus in the main, lobar, or proximal segmental pulmonary arteries. 3. Marked cardiomegaly and cardiac pacemaker. Changes of congestive failure were better appreciated by x-ray. 4. Groundglass opacities are present throughout both lungs, and likely represent interstitial edema. Correlate clinically for evidence of a superimposed infectious/inflammatory pneumonitis. 5. There are trace pleural effusions. 6. Changes of chronic interstitial lung disease are grossly similar to prior examinations. 7. Mildly enlarged mediastinal lymph nodes are identified. Electronically signed by: Rolando Causey M.D. 10/03/2017 7:17 PM Dictated Date/Time: 10/03/2017 7:09 PM The status of this report is Signed. Draft = Not yet reviewed or approved by Radiologist. Signed = Reviewed and approved by Radiologist. <AttendingPhy></AttendingPhy> <FamilyPhy>Camden Dennis D.O.</FamilyPhy> < PrimaryPhy>Camden Dennis D.O.</PrimaryPhy> <UnitNumber>[id number]</ UnitNumber> <VisitNumber>[id number]</VisitNumber> <PatientName>TRINIDAD BISHOP T</ PatientName> <DateOfBirth>1930</DateOfBirth> <Location>C[facility]EDB</Location> < ServiceDate>10/03/17</ServiceDate> <MNE>BRITNI</MNE> <OrderingPhy>Kee Mendoza MD</OrderingPhy> <OrderingPhyMNE>f rep ord dr aranda</OrderingPhyMNE> < DictatingPhyMNE>f rep dict dr aranda</DictatingPhyMNE> <CCListMNE>f rep ct manoj</ CCListMNE> <AdmittingPhyMNE>f pt admit dr aranda</AdmittingPhyMNE> <AttendingPhyMNE >f pt attend dr aranda</AttendingPhyMNE> <ConsultingPhyMNE>f pt consult dr aranda</ConsultingPhyMNE> <FamilyPhyMNE>f pt fam dr aranda</FamilyPhyMNE> <OtherPhyMNE>f pt other dr aranda</OtherPhyMNE> < PrimaryPhyMNE>f pt prim care dr aranda</PrimaryPhyMNE> <ReferringPhyMNE>f pt referring dr aranda</ReferringPhyMNE> EKG EKG shows atrial fibrillation with rapid ventricular response at 135 bpm, left axis deviation, LVH, T-wave inversions laterally Impression Assessment and Plan Acute respiratory failure with hypoxia Atrial fibrillation with RVR/ interstitial edema suggestive of CHF/pneumonia-- The patient will be admitted to telemetry for serial cardiac enzymes, cardiac rhythm monitoring and a 2-D echocardiogram with Dopplers. Initial troponin is elevated at 2.17, likely due to supply demand mismatch. He is not a candidate for anticoagulation due to recent intracranial bleeds Increase metoprolol succinate 25 mg by mouth every morning to twice a day with dose now. Lopressor 5 mg IV every 4 hours when necessary heart rate greater than 110 Hold furosemide 40 mg by mouth daily He did receive in the ED diltiazem 10 mg IV followed by Lopressor 5 mg IV 3 per ED staff, with some improvement and rate control. Give furosemide 40 mg IV 1 tonight and every morning. Presently on 15 L nonrebreather mask, with reasonably good ABG, will titrate down the nasal cannula oxygen to keep pulse ox greater than or equal to 92%. Pneumonia-- May possibly be aspiration related Continue vancomycin IV and cefepime IV begun in the ED Recent intracranial bleeds-- Noted to be improved on CT in the ED today. He has a level V DO NOT RESUSCITATE. Continue Dilantin 100 mg by mouth 3 times a day. Hold prednisone 10 mg by mouth every morning Placed on hydrocortisone 100 mg IV every 8 hours. Hypokalemia-- Given 3 10 mEq K riders. Serial BMP and magnesium levels Hypothyroidism-- continue levothyroxine sodium at 125 g by mouth daily Level of Care Telemetry Advanced Directives Existing Advance Directive: Yes Existing Living Will: Yes Existing Power of Shadowgraph Scale Operator: Yes Resuscitation Status DO NOT RESUSCITATE VTE Prophylaxis VTE Risk Assessment Done? Y/N: Yes Risk Level: Moderate Given or contraindicated: SCD's, Contraindicated
[2017-10-03 23:22] VITALS: BP 136/77; PULSE 141; TEMP 36.3; O2SAT 100
[2017-10-04] VITALS (19 sets, daily range): BP systolic 117–149; BP diastolic 64–84; PULSE 93–124; TEMP 36.5–37.5; O2SAT 93–99
[2017-10-04] MEDS ORDERED: METOPROLOL TARTRATE 1 MG/ML VIAL IV. SCH
[2017-10-04] MEDS: METOPROLOL TARTRATE 1 MG/ML VIAL IV PRN ×3 (00:33→16:15)
[2017-10-04] MEDS: HYDROCORTISONE IV 100 MG in SYRINGE 0 ML IV SCH ×3 (00:34→16:16)
[2017-10-04] MEDS: POTASSIUM CHLR 10 MEQ / WTR 10 MEQ in PREMIXED WATER 100 ML IV SCH (00:42)
[2017-10-04] MEDS: CEFEPIME IV 1,000 MG in SYRINGE 0 ML IV SCH ×3 (00:58→16:27)
[2017-10-04] MEDS: ACETAMINOPHEN IV 100 ML IV PRN (00:59)
--- NOTE | 2017-10-04 01:26 | EMERGENCY ROOM VISIT NOTE ---
ED Visit Note Central line placement: Indication: The admitting physician asked for central line placement to administer additional medications. Location: Right femoral A timeout was taken and the correct patient was identified. A consent was performed with the family members for this patient. The right inguinal canal was prepped and draped in usual sterile fashion. Landmarks were identified. I donned a gown and sterile gloves for the procedure. A triple lumen catheter was placed in the usual Seldinger technique. There were no significant complications. All 3 lumens were able to draw blood and were flushed with saline. The catheter was sewn into place with Ethilon suture material. The catheter was covered with an OpSite dressing.
[2017-10-04] MEDS: IPRATROPIUM BROMIDE NEB SOLN 0.02% 2.5 ML VIAL INH SCH ×4 (02:04→19:19)
[2017-10-04] MEDS: LEVALBUTEROL 1.25MG/0.5ML NEB INH SCH ×4 (02:04→19:19)
[2017-10-04] MEDS ORDERED: HALOPERIDOL LACTATE 5 MG/ML 1 ML VIAL IM ONE (02:45)
[2017-10-04 04:35] LABS: HEMATOCRIT 38.3 % (42-52); MEAN CELL VOLUME 108.2 fL (80-100); MEAN CORPUSCULAR HGB CONC 34.2 g/dl (32-36); MEAN PLATELET VOLUME 9.9 fL (7.4-10.4); PLATELET COUNT 177 K/uL (130-400); RED BLOOD COUNT 3.54 M/uL (4.7-6.1); WHITE BLOOD COUNT 15.51 K/uL (4.8-10.8)
[2017-10-04 04:52] LABS: BUN/CREATININE RATIO 25.1 (10-20); CALCIUM 8.2 mg/dl (8.5-10.1); CREATININE 1.49 mg/dl (0.60-1.40); MAGNESIUM 2.1 mg/dl (1.8-2.4); POTASSIUM 3.3 mmol/L (3.5-5.1)
[2017-10-04 04:53] LABS: INR 1.1 (0.9-1.1); PARTIAL THROMBOPLASTIN RATIO 1.3; PROTHROMBIN TIME (PATIENT) 11.8 SECONDS (9.0-12.0)
[2017-10-04 05:00] LABS: BASO % 0.1 %; BASO ABS # 0.02 K/uL (0-0.2); COMPLETE YES; EOS % 0.1 %; IG% 0.5 %; LYMPH % 11.2 %; LYMPH ABS # 1.74 K/uL (1.2-3.4); MONO % 7.4 %; NEUT % 80.7 %
[2017-10-04 05:03] LABS: CKMB/CK RATIO 1.2 (0-3.0)
[2017-10-04] MEDS ORDERED: LEVOTHYROXINE 125 MCG TAB PO SCH (06:00)
[2017-10-04] MEDS ORDERED: POTASSIUM CHLR 20 MEQ / WTR 20 MEQ in PREMIXED WATER 100 ML IV STA (06:16)
[2017-10-04] MEDS ORDERED: MoRPHine SULFATE 4 MG/ML 1 ML CARP\\VIAL IV PRN (08:30)
[2017-10-04] MEDS: METOPROLOL SUCC 25MG EXT REL TAB PO SCH ×2 (09:00→20:43)
[2017-10-04] MEDS ORDERED: MoRPHine SULFATE 4 MG/ML 1 ML CARP\\VIAL IV ONE (09:00)
[2017-10-04] MEDS ORDERED: VANCOMYCIN INJ 1,250 MG in SODIUM CHLORIDE 0.9% 250ML 250 ML IV SCH (09:00)
[2017-10-04] MEDS ORDERED: FUROSEMIDE INJ 40 MG in SYRINGE 0 ML IV SCH (09:00)
[2017-10-04] MEDS ORDERED: METOPROLOL SUCC 25MG EXT REL TAB PO SCH (09:00)
[2017-10-04] MEDS ORDERED: PHENYTOIN IV 100 MG in SYRINGE 0 ML IV SCH (09:00)
--- NOTE | 2017-10-04 09:08 | Pharmacy Progress Note ---
Pharmacy Abx Dose Short Note Date of Service Oct 04, 2017. Assessment & Plan Assessment 86 year old male receiving Vancomycin for treatment of possible pneumonia. Day # 2 of antimicrobial therapy. Item Value Date Time Creatinine 1.12 mg/dl 10/03/17 1335 Creatinine 1.49 mg/dl H # 10/04/17 0403 Based on increase in Scr, will adjust vanco dosing for change in renal function. Current estimated Crcl=35mg/dl. Plan Vancomycin * Change to 1000 mg IV every 24 hours * Goal trough level for pneumonia : 15 to 20 mcg/mL * Trough level ordered for: 10/06 @0930, prior to steady state in order to ensure drug levels are within acceptable limits. Pharmacy will continue to follow and will adjust dose/frequency as necessary. Thank you.
[2017-10-04] MEDS: FAMOTIDINE IV INJ 20 MG in SYRINGE 3 ML IV SCH ×2 (09:17→20:50)
[2017-10-04] MEDS ORDERED: VANCOMYCIN INJ 1,000 MG in SODIUM CHLORIDE 0.9% 250ML 250 ML IV SCH (10:00)
[2017-10-04] MEDS: PHENYTOIN IV 100 MG in SYRINGE 0 ML IV SCH ×3 (10:49→20:42)
[2017-10-04] MEDS: SODIUM CHLOR 0.9% 10ML FLUSH 20 ML in SYRINGE 0 ML IV SCH ×3 (10:49→20:43)
[2017-10-04 13:05] LABS: CKMB/CK RATIO 1.3 (0-3.0)
[2017-10-04] MEDS: LEVOTHYROXINE SODIUM IV SCH (14:20)
[2017-10-04] MEDS: MoRPHine SULFATE 4 MG/ML 1 ML CARP\\VIAL IV PRN ×2 (15:23→20:28)
--- NOTE | 2017-10-04 17:44 | Family Medicine Progress Note ---
Progress Note Date of Service Oct 04, 2017. Subjective Pt evaluation today including: conversation w/ patient, conversation w/ family , chart review, review of studies The patient was seen and examined at bedside. Tele showed Afib in the 100s- 120s. Patient grunts to commands. Three family members are in the room. They report that the patient has actually improved since his admission. 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 Plan of care was described to the family and all questions were answered. Unable to obtain an ROS due to patient's baseline medical condition. Objective Physical Exam General Appearance: WD/WN, + mild distress Eyes: PERRL Neck: supple Respiratory/Chest: chest non-tender, lungs clear, no respiratory distress, no accessory muscle use Cardiovascular: no JVD, no murmur, + tachycardia, + irregularly irregular Abdomen: normal bowel sounds, non tender, soft Extremities: + pertinent finding (Unable to wiggle toes or squeeze fingers to command. ) Neurologic/Psychiatric: alert, + pertinent finding (Patient opens eyes and can make some verbal sounds to command - this was an improvement from previous day according to family - later in the day patient was unarousable, this is more concurrent with what hte family experienced bringing the patient on admission. ) Skin: no rash Assessment and Plan 86M with a PMHx of Pulmonary Fibrosis that was recently discharge from [facility] for a intracranial hemorrhage on 10/01/2017 - patient was at his baseline at this date - family denies any acute event (fall or trauma). Pt was brought in and was non responsive in the ER. AMS 2/2 Pneumonia vs Seizure vs Stroke I find it difficult to explain that the patient's current condition is from acute respiratory failure. Repeat CT Scan today showed no evidence of an increasing hemorrhage. MRI contraindicated due to Pacemaker. We would appreciate Neurology's input, we have ordered an EEG to determine possible seizure activity. Treatment for Resp, CV and Neuro conditions as below. A Fib with RVR - Hold the Lasix, despite the X-ray findings the patient does not appear to be fluid overloaded. - Elevated Troponins were likely demand ischemia. - We are holding fluids until the follow up X-ray tomorrow AM. - We will start a Dilt Drip without a bolus to get the heart rate under control. Consider restarting Metoprolol IV - Was on 25mg PO Metoprolol BID, now has Lopressor 5mg IV Q4H for HR>100. Pneumonia, 2/2 Aspiration? - Patient is wearing an oxymask, I believe this is a new oxygen requirement. - Admission X-rays were more suggestion of CHF than infiltrative process. - Follow up X-ray tomorrow AM. - Continue IV Vanc and Cefepime. Day #2 Recent intracranial bleeds - No evidence of worsening on CT Head x 2. - c/w Dilantin 100 mg IV TID. - Stress steroids, c/w hydrocortisone 100 mg IV every 8 hours. Hypothyroidism continue levothyroxine 62mcg IV DVT Proph - SCDS, not a candidate for AC due to recent IC bleeds. DNR Resident Physician Supervision Note: I was present with the resident during the history and exam. I discussed the case with the resident and agree with the findings and plan as documented in the note. Any exceptions or clarifications are listed here: Please see my separate note of the same date. Documented By: Camden Dennis Resident Involvement: Resident Care Provided Care Provided: Adult Hospital Medicine
[2017-10-04] MEDS ORDERED: NORMOSOL R 1,000 ML IV SCH (17:45)
--- NOTE | 2017-10-04 17:59 | DIAGNOSTIC IMAGING REPORT ---
CT HEAD WITHOUT CONTRAST (CT) CLINICAL HISTORY: Recent intracranial hemorrhage. Altered mental status. COMPARISON STUDY: 10/03/2017 TECHNIQUE: Axial CT of the brain is performed from the vertex to the skull base. IV contrast was not administered for this examination. A dose lowering technique was utilized adhering to the principles of ALARA. CT DOSE: 537.48 mGy.cm FINDINGS: There are persistent bilateral low density extra-axial fluid collections. Addition there is a hyperdense 31 x 9 mm left temporal hyperdense focus consistent with acute/subacute subdural hemorrhage. There is no evidence of intraparenchymal hemorrhage. There is slight increased density of the tentorium, suggesting tentorial subdural hemorrhage. This remain stable. There are patchy white matter hypodensities likely on a small vessel basis. A few tiny lacunar infarcts are again visualized. There is no evidence of pathologic ventricular dilatation. There is stable trace intraventricular hemorrhage layering within the occipital horns There are postsurgical changes involving the paranasal sinuses. There is minor maxillary and ethmoid sinus because of thickening. IMPRESSION: 1. No significant change in the size of the left convexity acute on chronic subdural hematoma. 2. Stable small tentorial subdural hematoma 3. Stable trace intraventricular hemorrhage. Electronically signed by: Paco Chatman M.D. 10/04/2017 5:58 PM Dictated Date/Time: 10/04/2017 5:52 PM
[2017-10-04] MEDS ORDERED: DILTIAZEM BOLUS / DRIP IV STA (20:09)
[2017-10-04] MEDS ORDERED: DILTIAZEM HCL INJ 125 MG in DEXTROSE 5% 100ML IV PRN (20:45)
--- NOTE | 2017-10-04 21:44 | Progress Note ---
Progress Note Date of Service Oct 04, 2017. Progress Note Resident Physician Supervision Note: I was present with the resident physician during the history and exam. I discussed the case with the resident and agree with the findings and plan as documented in his progress note of the same date. 86 y/o male whom I know well from the outpatient office. He has a history of a seizure disorder pulmonary fibrosis, and at one time about four or five years ago, was thought to be a hospice appropriate. However, he has done fairly well in terms of his lung disease - being fairly active - on daily prednisone. He was recently admitted to [facility] in transfer from [facility] after he suffered ( on anticoagulation for a-fib) a fall and subsequent subdural hematoma. He was subsequently discharged, returned home, and returned to the ED here in [place] with mental status change. Upon presentation, a repeat CT scan looked improved in terms of his IC bleed, and the mental status change was thought to be secondary to pneumonia. Upon my exam today, he is awake but does not respond to my voice. This afternoon , there is a more pronounced quivering of his lower jaw, and some trembling of his lower extremities. He will moves his legs and arms, but not upon command. On two occasions this afternoon, he had a more pronounced and sudden jerk, after which he seemed to settle for a short period of time, only to regress back into the trembling described above. IMPRESSION 1) Mental status change 2) Recent subdural bleed 3) A-fib with RVR, anticoagulation on hold due to recent subdural bleed 4) Pneumonia, perhaps aspiration I do not think the pneumonia is the primary cause of his mental status change. At least by imaging, his subdural bleed looks improved. He does have a history of seizures, and a borderline low Dilantin level upon admission. PLAN 1) Repeat CT head this evening. A pacemaker prohibits MRI. 2) IV dilantin 3) EEG 4) Neurology consult 5) Cardizem drip for better rate control; he cannot take PO at this point. 6) Hold AM Lasix dose 7) CXR in AM - evaluate fluid status and then make decision regarding IVF versus additional diuresis. 8) Stress dose steroids are appropriate, as he has been on prednisone in doses of 5mg to 20 mg over the last four years. Documented By: Camden Dennis
[2017-10-05] VITALS (21 sets, daily range): BP systolic 103–149; BP diastolic 61–87; PULSE 80–115; TEMP 36.9–37.7; O2SAT 95–100
[2017-10-05] MEDS: HYDROCORTISONE IV 100 MG in SYRINGE 0 ML IV SCH ×3 (00:09→16:47)
[2017-10-05] MEDS: CEFEPIME IV 1,000 MG in SYRINGE 0 ML IV SCH ×2 (00:12→07:46)
[2017-10-05] MEDS: ACETAMINOPHEN IV 100 ML IV PRN (00:47)
[2017-10-05] MEDS: IPRATROPIUM BROMIDE NEB SOLN 0.02% 2.5 ML VIAL INH SCH ×4 (01:32→19:16)
[2017-10-05] MEDS: LEVALBUTEROL 1.25MG/0.5ML NEB INH SCH ×4 (01:32→19:16)
[2017-10-05] MEDS: MoRPHine SULFATE 4 MG/ML 1 ML CARP\\VIAL IV PRN (02:29)
[2017-10-05] MEDS: DILTIAZEM HCL INJ 125 MG in DEXTROSE 5% 100ML 100 ML IV PRN ×2 (06:38→17:44)
--- NOTE | 2017-10-05 07:04 | Clinical Documentation Query ---
CLINICAL DOCUMENTATION QUERY 86 year old male who presents to the Emergency Room with complaints of worsening altered mental status. He has been found to have likely aspiration pneumonia 2/2 to recent hemorrhagic CVA. Query #1/3 In your clinical opinion is this patient being managed for: ( ) Metabolic encephalopathy in setting of aspiration pneumonia ( ) Not Agree ( ) Other explanation of clinical findings (Please Explain) ( x ) Unable to determine (Please Define) ( ) Need to Discuss The medical record reflects the following clinical findings, treatment, and risk factors. Clinical Indicators: As above. Aspiration pneumonia, acute hypoxic respiratory failure, and recent hemorrhagic CVA. Treatment: Head CT, IV Vancomycin, CXR, restraints Risk Factors: Age, pneumonia, recent CVA. Query #2/3 In your clinical opinion is this patient being managed for: ( x ) Myocardial infarction type 2 in setting of Afib RVR, hypoxic respiratory failure, and aspiration pneumonia ( ) Demand Ischemia ( ) Not Agree ( ) Other explanation of clinical findings (Please Explain) ( ) Unable to determine (Please Define) ( ) Need to Discuss The medical record reflects the following clinical findings, treatment, and risk factors. Clinical Indicators: Hypoxia 89%, tachycardia 145, +Troponin's 2.170, 1.730, 1.270, and question of CHF Treatment: serial troponin's, Risk Factors: Age, CAD, HTN, Query #3/3 In your clinical opinion is this patient being managed for: ( x ) SHANKAR on CKD II ( ) Not Agree ( ) Other explanation of clinical findings (Please Explain) ( ) Unable to determine (Please Define) ( ) Need to Discuss The medical record reflects the following clinical findings, treatment, and risk factors. Clinical Indicators: CRI by H&P. Documenting the stage of CKD will improve data integrity and will help clarify vague terms such as "renal insufficiency" or "chronic renal failure." However, BUN and Creatinine have risen to 39/1.49 and GFR has fallen to 41.9 from 29/1.12 and 59.2 respectively. Treatment: daily PRP's, I/O's, Machado, IV Lasix, Risk Factors: Age, IV diuretic therapy, home diuretic therapy. Please clarify and document your clinical opinion in the progress notes and discharge summary. Terms such as "probable", "suspected", "likely", "questionable", "possible", or "still to be ruled out" are acceptable. IF IN AGREEMENT, YOU MUST DOCUMENT ABOVE DIAGNOSTIC STATEMENT IN DAILY PROGRESS NOTES AND DISCHARGE SUMMARY. This document is not part of the patient's record. Thank You, Caleb Mcnulty RN [phone]
--- NOTE | 2017-10-05 07:08 | Clinical Documentation Query ---
CLINICAL DOCUMENTATION QUERY 86 year old male who presents to the Emergency Room with complaints of worsening altered mental status. He has been found to have likely aspiration pneumonia 2/2 to recent hemorrhagic CVA. Query #1/3 In your clinical opinion is this patient being managed for: ( ) Metabolic encephalopathy in setting of aspiration pneumonia ( ) Not Agree ( ) Other explanation of clinical findings (Please Explain) ( x ) Unable to determine (Please Define) - Seizure activity after a hemorrhagic CVA and subdural hematoma. ( ) Need to Discuss The medical record reflects the following clinical findings, treatment, and risk factors. Clinical Indicators: As above. Aspiration pneumonia, acute hypoxic respiratory failure, and recent hemorrhagic CVA. Treatment: Head CT, IV Vancomycin, CXR, restraints Risk Factors: Age, pneumonia, recent CVA. Query #2/3 In your clinical opinion is this patient being managed for: ( x ) Myocardial infarction type 2 in setting of Afib RVR, hypoxic respiratory failure, and aspiration pneumonia ( ) Demand Ischemia ( ) Not Agree ( ) Other explanation of clinical findings (Please Explain) ( ) Unable to determine (Please Define) ( ) Need to Discuss The medical record reflects the following clinical findings, treatment, and risk factors. Clinical Indicators: Hypoxia 89%, tachycardia 145, +Troponin's 2.170, 1.730, 1.270, and question of CHF Treatment: serial troponin's, Risk Factors: Age, CAD, HTN, Query #3/3 In your clinical opinion is this patient being managed for: ( x ) SHANKAR on CKD II ( ) Not Agree ( ) Other explanation of clinical findings (Please Explain) ( ) Unable to determine (Please Define) ( ) Need to Discuss The medical record reflects the following clinical findings, treatment, and risk factors. Clinical Indicators: CRI by H&P. Documenting the stage of CKD will improve data integrity and will help clarify vague terms such as "renal insufficiency" or "chronic renal failure." However, BUN and Creatinine have risen to 39/1.49 and GFR has fallen to 41.9 from 29/1.12 and 59.2 respectively. Treatment: daily PRP's, I/O's, Machado, IV Lasix, Risk Factors: Age, IV diuretic therapy, home diuretic therapy. Please clarify and document your clinical opinion in the progress notes and discharge summary. Terms such as "probable", "suspected", "likely", "questionable", "possible", or "still to be ruled out" are acceptable. IF IN AGREEMENT, YOU MUST DOCUMENT ABOVE DIAGNOSTIC STATEMENT IN DAILY PROGRESS NOTES AND DISCHARGE SUMMARY. This document is not part of the patient's record. Thank You, Caleb Mcnulty RN [phone]
--- NOTE | 2017-10-05 07:31 | Family Medicine Progress Note ---
Progress Note Date of Service Oct 05, 2017. Subjective Pt evaluation today including: conversation w/ patient, physical exam, chart review, lab review The patient was seen and examined at bedside. Patient continues to be unresponsive. Family is in and out of the room throughout the day. Plan of care was described to the patient and all questions were answered. ROS: Unable to asses due to patients baseline medical condition. Objective Physical Exam Notes: General Appearance: WD/WN, + mild distress Eyes: PERRL Neck: supple Respiratory/Chest: chest non-tender, lungs clear, no respiratory distress, no accessory muscle use Cardiovascular: no JVD, no murmur, + tachycardia, + irregularly irregular Abdomen: normal bowel sounds, non tender, soft Extremities: + pertinent finding (Unable to wiggle toes or squeeze fingers to command. ) Neurologic/Psychiatric: alert, + pertinent finding (There is spontaneous eye tracking, patient was able to follow a limited command to extend the foot (with my help), we also shook his left hand when trying to move his left foot - Patient is experiencing fast almost subclinical tremors. ) Skin: no rash Assessment and Plan 86M with a PMHx of Pulmonary Fibrosis that was recently discharge from [facility] for a intracranial hemorrhage on 10/01/2017 - patient was at his baseline at this date - family denies any acute event (fall or trauma). Pt was brought in and was non responsive in the ER. Patient is on Hospital Day #2 and continues to be encephalopathic from no clear etiology. Encephalopathy 2/2 Pneumonia vs Seizure vs Stroke I find it difficult to explain that the patient's current condition is from acute respiratory failure. Repeat CT Scan today showed no evidence of an increasing hemorrhage. MRI contraindicated due to Pacemaker. From a Neuro standpoint * we have stopped the Dilantin and loaded with Depakote and will continue to give 250mg IV q8h. * EEG was non specific. * Will check Vitamin B12 From a Cardiology standpoint, there is not much to do other than control the rate in an effort to improve heart function. * Repeat echocardiogram showed a severe decrease in LV function compared to echo in 2015. * Per cards we will add gentle fluids in an effort to improve the flow of the heart. Normosol 50mls/hr. * Continue to hold Lasix. * Diltiazem drip for RVR. From an infectious standpoint we will continue to treat the patient has having a bilateral pneumonia. * Continue IV Vanc and Cefepime, with new renal dosing. Day #3 A Fib with RVR * Hold the Lasix, despite the X-ray findings the patient does not appear to be fluid overloaded. * Continue with Diltiazem Drip. * Was on 25mg PO Metoprolol BID, now has Lopressor 5mg IV Q4H for HR>100. NSTEMI * Elevated Troponins were likely demand ischemia. * X-ray shows CHF vs Bilateral Pneumonia. * Not a candidate for ASA or any heparin whatsoever. Idiopathic Pulmonary Fibrosis * Patient is wearing an oxymask, this is a new oxygen requirement. Recent intracranial bleeds * No evidence of worsening on CT Head x 2. * Hold Dilantin and Continue with Depakote as above. * Stress steroids, c/w hydrocortisone 100 mg IV every 8 hours. Hypothyroidism * continue levothyroxine 62mcg IV DVT Proph * SCDS, not a candidate for AC due to recent IC bleeds. Dispo: Tele, continued complex medical issues, beginning to question whether this is a reversible process with a combination of CHF, subdural hematoma and longstanding pulmonary fibrosis. DNR Resident Physician Supervision Note: I was present with the resident physician during the history and exam. I discussed the case with the resident and agree with the findings and plan as documented in the note. I also discussed the case with both neurology and attendance officer. Plan going forward includes; 1) continue Depakote as noted above with Depakote level in the a.m. 2) trial of 1 mg Ativan now to see if it helps decrease myoclonic activity 3) add acyclovir 4) LP under fluoroscopy and a.m. 5) add gentle IV fluids as the patient has not taken any fluids by mouth for the last 48 hours Documented By: Camden Dennis Resident Involvement: Resident Care Provided Care Provided: Adult [facility]
[2017-10-05] MEDS: PHENYTOIN IV 100 MG in SYRINGE 0 ML IV SCH (07:42)
[2017-10-05] MEDS: METOPROLOL SUCC 25MG EXT REL TAB PO SCH ×2 (07:42→21:00)
[2017-10-05] MEDS: SODIUM CHLOR 0.9% 10ML FLUSH 20 ML in SYRINGE 0 ML IV SCH (07:43)
[2017-10-05] MEDS: FAMOTIDINE IV INJ 20 MG in SYRINGE 3 ML IV SCH ×2 (07:45→23:03)
[2017-10-05 07:51] LABS: BASO % 0.1 %; BASO ABS # 0.01 K/uL (0-0.2); COMPLETE YES; HEMATOCRIT 37.6 % (42-52); IG% 0.3 %; LYMPH % 13.3 %; LYMPH ABS # 1.94 K/uL (1.2-3.4); MEAN CORPUSCULAR HEMOGLOBIN 36.2 pg (25-34); MEAN CORPUSCULAR HGB CONC 33.5 g/dl (32-36); MEAN PLATELET VOLUME 9.9 fL (7.4-10.4); MONO % 6.9 %; NEUT % 79.4 %; PLATELET COUNT 213 K/uL (130-400); RED BLOOD COUNT 3.48 M/uL (4.7-6.1); WHITE BLOOD COUNT 14.64 K/uL (4.8-10.8)
[2017-10-05 07:59] LABS: PARTIAL THROMBOPLASTIN RATIO 1.1; PROTHROMBIN TIME (PATIENT) 10.9 SECONDS (9.0-12.0)
--- NOTE | 2017-10-05 08:11 | DIAGNOSTIC IMAGING REPORT ---
CHEST ONE VIEW PORTABLE CLINICAL HISTORY: Pulmonary infiltrates. COMPARISON STUDY: Chest radiograph and chest CT October 03, 2017. FINDINGS: A single lead left subclavian pacemaker is unchanged in position. Moderate cardiomegaly is noted. There is no pneumothorax. No pleural effusion is visualized. Interstitial thickening and bilateral airspace opacities have slightly increased. A few metallic densities projecting over the upper right hemithorax are unchanged. IMPRESSION: Mild increase in interstitial thickening and alveolar opacities within the lungs since prior exam. The findings favor pulmonary edema although bilateral pneumonia could appear similar. Electronically signed by: Tony Desir M.D. 10/05/2017 8:10 AM Dictated Date/Time: 10/05/2017 8:07 AM
[2017-10-05] MEDS: LEVOTHYROXINE SODIUM IV SCH (08:13)
[2017-10-05 08:17] LABS: BUN/CREATININE RATIO 30.3 (10-20); CALCIUM 8.6 mg/dl (8.5-10.1); CREATININE 1.9 mg/dl (0.60-1.40); MAGNESIUM 2.7 mg/dl (1.8-2.4); POTASSIUM 3.8 mmol/L (3.5-5.1)
[2017-10-05] MEDS ORDERED: VALPROATE SOD IV 1,000 MG in DEXTROSE 5% 50ML 50 ML IV ONE (10:00)
--- NOTE | 2017-10-05 10:24 | Neurology Consultation ---
Neurology Consultation Date of Consultation: Oct 05, 2017. Attending Physician: Camden Dennis D.O. Primary Care Physician: Camden Dennis D.O. Reason for Consultation: Patient has an 86-year-old, who was asked to see at the request of Dr. Dennis for neurologic consultation regarding acute confusion and seizure activity Patient is accompanied by 2 of his daughters at bedside. History of Present Illness Source: patient, family, caregiver, clinic records, hospital records This patient has a history of atrial fibrillation on Pradaxa. He has a history of coronary artery disease, hypertension, dyslipidemia, hypothyroidism and a significant for pulmonary fibrosis/COPD condition. Patient has a history of epilepsy and has been on Dilantin. At 100 milligrams 4 times a day his level was toxic. At twice a day was too low. Currently he is on 3 times a day and he has not had any overt seizures recently. The patient fell trying to take care of a bird feeder on September 27. He landed hard on as but and perhaps his head as well. He presented to the emergency room on September 29 with trouble breathing, continued severe low back pain and there was a bump on the back of his head. In the emergency room a CT scan of the head showed a 14 millimeter left subdural hematoma of significance with extension into the posterior fossa. There were no skull fractures and CT of the cervical spine was unremarkable. He was transferred from our emergency room to [facility] under the care of Neurosurgery. After reversing his anticoagulation he was observed did not undergo any neuro surgical procedure. He was discharged from [facility] on October 01. At that time he was walking and communicating fairly well. According to his daughters, overnight he had some trouble sleeping. Throughout the day of October 02 he could walk in talk fairly well but he became more confused by the end of the day. On October 03 he was very confused and had some shaking. He arrived to the emergency room on October 03 with elevated white count (chronically on steroids) elevated BUN and creatinine, elevated total bili, increased MCV, and decreased albumin. He had mild anemia. Dilantin level was 10.2. He has been receiving Dilantin 100 milligrams q.8 hours. There is a question of pneumonia and he was put on an antibiotic. He has had twitches and jerking of his limbs with no meaningful responsiveness or voice over the last 24-[address] scan of the head showed an improvement of the hematoma with residual left- sided blood only and no 4th ventricular or posterior fossa blood I reviewed the CT scan and films as well as his laboratory studies and his EEG tracing. Past Medical/Surgical History Medical Problems: (1) Altered mental status Status: Acute (2) Atrial fibrillation with RVR Status: Acute (3) Elevated troponin Status: Acute (4) Hypokalemia Status: Acute (5) Laceration of forearm, left Status: Acute (6) Other infective bursitis, right elbow Status: Acute (7) Pneumonia Status: Acute (8) Subdural hematoma Status: Acute Atrial fibrillation history Coronary disease Post pacemaker implantation several years ago History of depression stable on citalopram Benign prostatic hypertrophy Hypothyroidism controlled on levothyroxine Hypertension Dyslipidemia Significant pulmonary fibrosis and COPD Post her inguinal hernia repair, post rotator cuff repair, pulse sinus surgery Family History Patient's mother age 70 of a heart attack. The patient's father around age 70 of a heart attack as well Social History Patient apparently smoked cigarettes in his teens and early 20s and then quit. He has never had a history of significant alcohol consumption. 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 at age 63 Smoking Status: Former smoker Smokeless Tobacco Use: No Alcohol Use: none Drug Use: none Marital Status: Housing Status: lives with significant other Occupation Status: retired Allergies Coded Allergies: KRISTEN Inhibitors (Unverified Allergy, Unknown, HYPERKALEMIA, 10/03/17) Current Inpatient Medications Current Inpatient Medications Medications (Trade) Dose Ordered Sig/Chel Route Start Time Stop Time Status Last Admin Dose Admin Ioversol (Optiray 320) 100 ml UD PRN IV 10/03/17 18:15 10/07/17 18:14 Acetaminophen (Tylenol Tab) 650 mg Q4H PRN PO 10/03/17 20:15 11/02/17 20:14 Phenytoin Sodium (Dilantin Er Cap) 100 mg TID PO 10/03/17 21:00 11/02/17 20:59 Future Hold Hydrocortisone Sodium Succinate 100 mg/Syringe 2 ml @ 4 mls/min Q8H IV 10/04/17 00:00 11/02/17 20:14 10/05/17 07:43 4 MLS/MIN Ondansetron HCl (Zofran Inj) 4 mg Q6H PRN IV 10/03/17 20:15 11/02/17 20:14 Acetaminophen 100 ml @ 400 mls/hr Q8H PRN IV 10/03/17 20:15 18 20:14 10/05/17 00:47 400 MLS/HR Metoprolol Succinate (Toprol Xl Tab) 25 mg BID PO 10/03/17 21:00 11/03/17 08:59 Ipratropium [place] (Atrovent 0.02% 0.5MG/2.5ML Neb) 0.5 mg Q6R INH 10/04/17 03:00 11/03/17 02:59 10/05/17 06:19 0.5 MG Levalbuterol (Xopenex 1.25MG/ 0.5ML Neb) 1.25 mg Q6R INH 10/04/17 03:00 11/03/17 02:59 10/05/17 06:19 1.25 MG Vancomycin HCl (Consult) 1 ea UD PRN N/A 10/03/17 22:15 11/02/17 22:14 Famotidine 20 mg/ Syringe 5 ml @ 2.5 mls/min Q12 IV 10/03/17 23:00 11/02/17 22:59 10/05/17 07:45 2.5 MLS/MIN Cefepime HCl 1000 mg/Syringe 11 ml @ 5.5 mls/min Q8H IV 10/04/17 00:00 10/10/17 23:59 10/05/17 07:46 5.5 MLS/MIN Metoprolol Tartrate (Lopressor Iv) 5 mg Q4 PRN IV 10/04/17 00:00 11/03/17 00:00 10/04/17 16:15 5 MG Heparin Sodium (Porcine) (Heparin 10 Unit/ ml 5 ml Flush) 5 ml PRN PRN FLUSH 10/04/17 00:45 11/03/17 00:44 10/04/17 04:06 5 ML Levothyroxine Sodium 62 mcg/ Syringe 3.1 ml @ 2 mls/min DAILY@09 IV 10/04/17 09:00 11/03/17 08:59 10/05/17 08:13 2 MLS/MIN Phenytoin Sodium 100 mg/Syringe 2 ml @ 1 mls/min TID IV 10/04/17 09:00 11/03/17 08:59 10/05/17 07:42 1 MLS/MIN Sodium Chloride 20 ml/Syringe 20 ml @ 0 mls/min TID IV 10/04/17 09:00 11/03/17 08:59 10/05/17 07:43 20 MLS/MIN Vancomycin HCl 1000 mg/Sodium Chloride 270 ml @ 125 mls/hr Q24H IV 10/04/17 10:00 10/10/17 09:59 Future Hold 10/04/17 10:24 125 MLS/HR Morphine Sulfate (MoRPHine SULFATE INJ) 4 mg Q4 PRN IV 10/04/17 13:45 10/18/17 08:29 10/05/17 02:29 4 MG Diltiazem HCl 125 mg/Dextrose 125 ml @ 0 mls/hr Q0M PRN IV 10/05/17 06:15 11/04/17 06:14 10/05/17 06:38 5 MLS/HR Valproate Sodium 1000 mg/Dextrose 60 ml @ 55 mls/hr NOW IV 10/05/17 10:00 11/04/17 09:59 UNV Valproate Sodium 250 mg/Dextrose 52.5 ml @ 55 mls/hr Q8 IV 10/05/17 18:00 11/04/17 17:59 UNV Review of Systems I was unable to obtain any review of systems because the patient was unresponsive and unable to speak or follow commands. Physical Exam Vital Signs (Past 24 Hrs): Date Time Temp Pulse Resp B/P (MAP) Pulse Ox O2 Delivery O2 Flow Rate FiO2 10/05/17 09:37 96 138/82 (100) 96 Oxymask 7.0 10/05/17 08:00 97 Oxymask 6.0 10/05/17 07:12 37.1 109 22 135/80 (98) 97 Mask 7.0 10/05/17 06:58 115 139/77 (97) 10/05/17 06:48 108 131/87 (102) 10/05/17 06:39 102 138/83 (101) 10/05/17 06:21 106 20 96 Mask 7.0 10/05/17 04:27 37.1 90 22 124/72 (89) 97 Mask 7.0 10/05/17 03:53 Oxymask 6.0 10/05/17 03:53 93 118/66 (83) 10/05/17 02:22 84 103/61 (75) 10/05/17 01:32 91 22 96 Mask 6.0 10/05/17 00:41 111 106/74 (85) 10/05/17 00:32 103 120/69 (86) 10/05/17 00:20 96 119/69 (86) 10/05/17 00:07 96 122/72 (89) 97 Mask 6.0 10/05/17 00:05 Oxymask 6.0 10/04/17 23:08 37.4 100 20 124/67 (86) 97 Mask 7.0 10/04/17 21:59 94 122/68 (86) 97 Oxymask 10/04/17 21:50 95 125/69 (87) 98 Oxymask 7.0 10/04/17 21:40 96 126/71 (89) 99 Oxymask 7.0 10/04/17 21:32 93 117/66 (83) 99 Oxymask 7.0 10/04/17 21:17 94 121/70 (87) 98 Oxymask 6.0 10/04/17 20:00 98 Oxymask 10.0 10/04/17 19:41 37.0 110 24 122/66 (84) 98 Oxymask 10.0 10/04/17 19:20 102 26 97 Nasal Cannula 8.0 10/04/17 16:15 123 10/04/17 16:00 97 Nasal Cannula 10.0 10/04/17 15:34 37.1 123 19 129/71 (90) 96 Nasal Cannula 5.0 10/04/17 14:36 110 26 93 Nasal Cannula 6.0 10/04/17 12:00 96 Nasal Cannula 10.0 10/04/17 11:29 36.5 105 18 120/64 (82) 96 Oxymask 10.0 Patient is right-handed. The patient is lying in bed with his eyes open. He has spontaneous twitching and jerking movements of his limbs sometimes the right side sometimes bilateral legs. It involves the face arms and legs. There is no rhythm to the spontaneous frequent myoclonic jerking movements. His respiratory rate seems fairly regular. With shout and voice he occasionally makes eye contact with me for a 2nd or 2 but will not speak or follow commands. With deep pain stimulation he grimaces and becomes restless but does not produce vocalizations. The discs are sharp with positive venous pulsations. Pupils are 3mm bilaterally and reactive to light. Extraocular eye muscles are intact without nystagmus, spontaneously moving in all directions but also he has normal oculocephalics with passive movements of the head. Visual acuity and visual valencia cannot be ascertained. There are no deficits to sensation of the face bilaterally, as he reacts easily to touch and pain in all 3 distributions of the 5th cranial nerve. Corneal reflexes are positive bilaterally. Facial strength and symmetry seem normal bilaterally. He is known to be hard of hearing bilaterally. Palate moves well without asymmetry. There is normal sternocleidomastoid and trapezius strength bilaterally. Tongue is midline with reasonable strength bilaterally. Neck has a reasonable range of motion although there is some stiffness from osteoarthritis. This is not a meningeal rigidity. He has no cervical or cranial bruits. Heart is without murmur. Cervical palpation does not seem to invoke grimacing or pain response. Gait or stance cannot be tested. When we hold up his arms or legs he can maintain tone and keep his limb up in the air for a 2nd or 2. Motor strength is symmetrical in all 4 limbs both proximally distally as he resist quite well with manipulation and movement. The limbs have good tone without rigidity or spasticity, and there is no atrophy noted. Muscle bulk is normal, there is no tenderness, no myotonia noted to percussion, and no fasciculations seen. Sensory examination reveals the patient withdraws quickly to stimuli including light pain. With the pain he withdraws quickly and grimaces but it does not make any vocalizations. Reflexes are 1/4 in the biceps, triceps, brachioradialis, and quadriceps tendons bilaterally. Achilles tendon reflexes are absent bilaterally. Toes are downgoing with plantar stimulation bilaterally. Peripheral pulses are present and of normal quality distally in all four limbs. There is no peripheral edema noted. Laboratory Results Past 24 Hours: 10/05/17 07:33 Red Blood Count 3.48, Mean Corpuscular Volume 108.0, Mean Corpuscular Hemoglobin 36.2, Mean Corpuscular Hemoglobin Concent 33.5, Mean Platelet Volume 9.9, Neutrophils (%) (Auto) 79.4, Lymphocytes (%) (Auto) 13.3, Monocytes (%) ( Auto) 6.9, Eosinophils (%) (Auto) 0.0, Basophils (%) (Auto) 0.1, Neutrophils # ( Auto) 11.63, Lymphocytes # (Auto) 1.94, Monocytes # (Auto) 1.01, Eosinophils # ( Auto) 0.00, Basophils # (Auto) 0.01 10/05/17 07:33 Test 10/04/17 12:16 10/05/17 07:33 10/05/17 09:19 10/05/17 09:45 Total Creatine Kinase 132 U/L (39-308) Creatine Kinase MB 1.7 ng/ml (0.5-3.6) Creatine Kinase MB Ratio 1.3 (0-3.0) Troponin I 1.270 ng/ml (0-0.045) White Blood Count 14.64 K/uL (4.8-10.8) Red Blood Count 3.48 M/uL (4.7-6.1) Hemoglobin 12.6 g/dL (14.0-18.0) Hematocrit 37.6 % (42-52) Mean Corpuscular Volume 108.0 fL (80-100) Mean Corpuscular Hemoglobin 36.2 pg (25-34) Mean Corpuscular Hemoglobin Concent 33.5 g/dl (32-36) Platelet Count 213 K/uL (130-400) Mean Platelet Volume 9.9 fL (7.4-10.4) Neutrophils (%) (Auto) 79.4 % Lymphocytes (%) (Auto) 13.3 % Monocytes (%) (Auto) 6.9 % Eosinophils (%) (Auto) 0.0 % Basophils (%) (Auto) 0.1 % Neutrophils # (Auto) 11.63 K/uL (1.4-6.5) Lymphocytes # (Auto) 1.94 K/uL (1.2-3.4) Monocytes # (Auto) 1.01 K/uL (0.11-0.59) Eosinophils # (Auto) 0.00 K/uL (0-0.5) Basophils # (Auto) 0.01 K/uL (0-0.2) RDW Standard Deviation 52.1 fL (36.4-46.3) RDW Coefficient of Variation 13.3 % (11.5-14.5) Immature Granulocyte % (Auto) 0.3 % Immature Granulocyte # (Auto) 0.05 K/uL (0.00-0.02) Prothrombin Time 10.9 SECONDS (9.0-12.0) Prothromb Time International Ratio 1.0 (0.9-1.1) Activated Partial Thromboplast Time 29.1 SECONDS (21.0-31.0) Partial Thromboplastin Ratio 1.1 Anion Gap 10.0 mmol/L (3-11) Est Creatinine Clear Calc Drug Dose 25.2 ml/min Estimated GFR () 36.2 Estimated GFR (Non- 31.2 BUN/Creatinine Ratio 30.3 (10-20) Calcium Level 8.6 mg/dl (8.5-10.1) Magnesium Level 2.7 mg/dl (1.8-2.4) Total Bilirubin 0.9 mg/dl (0.2-1) Direct Bilirubin 0.5 mg/dl (0-0.2) Aspartate Amino Transf (AST/SGOT) 45 U/L (15-37) Alanine Aminotransferase (ALT/SGPT) 24 U/L (12-78) Alkaline Phosphatase 74 U/L (45-117) Total Protein 6.9 gm/dl (6.4-8.2) Albumin 2.5 gm/dl (3.4-5.0) Phenytoin (Dilantin) Level 7.8 mcg/mL (10-20) Imaging CT HEAD WITHOUT CONTRAST (CT) CLINICAL HISTORY: Recent intracranial hemorrhage. Altered mental status. COMPARISON STUDY: 10/03/2017 TECHNIQUE: Axial CT of the brain is performed from the vertex to the skull base. IV contrast was not administered for this examination. A dose lowering technique was utilized adhering to the principles of ALARA. CT DOSE: 537.48 mGy.cm FINDINGS: There are persistent bilateral low density extra-axial fluid collections. Addition there is a hyperdense 31 x 9 mm left temporal hyperdense focus consistent with acute/subacute subdural hemorrhage. There is no evidence of intraparenchymal hemorrhage. There is slight increased density of the tentorium, suggesting tentorial subdural hemorrhage. This remain stable. There are patchy white matter hypodensities likely on a small vessel basis. A few tiny lacunar infarcts are again visualized. There is no evidence of pathologic ventricular dilatation. There is stable trace intraventricular hemorrhage layering within the occipital horns There are postsurgical changes involving the paranasal sinuses. There is minor maxillary and ethmoid sinus because of thickening. IMPRESSION: 1. No significant change in the size of the left convexity acute on chronic subdural hematoma. 2. Stable small tentorial subdural hematoma 3. Stable trace intraventricular hemorrhage. Electronically signed by: Paco Chatman M.D. 10/04/2017 5:58 PM Impression 1. Acute encephalopathy. This has associated myoclonic jerks and/or myoclonic epilepsy. EEG was obtained this morning and showed a moderate to significant generalized encephalopathy with suspicious lesions for potentially epileptogenic activity. It was not true subclinical seizures or subclinical status There are no obvious etiologies of encephalopathy from a metabolic standpoint so far discovered. He has significant pulmonary issues and pneumonia might create encephalopathy due to oxygenation/ischemic issues He does not have any overt meningeal signs and so I do not believe that an acute meningitis/encephalitis is present. In all likelihood he is having subclinical seizure activity and myoclonic jerks creating the encephalopathy. Dilantin was subtherapeutic and may not be the best medication for myoclonic activity anyway 2. History of epilepsy on Dilantin. 3. History of depression, seemingly controlled on citalopram 4. Severe pulmonary fibrosis/COPD and possible pneumonia superimposed. Plan 1. 1 gram loading dose of IV Depakote followed by 250 milligrams every 8 hours following a.m. Depakote levels. Hopefully this will break the myoclonic cycle. If not, we could consider low doses of benzodiazepine but we may give him significant respiratory depression and move his pulmonary disease and the fact that he received morphine. 2. Discontinue Dilantin as we are replacing with Depakote. 3. We may consider lumbar puncture to evaluate for central nervous system inflammatory/infectious condition. 4. With anemia and elevated MCV, consider obtaining a B12 level. I spent a total of 100 minutes with this patient including review of records, discussion of his case with the patient and family at bedside, including reviewing imaging studies and labs as well as the EEG report, discussion of the case with Dr. Dennis including differential diagnosis and treatment options.
[2017-10-05] MEDS ORDERED: PERFLUTREN LIPID MICROSPHERE (DEFINITY) IV ONE (11:37)
[2017-10-05] MEDS ORDERED: CEFEPIME CONSULT ACTIVE PRN ×2 (12:00)
--- NOTE | 2017-10-05 12:26 | Pharmacy Progress Note ---
Pharmacy Abx Dose Short Note Date of Service Oct 05, 2017. Assessment & Plan Assessment 86 year old male receiving Vancomycin and cefepime for treatment of pneumonia. Spoke with Dr. Dennis to initiate renal dosing consult for cefepime. Day # 3 of antimicrobial therapy. Pt's renal function continues to decline based on increase in scr. Ordered a random vanc level prior to this morning's dose. Level was subtherapeutic and lower than expected. Item Value Date Time Random Vancomycin Level 12.8 mcg/ml 10/05/17 0919 Item Value Date Time Creatinine 1.12 mg/dl 10/03/17 1335 Creatinine 1.49 mg/dl H # 10/04/17 0403 Creatinine 1.90 mg/dl H # 10/05/17 0733 Plan Vancomycin * Random level of 12.8 mcg/mL is subtherapeutic. * Discontinued scheduled dosing * Ordered a one time dose of vancomycin 1gm today * Random vanc level ordered for tomorrow am with labs * Goal trough level for pneumonia 15-20 mcg/mL Cefepime * Adjusted 1 gm iv q 8 hours to 1 gm q 24 hours for crcl 10-29. Pharmacy will continue to follow and will adjust dose/frequency as necessary. Thank you.
[2017-10-05] MEDS ORDERED: VANCOMYCIN INJ 1,000 MG in SODIUM CHLORIDE 0.9% 250ML 250 ML IV ONE (12:30)
--- NOTE | 2017-10-05 12:31 | ECHOCARDIOGRAM REPORT ---
*NOTICE TO RECEIVING [employer] This information is strictly Confidential and protected under [place] law. [place] law prohibits you from making any further disclosure of this information unless further disclosure is expressly permitted by the written consent of the person to whom it pertains or is authorized by law. A general authorization for the release of medical or other information is not sufficient for this purpose. Hospital accepts no responsibility if the information is made available to any other person, INCLUDING THE PATIENT. Interpretation Summary * Name: TRINIDAD BISHOP Study Date: 10/05/2017 10:06 AM BP: 135/80 mmHg * Patient Location: C.2T\S\S239\S\2 HR: 109 * : 1930 (M/d/yyyy) Gender: Male Height: 66 in * Age: 86 yrs Ethnicity: CA Weight: 166 lb * Ordering Physician: Camden Dennis * Referring Physician: No Doctor, Assigned * Performed By: Abdelrahman Eduardo RCS * * Reason For Study: CHF * BSA: 1.8 m2 * -- Conclusions -- * 1. Mildly dilated left ventricle with moderately to severely reduced systolic function. EF 30-35%. Akinesis of the base to mid inferior wall and inferolateral wall. Otherwise, global hypokinesis, with relative sparing of the basal anterior and basal lateral segments. No left ventricular hypertrophy. * 2. The right ventricular systolic function is mildly reduced. * 3. Mild biatrial dilation. * 4. There is mild to moderate mitral regurgitation. * 5. There is mild to moderate tricuspid regurgitation. * 6. Mildly elevated right ventricular systolic pressure; 43 mmHg. * 7. Compared to prior study on 01/04/2015, LV systolic function is now moderately to severely reduced and wall motion abnormalities are now present as described. Procedure Details * A complete two-dimensional transthoracic echocardiogram was performed (2D, M-mode, Doppler and color flow Doppler). * A contrast injection of Definity was performed to improve assessment for apical thrombus. * Contrast was injected into an intravenous site in the right groin. * One vial of Definity ultrasound contrast was diluted in normal saline to a total volume of 10 ml. A total of '1' ml of solution was administered during imaging. * Lot # [id number] of Definity utilized for procedure. * Expiration date 1FEB19. * The attending nurse who injected the contrast agent was Shiela Grimm RN. Left Ventricle * Mildly dilated left ventricle with moderately to severely reduced systolic function. EF 30-35%. Akinesis of the base to mid inferior wall and inferolateral wall. Otherwise, global hypokinesis, with relative sparing of the basal anterior and basal lateral segments. No left ventricular hypertrophy. Right Ventricle * There is a pacemaker lead in the right ventricle. * The right ventricle is normal size. * The right ventricular systolic function is mildly reduced. * The right ventricular systolic function is reduced as assessed by tricuspid annular plane systolic excursion (TAPSE) (TAPSE <1.6 cm). Atria * The left atrium is mildly dilated. * The right atrium is mildly dilated. * There is no evidence of atrial septal defect, but resolution does not allow assessment for a patent foramen ovale. Mitral Valve * There is mild mitral annular calcification. * There is no mitral valve stenosis. * There is mild to moderate mitral regurgitation. Tricuspid Valve * The tricuspid valve is not well visualized, but is grossly normal. * There is no tricuspid stenosis. * There is mild to moderate tricuspid regurgitation. Aortic Valve * The aortic valve is trileaflet. * Aortic valve sclerosis mild, without significant aortic valvular stenosis. * No aortic regurgitation is present. Pulmonic Valve * The pulmonary valve is inadequately visualized, but the Doppler data is adequate for interpretation. * There is no pulmonic valvular stenosis. * Trace pulmonic valvular regurgitation. Great Vessels * The aortic root is normal size. * Aortic arch of normal dimension. Pericardium/Pleural * There is no pericardial effusion. Great Vessels * Normal inferior vena cava size and collapsability with sniff indicates a normal right atrial pressure of 3 mmHg MMode 2D Measurements and Calculations IVSd 1.0 cm IVSs 1.3 cm LVIDd 5.6 cm LVIDs 5.3 cm LVPWd 1.0 cm LVPWs 1.3 cm IVS/LVPW 1.0 FS 6.1 % EDV(Teich) 153.2 ml ESV(Teich) 132.5 ml EF(Teich) 13.5 % EDV(cubed) 174.9 ml ESV(cubed) 144.9 ml EF(cubed) 17.1 % % IVS thick 28.6 % % LVPW thick 28.1 % LV mass(C)d 221.1 grams LV mass(C)dI 119.6 grams/m\S\2 LV mass(C)s 280.3 grams LV mass(C)sI 151.7 grams/m\S\2 SV(Teich) 20.6 ml SI(Teich) 11.2 ml/m\S\2 SV(cubed) 30.0 ml SI(cubed) 16.2 ml/m\S\2 Ao root diam 3.5 cm Ao root area 9.9 cm\S\2 ACS 1.9 cm LA dimension 4.6 cm asc Aorta Diam 3.5 cm LA/Ao 1.3 LVAd ap4 34.4 cm\S\2 LVLd ap4 7.9 cm EDV(MOD-sp4) 123.5 ml EDV(sp4-el) 128.3 ml LVAs ap4 27.4 cm\S\2 LVLs ap4 7.3 cm ESV(MOD-sp4) 85.2 ml ESV(sp4-el) 87.7 ml EF(MOD-sp4) 31.0 % EF(sp4-el) 31.6 % LVAd ap2 37.8 cm\S\2 LVLd ap2 8.3 cm EDV(MOD-sp2) 143.7 ml EDV(sp2-el) 147.0 ml LVAs ap2 30.1 cm\S\2 LVLs ap2 7.6 cm ESV(MOD-sp2) 100.1 ml ESV(sp2-el) 100.6 ml EF(MOD-sp2) 30.4 % EF(sp2-el) 31.6 % LVLd %diff 6.4 % EDV(MOD-bp) 151.4 ml LVLs %diff 1.8 % ESV(MOD-bp) 85.3 ml EF(MOD-bp) 43.6 % SV(MOD-sp4) 38.3 ml SI(MOD-sp4) 20.7 ml/m\S\2 SV(MOD-sp2) 43.6 ml SI(MOD-sp2) 23.6 ml/m\S\2 SV(MOD-bp) 66.0 ml SI(MOD-bp) 35.7 ml/m\S\2 SV(sp4-el) 40.5 ml SI(sp4-el) 21.9 ml/m\S\2 SV(sp2-el) 46.4 ml SI(sp2-el) 25.1 ml/m\S\2 Doppler Measurements and Calculations MV E max maxx 87.9 cm/sec MV A max maxx 52.7 cm/sec MV E/A 1.7 MV P1/2t max maxx 105.9 cm/sec MV P1/2t 93.1 msec MVA(P1/2t) 2.4 cm\S\2 MV dec slope 333.1 cm/sec\S\2 MV dec time 0.17 sec Ao V2 max 129.1 cm/sec Ao max PG 6.7 mmHg Ao max PG (full) 1.9 mmHg LV V1 max PG 4.8 mmHg LV V1 max 109.3 cm/sec TV E max maxx 65.5 cm/sec PA V2 max 86.0 cm/sec PA max PG 3.0 mmHg TR max maxx 314.1 cm/sec RVSP(TR) 42.7 mmHg RAP systole 3.0 mmHg
--- NOTE | 2017-10-05 15:48 | CARDIOLOGY CONSULTATION ---
DATE OF CONSULTATION: 10/05/2017 TIME: 14:28 p.m. CONSULTING PHYSICIAN: Dr. Dennis. REASON FOR CONSULTATION: Atrial fibrillation and elevated troponins. PRIMARY LACING OPERATOR: Dr. Jason Robledo. HISTORY OF PRESENT ILLNESS: Mr. Roberson is a pleasant 86-year-old gentleman with a history significant single chamber pacemaker, sinus node dysfunction, atrial fibrillation, and CAD. He reportedly has a history of ischemic cardiomyopathy with improved LV systolic function over time. He also has pulmonary fibrosis. He was admitted to [facility] on 10/03/2017 with worsening mental status change. On September 29, he had a fall at home, which was unwitnessed. He refused hospitalization according to his daughter, who was present at the bedside and provided the medical history and history of present illness. She found him on the porch and he was sitting upright, but had a bruise on his head. After 2 days, he eventually was seen in the Emergency Department and transferred to [facility] due to a head CT scan, which demonstrated acute subdural hematoma with mild mass effect and effacement of the subjacent cortical sulci. There was also a small volume of subarachnoid hemorrhage identified along the right posterior parietal cortical sulci. He was discharged from [facility] on October 01 and he was able to walk and talk while returning home. Apparently that night, he had a rough night and the next day, he was not himself. They tried to give him his medications and he shuffled them in his mouth with his tongue. They stated that he did eat some food, but was not eating or drinking his usual amount and was also not doing so while at [facility]. Eventually, his mental status continued to decline and they brought him back to the hospital. She stated that if he was in his normal mental status, he would likely refuse to even come to the hospital as he has been somewhat resistant to ongoing medical care in the past. While here, he was found to have an elevated troponins upon presentation with troponin levels 2.17, which has since trended downward. He was given Lasix 40 mg IV x1 and his creatinine increased from 1.1 up to 1.9 today and his BUN increased from 29 to 58. He remains unresponsive verbally, but does lay in his bed with his eyes open. He has been evaluated by neurology, Dr. Ahmadi, who stated he has acute encephalopathy and that he in all likelihood may be experiencing subclinical seizure activity and myoclonic jerks creating the encephalopathy. He has given recommendations for further treatment. His daughter states that he has not been complaining of any chest pain, shortness of breath, syncope, near syncope, palpitations or edema. She states that he has been having difficulty walking as he had been shoveling his feet and stumbling even prior to his initial fall. She states that he has had another fall in the past with intracranial bleeding in 2016 as well. REVIEW OF SYSTEMS: As above and otherwise unobtainable due to the patient's mental status. PAST MEDICAL HISTORY: 1. Pulmonary fibrosis. 2. Reported CAD. 3. History of ischemic cardiomyopathy with improvement according to records. 4. Atrial fibrillation. 5. Pacemaker. 6. Dyslipidemia. 7. Hypertension. 8. Hypothyroidism. 9. Recurrent falls. 10. Mitral regurgitation. 11. Sinus node dysfunction. 12. Inguinal hernia repair. CURRENT MEDICATIONS: Include cefepime, diltiazem drip, hydrocortisone 100 mg IV q. 8 hours, levothyroxine 62 mcg IV daily, metoprolol succinate on hold due to being n.p.o., metoprolol tartrate 5 mg IV q. 4 hours p.r.n. heart rate greater than 110, valproate 250 mg IV q. 8 hours, and vancomycin IV. ALLERGIES: INCLUDE KRISTEN INHIBITORS. SOCIAL HISTORY: Denies tobacco or alcohol abuse according to his daughter. He has 3 daughters and 2 sons. One of his daughters is present at the bedside. FAMILY HISTORY: Parents in their 70s with heart disease. PHYSICAL EXAMINATION: VITAL SIGNS: Temperature 37.3 degrees, heart rate 100 beats per minute, respiratory rate 18, blood pressure 130/81 mmHg, and oxygen saturation 97% with OxyMask. Weight is 75.6 kg. I's and O's negative 1.6 liters. GENERAL: He appears in no acute distress, but he is unresponsive. HEENT: Anicteric sclerae. NECK: No appreciable JVD; however, difficult to exam. No bruits. Normal carotid upstrokes bilaterally. CARDIAC EXAMINATION: PMI was nondisplaced. There was no ventricular heave. Irregularly irregular, normal S1 and S2. There were no audible murmurs, rubs or gallops. LUNGS: Clear to auscultation bilaterally on anterior auscultation. ABDOMEN: Soft and nondistended. Normoactive bowel sounds. EXTREMITIES: No cyanosis or edema. 2+ radial pulses bilaterally. 2+ dorsalis pedis pulses bilaterally. PSYCHIATRIC: Affect cannot be evaluated due to mental status. ECG on 10/03/2017 at 13:17 demonstrated AFib with rapid ventricular response at 135 beats per minute. LVH with repolarization abnormality. Possible inferior infarct. Anterolateral T-wave inversion. Repeat ECG on 10/05/2017 at 07:09 a.m. demonstrated AFib with LVH. Significant T-wave inversion anteriorly. Inferior infarct. Echocardiogram personally reviewed, performed today. Mildly dilated left ventricle with moderately to severely reduced systolic function. EF 30%-35%. Akinesis of the base to mid inferior wall and inferolateral wall. Otherwise global hypokinesis with relative sparing of the basal anterior and basal lateral segments. Mild to moderate MR. Mild to moderate TR. Mild biatrial dilation. RV systolic function mildly reduced. RVSP 43 mmHg. Compared to 01/04/2015 echo, LV systolic function is now moderately to severely reduced with marked extensive wall motion abnormalities as described. LABORATORY DATA: Sodium 142, potassium 3.8, BUN 58, creatinine 1.9, and magnesium 2.7. Peak troponin 2.17 and since trended downward. WBC 14.6, hemoglobin 12.6, and platelets 213. INR is 1. CT scan of the chest on 10/03/2017 reported as motion artifact. No evidence of central pulmonary embolus in the main, lobar, or proximal segmental pulmonary arteries. Cardiomegaly with pacemaker. Ground-glass opacities throughout both lungs. Trace pleural effusions. Changes of chronic interstitial lung disease. Chest x-ray performed today, personally reviewed. Alveolar opacities bilaterally noted. Telemetry personally reviewed. Atrial fibrillation with rapid ventricular response. ASSESSMENT AND PLAN: 1. Non-ST elevation myocardial infarction: There is troponin elevation; however, he did not present with acute coronary syndrome and this would not account for his presentation with mental status change. Recommend conservative therapy. He is not a candidate for aspirin with recent subdural hematoma and subarachnoid hemorrhage. He is not a candidate for heparin. He is currently n.p.o. due to his mental status. Would resume beta anastacia when able and could consider statin therapy when able. 2. Cardiomyopathy: He has a history of ischemic cardiomyopathy, but now has extensive wall motion abnormalities and reduction in LV systolic function, which had previously improved according to reports. Possible etiologies of his reduced LV systolic function include tachycardia, acute illness, but also cannot rule out ischemic heart disease. Recommend rate control. Hopefully, his LV systolic function improves if his acute illness and heart rate overall also improved. When able to take p.o., would recommend metoprolol succinate. 3. Atrial fibrillation: Not an anticoagulation candidate as noted above. Agree with rate control strategy. He does not appear to be in heart failure and although, calcium channel anastacia may not be an idea with LV systolic function. If he should develop heart failure, it may be the best option right now to help control his heart rate. He also has metoprolol IV p.r.n. available. Would consider also some gentle rehydration, which may improve his heart rate. His labs became azotemic following diuresis and if he is intravascularly depleted, fluid may improve his heart rate. 4. Coronary artery disease: Reported coronary artery disease according to records. Medical management as above with limitation due to the inability to get antiplatelet therapy. Consider statin therapy as well when able to take n.p.o. 5. Pacemaker: Dr. Robledo can consider an interrogation if he feels as though it may help assess his overall heart rate trend to see if tachycardia is likely etiology for his cardiomyopathy. 6. Encephalopathy: As per primary service and neurology. 7. Disposition: The patient's care was discussed with his daughter at the bedside as well as Dr. Dennis, the primary hospitalist. Dr. Robledo will resume his cardiology care tomorrow. Highly complex medical issues. Thank you for allowing me to participate in the care of Mr. Roberson. Sincerely,
[2017-10-05] MEDS ORDERED: LORAZEPAM 2 MG/ML 1 ML VIAL ONE (17:01)
[2017-10-05] MEDS ORDERED: LORAZEPAM 2 MG/ML 1 ML VIAL IV STA (17:04)
[2017-10-05] MEDS: VALPROATE SOD IV 250 MG in DEXTROSE 5% 50ML 50 ML IV SCH (17:23)
--- NOTE | 2017-10-05 17:29 | EEG Procedure Note ---
EEG Procedure Note Date of Service Oct 05, 2017. Start / End Times Start Time: 8:24 AM End Time: 8:44 AM Referring Physician Angel Mehta History This is a 86-year-old male who presents in altered mental status with a history of epilepsy and multiple brain bleeds. EEG for further evaluation of possible seizure etiology for acute encephalopathy. Home Medication List Scheduled Citalopram (Citalopram Hydrobromide), 20 MG PO QAM Furosemide (Furosemide), 40 MG PO DAILY Levothyroxine Sodium (Levothyroxine Sodium), 125 MCG PO DAILYBB Lisinopril (Prinivil), 5 MG PO QAM Metoprolol Succ (Toprol Xl) (Toprol-Xl), 25 MG PO DAILY Phenytoin Sodium (Dilantin), 100 MG PO TID Prednisone Tab (Prednisone), 10 MG PO QAM Scheduled PRN Acetaminophen (Tylenol), 650 MG PO Q4 PRN for Fever Inpatient Medication List Current Inpatient Medications Medications (Trade) Dose Ordered Sig/Chel Route Start Time Stop Time Status Last Admin Dose Admin Ioversol (Optiray 320) 100 ml UD PRN IV 10/03/17 18:15 10/07/17 18:14 Acetaminophen (Tylenol Tab) 650 mg Q4H PRN PO 10/03/17 20:15 11/02/17 20:14 Hydrocortisone Sodium Succinate 100 mg/Syringe 2 ml @ 4 mls/min Q8H IV 10/04/17 00:00 11/02/17 20:14 10/05/17 16:47 4 MLS/MIN Ondansetron HCl (Zofran Inj) 4 mg Q6H PRN IV 10/03/17 20:15 11/02/17 20:14 Acetaminophen 100 ml @ 400 mls/hr Q8H PRN IV 10/03/17 20:15 11/02/17 20:14 10/05/17 00:47 400 MLS/HR Metoprolol Succinate (Toprol Xl Tab) 25 mg BID PO 10/03/17 21:00 11/03/17 08:59 Ipratropium [place] (Atrovent 0.02% 0.5MG/2.5ML Neb) 0.5 mg Q6R INH 10/04/17 03:00 11/03/17 02:59 10/05/17 14:30 0.5 MG Levalbuterol (Xopenex 1.25MG/ 0.5ML Neb) 1.25 mg Q6R INH 10/04/17 03:00 11/03/17 02:59 10/05/17 14:30 1.25 MG Vancomycin HCl (Consult) 1 ea UD PRN N/A 10/03/17 22:15 11/02/17 22:14 Famotidine 20 mg/ Syringe 5 ml @ 2.5 mls/min Q12 IV 10/03/17 23:00 11/02/17 22:59 10/05/17 07:45 2.5 MLS/MIN Metoprolol Tartrate (Lopressor Iv) 5 mg Q4 PRN IV 10/04/17 00:00 11/03/17 00:00 10/04/17 16:15 5 MG Heparin Sodium (Porcine) (Heparin 10 Unit/ ml 5 ml Flush) 5 ml PRN PRN FLUSH 10/04/17 00:45 11/03/17 00:44 10/04/17 04:06 5 ML Levothyroxine Sodium 62 mcg/ Syringe 3.1 ml @ 2 mls/min DAILY@09 IV 10/04/17 09:00 11/03/17 08:59 10/05/17 08:13 2 MLS/MIN Morphine Sulfate (MoRPHine SULFATE INJ) 4 mg Q4 PRN IV 10/04/17 13:45 10/18/17 08:29 10/05/17 02:29 4 MG Diltiazem HCl 125 mg/Dextrose 125 ml @ 0 mls/hr Q0M PRN IV 10/05/17 06:15 11/04/17 06:14 10/05/17 06:38 5 MLS/HR Valproate Sodium 250 mg/Dextrose 52.5 ml @ 55 mls/hr Q8@0200,1000,1800 IV 10/05/17 18:00 11/04/17 17:59 Cefepime HCl (Consult) 1 ea UD PRN N/A 10/05/17 12:00 11/04/17 11:59 Cefepime HCl 1000 mg/Syringe 11 ml @ 5.5 mls/min Q24H IV 10/06/17 08:00 10/10/17 23:59 Acyclovir Sodium 750 mg/Dextrose 265 ml @ 265 mls/hr Q8H IV 10/05/17 17:15 10/15/17 17:14 UNV Parenteral Electrolyte Solution 1,000 ml @ 50 mls/hr Q20H IV 10/05/17 17:15 11/04/17 17:14 UNV Description This is a 21 electrode EEG with a single channel dedicated to limited EKG. The electrodes were placed in accordance with the International 10-20 system. At the start of this recording the patient was in reported altered mental status. Background was poorly organized with no anterior to posterior gradient. Background was composed of a symmetric moderate amplitude predominantly 4-5 Hz delta/theta frequencies with rare intermittent faster frequencies. There was intermittent generalized sharply contoured delta waves that often had a bifrontal predominance, rarely with a triphasic morphology. Hyperventilation was not done. Photic stimulation at various frequencies did not produce any abnormalities. There was no state changes or sleep transients. Interpretation This is an abnormal routine EEG secondary to: 1) moderate background disorganization and slowing 2) intermittent generalized sharply contoured delta waves rarely with a triphasic morphology There was no electrographic seizures or clear epileptiform discharges. Clinical Correlation This EEG indicates a moderate encephalopathy of nonspecific etiology, but appears to be consistent with a metabolic encephalopathy. That being said, intermittent generalized sharply contoured delta waves can with time turn into discrete epileptiform discharges or seizures. Results were discussed with neurology consulting physician Dr. Ahmadi
[2017-10-05] MEDS: NORMOSOL R 1,000 ML IV SCH (17:42)
[2017-10-05] MEDS ORDERED: ACYCLOVIR CONSULT ACTIVE PRN (18:15)
[2017-10-05] MEDS ORDERED: VANCOMYCIN TROUGH ONE (20:30)
[2017-10-05] MEDS: ACYCLOVIR SOD INJ 750 MG in DEXTROSE 5% 250ML 250 ML IV SCH (21:09)
[2017-10-06] VITALS (10 sets, daily range): BP systolic 117–156; BP diastolic 58–87; PULSE 74–114; TEMP 36.5–37.9; O2SAT 95–99
[2017-10-06] MEDS: HYDROCORTISONE IV 100 MG in SYRINGE 0 ML IV SCH ×3 (00:16→15:16)
[2017-10-06] MEDS: LEVALBUTEROL 1.25MG/0.5ML NEB INH SCH ×4 (01:46→19:55)
[2017-10-06] MEDS: IPRATROPIUM BROMIDE NEB SOLN 0.02% 2.5 ML VIAL INH SCH ×4 (01:46→19:55)
[2017-10-06] MEDS: VALPROATE SOD IV 250 MG in DEXTROSE 5% 50ML 50 ML IV SCH ×3 (03:08→21:06)
[2017-10-06] MEDS: MoRPHine SULFATE 4 MG/ML 1 ML CARP\\VIAL IV PRN (04:23)
[2017-10-06 04:30] LABS: BASO % 0.1 %; BASO ABS # 0.01 K/uL (0-0.2); COMPLETE YES; HEMATOCRIT 35.8 % (42-52); IG% 0.3 %; LYMPH % 6.6 %; LYMPH ABS # 0.95 K/uL (1.2-3.4); MEAN CELL VOLUME 109.1 fL (80-100); PLATELET COUNT 203 K/uL (130-400); RED BLOOD COUNT 3.28 M/uL (4.7-6.1); WHITE BLOOD COUNT 14.39 K/uL (4.8-10.8)
[2017-10-06 04:46] LABS: INR 1.1 (0.9-1.1); PROTHROMBIN TIME (PATIENT) 11.2 SECONDS (9.0-12.0)
[2017-10-06 04:58] LABS: BUN/CREATININE RATIO 34.2 (10-20); C-REACTIVE PROTEIN 17.3 mg/dl (0-0.29); CALCIUM 7.9 mg/dl (8.5-10.1); CREATININE 1.59 mg/dl (0.60-1.40); POTASSIUM 3.6 mmol/L (3.5-5.1)
[2017-10-06 05:48] LABS: LYME DISEASE AB IGG NEG (NEG); LYME DISEASE AB IGM NEG (NEG)
[2017-10-06] MEDS: DILTIAZEM HCL INJ 125 MG in DEXTROSE 5% 100ML 100 ML IV PRN ×3 (06:02→21:08)
--- NOTE | 2017-10-06 07:21 | DIAGNOSTIC IMAGING REPORT ---
CHEST ONE VIEW PORTABLE CLINICAL HISTORY: Pulmonary infiltrates. COMPARISON STUDY: Chest CT October 03, 2017 and chest radiograph October 05, 2017. FINDINGS: Cardiomegaly is unchanged. There is no pneumothorax or pleural effusion. A single-lead left subclavian pacemaker is in place. Bilateral airspace opacities and interstitial thickening has slightly improved. IMPRESSION: Slight improvement in interstitial thickening and bilateral opacities. Pulmonary edema is favored although pneumonia could appear similar. Electronically signed by: Tony Desir M.D. 10/06/2017 7:20 AM Dictated Date/Time: 10/06/2017 7:18 AM
[2017-10-06] MEDS: ACYCLOVIR SOD INJ 750 MG in DEXTROSE 5% 250ML 250 ML IV SCH ×2 (07:43→19:50)
[2017-10-06] MEDS: METOPROLOL SUCC 25MG EXT REL TAB PO SCH (07:49)
[2017-10-06] MEDS ORDERED: CEFEPIME IV 1,000 MG in SYRINGE 0 ML IV SCH (08:00)
--- NOTE | 2017-10-06 08:32 | Pharmacy Progress Note ---
Pharmacy Abx Dose Short Note Date of Service Oct 06, 2017. Assessment & Plan Assessment 86 year old male receiving Vancomycin and Cefepime for treatment of pneumonia. Day # 4 of antimicrobial therapy. Item Value Date Time Random Vancomycin Level 16.4 mcg/ml 10/06/17 0414 Random vanc level is with in goal range of 15-20 mcg/mL. Will order one dose at 15mg/kg. Will continue to dose pt based on levels due to unstable creatinine. Item Value Date Time Creatinine 1.59 mg/dl H # 10/06/17 0414 Creatinine 1.90 mg/dl H # 10/05/17 0733 Creatinine 1.49 mg/dl H # 10/04/17 0403 Creatinine 1.12 mg/dl 10/03/17 1335 Blood cultures from 10/03 currently have NGTD. CSF pending. Urine culture: normal luli. WBC=14.4. Tmax=37.7. Crcl=30, will adjust cefepime dosing for crcl 30-60. Plan Vancomycin * 1.25gm IV x 1 * Random vanc level ordered for tomorrow am with labs. Cefepime * Change dose to 1gm IV q 12 hours. Pharmacy will continue to follow and will adjust dose/frequency as necessary. Thank you.
--- NOTE | 2017-10-06 08:53 | Neurology Progress Notes ---
Neurology Progress Note Date of Service Oct 06, 2017. Subjective Patient is still unresponsive. He has twitches and jerks occasionally, but not as much as yesterday. Nursing reports no new issues compared to yesterday. Depakote level this morning was 40. White count remains elevated to 14.3 (still on steroids) Ammonia level was 10 and Lyme antibody titer was negative. Chem profile is roughly the same as previous. CBC shows anemia. Chest x-ray is slightly improved compared to admission. Objective Date Time Temp Pulse Resp B/P (MAP) Pulse Ox O2 Delivery O2 Flow Rate FiO2 10/06/17 07:19 36.5 89 18 117/65 (82) 96 10/06/17 07:17 100 22 96 Mask 7.0 10/06/17 05:30 37.3 10/06/17 04:00 Oxymask 6.0 10/06/17 03:48 37.9 93 20 137/83 (101) 98 Oxymask 6.0 10/06/17 01:46 100 22 96 Mask 7.0 10/06/17 00:00 Oxymask 6.0 10/05/17 22:51 36.9 80 20 137/82 (100) 99 Oxymask 6.0 10/05/17 20:00 Oxymask 6.0 10/05/17 19:25 37.7 99 26 149/65 (93) 98 Oxymask 8.0 10/05/17 19:19 95 20 98 Mask 7.0 10/05/17 16:00 Oxymask 6.0 10/05/17 15:48 37.6 96 18 136/73 (94) 100 Oxymask 7.0 10/05/17 14:30 99 20 95 Mask 7.0 10/05/17 12:00 Oxymask 6.0 10/05/17 11:58 37.3 100 18 130/81 (97) 97 Mask 10/05/17 09:37 96 138/82 (100) 96 Oxymask 7.0 Last 24 Hours Test 10/05/17 09:19 10/06/17 04:14 10/06/17 08:00 Random Vancomycin Level 12.8 mcg/ml 16.4 mcg/ml Phenytoin (Dilantin) Level 7.8 mcg/mL White Blood Count 14.39 K/uL Red Blood Count 3.28 M/uL Hemoglobin 11.8 g/dL Hematocrit 35.8 % Mean Corpuscular Volume 109.1 fL Mean Corpuscular Hemoglobin 36.0 pg Mean Corpuscular Hemoglobin Concent 33.0 g/dl Platelet Count 203 K/uL Mean Platelet Volume 10.0 fL Neutrophils (%) (Auto) 87.0 % Lymphocytes (%) (Auto) 6.6 % Monocytes (%) (Auto) 6.0 % Eosinophils (%) (Auto) 0.0 % Basophils (%) (Auto) 0.1 % Neutrophils # (Auto) 12.52 K/uL Lymphocytes # (Auto) 0.95 K/uL Monocytes # (Auto) 0.87 K/uL Eosinophils # (Auto) 0.00 K/uL Basophils # (Auto) 0.01 K/uL RDW Standard Deviation 54.1 fL RDW Coefficient of Variation 13.4 % Immature Granulocyte % (Auto) 0.3 % Immature Granulocyte # (Auto) 0.04 K/uL Erythrocyte Sedimentation Rate 31 mm/hr Prothrombin Time 11.2 SECONDS Prothromb Time International Ratio 1.1 Activated Partial Thromboplast Time 26.0 SECONDS Partial Thromboplastin Ratio 1.0 Sodium Level 143 mmol/L Potassium Level 3.6 mmol/L Chloride Level 108 mmol/L Carbon Dioxide Level 30 mmol/L Anion Gap 5.0 mmol/L Blood Urea Nitrogen 54 mg/dl Creatinine 1.59 mg/dl Est Creatinine Clear Calc Drug Dose 30.1 ml/min Estimated GFR () 44.9 Estimated GFR (Non- 38.7 BUN/Creatinine Ratio 34.2 Random Glucose 155 mg/dl Calcium Level 7.9 mg/dl Magnesium Level 3.0 mg/dl Total Bilirubin 1.2 mg/dl Direct Bilirubin 0.7 mg/dl Aspartate Amino Transf (AST/SGOT) 70 U/L Alanine Aminotransferase (ALT/SGPT) 36 U/L Alkaline Phosphatase 71 U/L Ammonia < 10.0 umol/L C-Reactive Protein 17.30 mg/dl Total Protein 6.4 gm/dl Albumin 2.4 gm/dl Valproic Acid (Depakene) Level 40 mcg/ml Lyme Disease IgG Antibody NEG Lyme Disease IgM Antibody NEG Exam: he is lying in bed eyes closed with fairly regular breathing. He has some spontaneous movement of his limbs. He also has some occasional twitching/ myoclonic movements in his limbs mostly small movements in the small facial muscles and toes. With shout and clap, he will startle, open his eyes, and looked directly at me and then after a few seconds drift off. He will not follow one-step commands. Strength seems symmetrical in the limbs with normal tone. There is no facial droop. Pupils are 4 mm and reactive. Current Inpatient Medications Medications (Trade) Dose Ordered Sig/Chel Route Start Time Stop Time Status Last Admin Dose Admin Ioversol (Optiray 320) 100 ml UD PRN IV 10/03/17 18:15 10/07/17 18:14 Acetaminophen (Tylenol Tab) 650 mg Q4H PRN PO 10/03/17 20:15 11/02/17 20:14 Hydrocortisone Sodium Succinate 100 mg/Syringe 2 ml @ 4 mls/min Q8H IV 10/04/17 00:00 11/02/17 20:14 10/06/17 07:44 4 MLS/MIN Ondansetron HCl (Zofran Inj) 4 mg Q6H PRN IV 10/03/17 20:15 11/02/17 20:14 Acetaminophen 100 ml @ 400 mls/hr Q8H PRN IV 10/03/17 20:15 11/02/17 20:14 10/05/17 00:47 400 MLS/HR Metoprolol Succinate (Toprol Xl Tab) 25 mg BID PO 10/03/17 21:00 11/03/17 08:59 Ipratropium [place] (Atrovent 0.02% 0.5MG/2.5ML Neb) 0.5 mg Q6R INH 10/04/17 03:00 11/03/17 02:59 10/06/17 07:17 0.5 MG Levalbuterol (Xopenex 1.25MG/ 0.5ML Neb) 1.25 mg Q6R INH 10/04/17 03:00 11/03/17 02:59 10/06/17 07:17 1.25 MG Vancomycin HCl (Consult) 1 ea UD PRN N/A 10/03/17 22:15 11/02/17 22:14 Famotidine 20 mg/ Syringe 5 ml @ 2.5 mls/min Q12 IV 10/03/17 23:00 11/02/17 22:59 10/05/17 23:03 2.5 MLS/MIN Metoprolol Tartrate (Lopressor Iv) 5 mg Q4 PRN IV 10/04/17 00:00 11/03/17 00:00 10/04/17 16:15 5 MG Heparin Sodium (Porcine) (Heparin 10 Unit/ ml 5 ml Flush) 5 ml PRN PRN FLUSH 10/04/17 00:45 11/03/17 00:44 10/04/17 04:06 5 ML Levothyroxine Sodium 62 mcg/ Syringe 3.1 ml @ 2 mls/min DAILY@09 IV 10/04/17 09:00 11/03/17 08:59 10/05/17 08:13 2 MLS/MIN Morphine Sulfate (MoRPHine SULFATE INJ) 4 mg Q4 PRN IV 10/04/17 13:45 10/18/17 08:29 10/06/17 04:23 4 MG Diltiazem HCl 125 mg/Dextrose 125 ml @ 0 mls/hr Q0M PRN IV 10/05/17 06:15 11/04/17 06:14 10/06/17 06:02 15 MLS/HR Valproate Sodium 250 mg/Dextrose 52.5 ml @ 55 mls/hr Q8@0200,1000,1800 IV 10/05/17 18:00 11/04/17 17:59 10/06/17 03:08 55 MLS/HR Cefepime HCl (Consult) 1 ea UD PRN N/A 10/05/17 12:00 11/04/17 11:59 Cefepime HCl 1000 mg/Syringe 11 ml @ 5.5 mls/min Q24H IV 10/06/17 08:00 10/06/17 09:00 10/06/17 07:49 5.5 MLS/MIN Acyclovir Sodium 750 mg/Dextrose 265 ml @ 250 mls/hr Q12H IV 10/05/17 19:00 10/15/17 18:59 10/06/17 07:43 250 MLS/HR Parenteral Electrolyte Solution 1,000 ml @ 50 mls/hr Q20H IV 10/05/17 17:30 11/04/17 17:29 10/05/17 17:42 50 MLS/HR Acyclovir Sodium (Consult) 1 ea UD PRN N/A 10/05/17 18:15 11/04/17 18:14 Vancomycin HCl 1250 mg/Sodium Chloride 275 ml @ 125 mls/hr TODAY@0900 ONCE IV 10/06/17 09:00 10/06/17 11:11 Cefepime HCl 1000 mg/Syringe 11 ml @ 5.5 mls/min Q12H IV 10/06/17 20:00 10/10/17 23:59 Impression 1. Acute encephalopathy. 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 This has associated myoclonic jerks and/or myoclonic epilepsy. EEG 10-05 showed a moderate to significant generalized encephalopathy with suspicious lesions for potentially epileptogenic activity. It was not true subclinical seizures or subclinical status, but the patient is much improved with his myoclonic movements compared to yesterday. There are no obvious etiologies of encephalopathy from a toxic or metabolic standpoint. He has significant pulmonary issues and pneumonia might create encephalopathy due to oxygenation/ischemic issues He does not have any overt meningeal signs but I cannot exclude a central nervous system infection. He is currently being covered with broad-spectrum antibiotics and acyclovir In all likelihood, he is having subclinical seizure activity and myoclonic jerks creating the encephalopathy. 2. History of epilepsy on Dilantin. 3. History of depression, seemingly controlled on citalopram 4. Severe pulmonary fibrosis/COPD and possible pneumonia superimposed. Plan 1. Given an additional 1 gram loading dose of IV Depakote, now, followed by 250 milligrams every 6 hours Hopefully this will break the myoclonic cycle. 2. Check a trough Depakote level each morning 3. Lumbar puncture today to evaluate for central nervous system inflammatory/ infectious condition. I spent a total of 35 minutes with this patient, reviewing records, at bedside evaluating the patient, discussing his case with his daughter (at bedside), and discussing with his hospitalist care team.
[2017-10-06] MEDS ORDERED: VALPROATE SOD IV 1,000 MG in DEXTROSE 5% 50ML 50 ML IV ONE (09:00)
[2017-10-06] MEDS ORDERED: VANCOMYCIN INJ 1,250 MG in SODIUM CHLORIDE 0.9% 250ML 250 ML IV ONE (09:00)
[2017-10-06] MEDS: LEVOTHYROXINE SODIUM IV SCH (09:30)
[2017-10-06] MEDS: FAMOTIDINE IV INJ 20 MG in SYRINGE 3 ML IV SCH ×2 (09:30→20:06)
[2017-10-06] MEDS ORDERED: VANCOMYCIN TROUGH ONE (09:30)
--- NOTE | 2017-10-06 15:43 | Cardiology Follow-Up ---
Subjective Date of Service: Oct 06, 2017. Pt evaluation today including: conversation w/ patient, conversation w/ family , physical exam, lab review, review of studies, review of inpatient medication list History of Present Illness This is an 86-year-old gentleman who has a history of coronary artery disease, prior ischemic cardiomyopathy with resolution, mild valvular disease as well as a number of other medical problems. He presented on January 03, 2015 with diminished exercise tolerance and was noted to have sinus node dysfunction. He therefore underwent pacemaker implantation on March 05, 2015. At surgery he had an unusual finding of no detectable atrial electrical activity despite being in sinus rhythm, and no atrial pacing at full output in any of multiple locations tested. 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 He paces relatively infrequently. He did have atrial fibrillation identified in 2014 following pacemaker implantation, since there is no atrial lead we cannot determine the frequency or duration of it but it is evidently paroxysmal. At that time his heart rate was well-controlled and he was started on anticoagulation. He has had a number of falls, including one in June 2016 where he hit his head, apparently had a small intracerebral bleed and his Pradaxa was held and he was transferred to [facility]. He had a full evaluation there with no clear etiology. He was back on Pradaxa. He fell at home on 09/29/2017, refused hospitalization however several days later he was seen in the emergency room which demonstrated an acute subdural hematoma and he was transferred to [facility]. He was discharged from there on 10/01/2017 to return home with instructions not to start his Pradaxa until 10/14/2017. His mental status continued to decline and he was brought to the emergency room on 10/04/2017. Here he was observed to have an elevated troponin, to be minimally responsive and to be in congestive heart failure and atrial fibrillation. At the time of my visit his hands are bandaged and he is moving but does not respond appropriately to verbal stimuli. He is not talkative. Social History Smoking Status: Never Smoker History of Alcohol Use: No Review of Systems He cannot provide a meaningful review of systems Medications Cardiovascular: Item Value Date Time Diltiazem HCl 125 125 ml @ 0 mls/hr 10/05/17 0615 mg/Dextrose .Q0M PRN/IV 10/06/17 1304 Metoprolol 5 mg 12/4/17 0000 Tartrate Q4 PRN/IV 10/04/17 1615 (Lopressor Iv) Metoprolol 25 mg 10/03/17 2100 Succinate BID/PO (Toprol Xl Tab) Objective Vital Signs Past 12 Hours Date Time Temp Pulse Resp B/P (MAP) Pulse Ox O2 Delivery O2 Flow Rate FiO2 10/06/17 07:19 36.5 89 18 117/65 (82) 96 10/06/17 07:17 100 22 96 Mask 7.0 10/06/17 05:30 37.3 10/06/17 04:00 Oxymask 6.0 10/06/17 03:48 37.9 93 20 137/83 (101) 98 Oxymask 6.0 10/06/17 01:46 100 22 96 Mask 7.0 10/06/17 00:00 Oxymask 6.0 Last Recorded Weight-Kilograms: 76.500 Physical Exam Constitutional: Level of Distress: acutely ill Lungs: Auscultation: breath sounds normal Cardiovascular: Heart Auscultation: tachycardia, irregular rate rhythm Extremities: pertinent finding (both hands are bandage to avoid injury I believe) Data Laboratory Results: Last 24 Hours Test 10/06/17 04:14 10/06/17 08:00 White Blood Count 14.39 K/uL Red Blood Count 3.28 M/uL Hemoglobin 11.8 g/dL Hematocrit 35.8 % Mean Corpuscular Volume 109.1 fL Mean Corpuscular Hemoglobin 36.0 pg Mean Corpuscular Hemoglobin Concent 33.0 g/dl Platelet Count 203 K/uL Mean Platelet Volume 10.0 fL Neutrophils (%) (Auto) 87.0 % Lymphocytes (%) (Auto) 6.6 % Monocytes (%) (Auto) 6.0 % Eosinophils (%) (Auto) 0.0 % Basophils (%) (Auto) 0.1 % Neutrophils # (Auto) 12.52 K/uL Lymphocytes # (Auto) 0.95 K/uL Monocytes # (Auto) 0.87 K/uL Eosinophils # (Auto) 0.00 K/uL Basophils # (Auto) 0.01 K/uL RDW Standard Deviation 54.1 fL RDW Coefficient of Variation 13.4 % Immature Granulocyte % (Auto) 0.3 % Immature Granulocyte # (Auto) 0.04 K/uL Erythrocyte Sedimentation Rate 31 mm/hr Prothrombin Time 11.2 SECONDS Prothromb Time International Ratio 1.1 Activated Partial Thromboplast Time 26.0 SECONDS Partial Thromboplastin Ratio 1.0 Sodium Level 143 mmol/L Potassium Level 3.6 mmol/L Chloride Level 108 mmol/L Carbon Dioxide Level 30 mmol/L Anion Gap 5.0 mmol/L Blood Urea Nitrogen 54 mg/dl Creatinine 1.59 mg/dl Est Creatinine Clear Calc Drug Dose 30.1 ml/min Estimated GFR () 44.9 Estimated GFR (Non- 38.7 BUN/Creatinine Ratio 34.2 Random Glucose 155 mg/dl Calcium Level 7.9 mg/dl Magnesium Level 3.0 mg/dl Total Bilirubin 1.2 mg/dl Direct Bilirubin 0.7 mg/dl Aspartate Amino Transf (AST/SGOT) 70 U/L Alanine Aminotransferase (ALT/SGPT) 36 U/L Alkaline Phosphatase 71 U/L Ammonia < 10.0 umol/L C-Reactive Protein 17.30 mg/dl Total Protein 6.4 gm/dl Albumin 2.4 gm/dl Vitamin B12 Level 257 pg/mL Folate 8.76 ng/mL Random Vancomycin Level 16.4 mcg/ml Valproic Acid (Depakene) Level 40 mcg/ml Lyme Disease IgG Antibody NEG Lyme Disease IgM Antibody NEG Imaging: His admission chest x-ray suggests congestive heart failure EKG: His electrocardiogram on arrival shows atrial fibrillation heart rate of 135 bpm. No acute changes. Telemetry reviewed: Atrial fibrillation throughout, the heart rate is averaging over 100 bpm, better controlled than on initial presentation. Pacemaker interrogation: The device is functioning well, he does not have an atrial lead so the only way we can tell when this arrhythmia started is to look at rapid ventricular rates. He had a prolonged episode of a rapid ventricular rate starting 10/03/2017, so I suspect his arrhythmia started on that day and has continued. Assessment and Plan #1. Atrial fibrillation: Although he has a history of atrial fibrillation ( which was identified during his hospitalization after his pacemaker was implanted) for the most part he is in sinus rhythm when he has been monitored or had electrocardiograms done. We don't know the frequency or duration of his arrhythmia in general but it has not seemed to be much of a problem in the past. This episode likely started 10/03/2017 and has continued, based on high ventricular rates in his pacemaker memory. Without an atrial lead we can't be certain but that is very likely. He was on Pradaxa in the past, his home medications do not list it. At this point we need better rate control (he is on IV diltiazem and his chart lists oral beta blockade by don't think he is taking oral medications). I'm going to start digoxin and intravenous metoprolol. We need to think about anticoagulation, I don't know why anticoagulation was held prior to his admission. #2. Congestive heart failure: I am not sure why he is in congestive heart failure, since the arrhythmia likely started very shortly before his presentation and he probably wasn't eating or drinking much I don't know that the arrhythmia caused it although it is possible. It is also possible he developed congestive heart failure and then went into atrial fibrillation. Either way he may need diuresis. #3. Elevated troponin: Although I cannot exclude an ischemic event, his troponin trend suggests demand ischemia (it is a decreasing pattern) likely due to his rapid heart rate in atrial fibrillation (which probably started shortly before admission) and his congestive heart failure. I would not pursue further evaluation at this time. #4. Pacemaker: His pacemaker is functioning well, with appropriate infrequent pacing. Thank you for allowing me to participate in his care.
--- NOTE | 2017-10-06 15:57 | Family Medicine Progress Note ---
Progress Note Date of Service Oct 06, 2017. Subjective Pt evaluation today including: conversation w/ family, physical exam, chart review, lab review The patient was seen and examined at bedside. Per Venkat Garcia's note patient is in sinus rhythm on monitor with a rate in the 100s. Patient is minimally responsive. Patient continues to be in soft restraints. Plan of care was described to the family and all questions were answered. ROS: Unable to asses due to patients baseline medical condition. Objective Physical Exam Notes: General Appearance: WD/WN, non responsive, patient is looking around the room, is spontaneously moving his upper and lower extremities, not talking, able to close his mouth to a mouth swab but not on command, patient has minimal eye tracking. Patient does increase his motion in response to different persons in the room. Neck: supple Respiratory/Chest: chest non-tender, lungs clear, no respiratory distress, no accessory muscle use Cardiovascular: no JVD, no murmur, + tachycardia, + irregularly irregular Abdomen: normal bowel sounds, non tender, soft, no hepatosplenomegaly appreciated. Extremities: + pertinent finding (Unable to wiggle toes or squeeze fingers to command.) Neurologic/Psychiatric: alert, + pertinent finding (Does not respond to commands at all today including movies his upper or lower extremities, blinding , opening or closing mouth or turning his head. There is spontaneous myoclonic jerking of the upper and lower extremities). Skin: no rash Assessment and Plan 86M with a PMHx of Pulmonary Fibrosis that was recently discharge from [facility] for a intracranial hemorrhage on 10/01/2017 - patient was at his baseline on his discharge - family denies any acute event (fall or trauma) after discharge. Pt was brought in and was non responsive in the ER. Patient continues to be encephalopathic. At present we believe he has neurological sequalae from his previous intracranial bleeds. LP is contraindicated due to recent subdural hematoma. Encephalopathy 2/2 Pneumonia vs Seizure vs Stroke This is unlikely from acute respiratory failure considering he has good saturations on oxygen and his ABG was relatively normal. Repeat Head CT Scan today showed no evidence of an increasing hemorrhage. MRI contraindicated due to Pacemaker. From a Neuro standpoint * Pt continues to require soft restraints for pulling at his IV lines. * EEG was non specific. * RE-leaded with 1g of Depakote and will continue to give 250mg IV q8h. Levels today were subtherapeutic. * B12 Low Normal, B1 pending, will supplement with a single B12 shot and give IV Thiamine. * We are unable to do an LP because of recent subdural hematoma. * We will continue empiric Acyclovir for possible herpetic encephalitis. Day # 1. From a Cardiology standpoint, there is not much to do other than control the rate in an effort to improve heart function. * Echo showed a severe decrease in LV function compared to echo in 2015, EF 30- 35%. * Per cards we will add gentle fluids in an effort to improve the flow of the heart. * We will increase Normosol to 80mls/hr. * X-ray today showed: Slight improvement in interstitial thickening and bilateral opacities. Pulmonary edema is favored although pneumonia could appear similar. * Continue to hold Lasix. * We would appreciate Cardiology's input for further management, for example, IV digoxin or IV metoprolol for further rate control. AC is contraindicated due to recent hemorrhagic intracranial bleed. From an infectious standpoint we will continue to treat the patient has having a bilateral pneumonia. * Continue IV Vanc and Cefepime, with new renal dosing. Day #4 A Fib with RVR * Hold the Lasix, despite the X-ray findings the patient does not appear to be fluid overloaded. * Was on 25mg PO Metoprolol BID, now has Lopressor 5mg IV Q4H for HR>100. * Defer to management of HR to cardiology. * Patient is presently on a Diltiazem Drip. Elevated Troponins * Elevated Troponins were likely demand ischemia. * Not a candidate for ASA or any heparin whatsoever due to IC bleed. * A Fib management as above. * Echo results as above. Idiopathic Pulmonary Fibrosis * Patient is wearing an oxymask, correction from previous note, patient was on oxygen at home. Recent intracranial bleeds * No evidence of worsening on CT Head x 2. * Hold Dilantin and Continue with Depakote as above. * Stress steroids, c/w hydrocortisone 100 mg IV every 8 hours. 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 Hypothyroidism * Continue levothyroxine 62mcg IV Diet: * Pt has now not eaten in 4 days, we will consider TPN tomorrow or an NG tube. * We will check phosphate and Mag tomorrow in the AM. DVT Proph * SCDS, not a candidate for AC due to recent IC bleeds. Dispo: Tele, continued complex medical issues, still unclear if baseline medical condition is reversible. DNR Resident Physician Supervision Note: I was present with the resident physician during the history and exam. I discussed the case with the resident and agree with the findings and plan as documented in the note. I also discussed the case with neurology and pet adoption counselor. Overall, some subtle signs of improvement. This afternoon, the patient's facial fasciculations seemed to be less, and turned his head and eyes appropriately to voice. After discussion with radiology, a lumbar puncture was thought to be a relative contraindication given his recent subdural bleed. At this point, since the patient is artery on both antibiotics and antiviral medications, results of the LP would likely not change clinical management at this point in time. Appreciate cardiology recommendations for improved rate control, digoxin and IV metoprolol. Anticoagulation must remain on hold given the patient's recent intracranial bleed. The patient has not eaten in 4 days; I am hopeful that his mentation will continue to improve and this will not be an issue. However, I did approach the discussion with the family today regarding nourishment. Check phosphorus level , supplement thiamine, as patient would be at risk for refeeding syndrome. Documented By: Camden Dennis Resident Involvement: Resident Care Provided Care Provided: Adult [facility]
[2017-10-06] MEDS ORDERED: CYANOCOBALAMIN 1000 MCG/ML VIAL IM ONE (16:00)
[2017-10-06] MEDS ORDERED: THIAMINE HCL 100 MG/ML 2 ML VIAL IM ONE (16:15)
[2017-10-06] MEDS: NORMOSOL R 1,000 ML IV SCH (16:25)
[2017-10-06] MEDS ORDERED: DIGOXIN IV 250 MCG in SYRINGE 9 ML IV ONE ×2 (17:15→19:00)
[2017-10-06] MEDS: METOPROLOL TARTRATE 1 MG/ML VIAL IV. SCH (17:51)
[2017-10-06] MEDS ORDERED: DIGOXIN IV 250 MCG in SYRINGE 9 ML IV SCH (19:00)
[2017-10-06] MEDS: CEFEPIME IV 1,000 MG in SYRINGE 0 ML IV SCH (20:06)
[2017-10-07] VITALS (13 sets, daily range): BP systolic 148–167; BP diastolic 70–88; PULSE 71–109; TEMP 36.4–37.6; O2SAT 88–99
[2017-10-07] MEDS: METOPROLOL TARTRATE 1 MG/ML VIAL IV. SCH ×4 (00:11→17:57)
[2017-10-07] MEDS: MoRPHine SULFATE 4 MG/ML 1 ML CARP\\VIAL IV PRN ×3 (00:12→08:30)
[2017-10-07] MEDS: HYDROCORTISONE IV 100 MG in SYRINGE 0 ML IV SCH ×3 (00:40→16:04)
[2017-10-07] MEDS: LEVALBUTEROL 1.25MG/0.5ML NEB INH SCH ×4 (01:53→20:20)
[2017-10-07] MEDS: IPRATROPIUM BROMIDE NEB SOLN 0.02% 2.5 ML VIAL INH SCH ×4 (01:53→20:20)
[2017-10-07 02:00] LABS: RAPID PLASMA REAGIN NONREACTIVE (NONREACT)
[2017-10-07] MEDS: VALPROATE SOD IV 250 MG in DEXTROSE 5% 50ML 50 ML IV SCH ×4 (03:10→20:41)
[2017-10-07 05:16] LABS: COMPLETE YES; HEMATOCRIT 35.8 % (42-52); IG% 0.6 %; LYMPH ABS # 0.71 K/uL (1.2-3.4); MEAN CELL VOLUME 108.2 fL (80-100); MEAN CORPUSCULAR HGB CONC 33.2 g/dl (32-36); MEAN PLATELET VOLUME 10.1 fL (7.4-10.4); MONO % 6.1 %; NEUT % 87.3 %; PLATELET COUNT 209 K/uL (130-400); RED BLOOD COUNT 3.31 M/uL (4.7-6.1)
[2017-10-07] MEDS: DILTIAZEM HCL INJ 125 MG in DEXTROSE 5% 100ML 100 ML IV PRN (05:19)
[2017-10-07 05:34] LABS: BUN/CREATININE RATIO 33.5 (10-20); CALCIUM 7.8 mg/dl (8.5-10.1); CREATININE 1.24 mg/dl (0.60-1.40); MAGNESIUM 2.9 mg/dl (1.8-2.4); POTASSIUM 3.3 mmol/L (3.5-5.1)
[2017-10-07 06:04] LABS: PHOSPHORUS 1.6 mg/dl (2.5-4.9)
[2017-10-07] MEDS: ACYCLOVIR SOD INJ 750 MG in DEXTROSE 5% 250ML 250 ML IV SCH ×2 (06:43→19:12)
[2017-10-07] MEDS: ACETAMINOPHEN IV 100 ML IV PRN (08:29)
[2017-10-07] MEDS: NORMOSOL R 1,000 ML IV SCH ×2 (08:30→15:18)
[2017-10-07] MEDS: THIAMINE HCL 100 MG/ML 2 ML VIAL IM SCH (08:34)
--- NOTE | 2017-10-07 09:01 | Pharmacy Progress Note ---
Pharmacy Abx Dose Short Note Date of Service Oct 07, 2017. Assessment & Plan Assessment 86 year old male receiving vanc,cefepime, and acyclovir for treatment of pneumonia. Cultures have been negative to date and MRSA nasal swab negative. As previously noted in earlier notes will await the final results of CSF culture to de-escalate. Renal function is labile and thus we are dosing by random levels. If renal function remains the same or continues to improve, would anticipating being able to schedule doses tomorrow if therapy is to continue. Day # 5of antimicrobial therapy. Plan Vancomycin * Random level of 14.9 mcg/mL is slightly subtherapeutic * One time dose of 1500 mg IV X1 * Goal trough level for: 15 to 20 mcg/mL * Random level ordered for: 10/08/17 Pharmacy will continue to follow and will adjust dose/frequency as necessary. Thank you.
[2017-10-07] MEDS: CEFEPIME IV 1,000 MG in SYRINGE 0 ML IV SCH ×2 (09:04→21:11)
[2017-10-07] MEDS: FAMOTIDINE IV INJ 20 MG in SYRINGE 3 ML IV SCH ×2 (09:04→20:41)
[2017-10-07] MEDS ORDERED: VANCOMYCIN INJ 1,500 MG in SODIUM CHLORIDE 0.9% 500ML 500 ML IV ONE (09:15)
[2017-10-07] MEDS: LEVOTHYROXINE SODIUM IV SCH (09:21)
[2017-10-07] MEDS: POTASSIUM CHLR 10 MEQ / WTR 10 MEQ in PREMIXED WATER 100 ML IV SCH ×2 (09:23→09:50)
--- NOTE | 2017-10-07 10:01 | DIAGNOSTIC IMAGING REPORT ---
CHEST ONE VIEW PORTABLE HISTORY: 86 years-old Male Pulmonary Edema, pt unresponsive, getting IVF COMPARISON: Chest radiograph 10/06/2017, CTA chest 10/03/2017 TECHNIQUE: Portable AP view of the chest FINDINGS: Cardiac silhouette is moderately enlarged. Left pectoral pacer appears unchanged. Atherosclerosis of the aorta. Multifocal multilobar midlung zone and bibasilar predominant mixed interstitial and alveolar opacities are seen, progressively worsened from comparison. There is no pneumothorax. Mild blunting of the gastric angles suggests trace effusions. Bones appear grossly intact. IMPRESSION: 1. Cardiomegaly with progressively worsened bilateral mixed interstitial and alveolar opacities suggesting pulmonary edema with superimposed pneumonia also in the differential. 2. Mild blunting of the costophrenic angles suggests trace effusions. The above report was generated using voice recognition software. It may contain grammatical, syntax or spelling errors. Electronically signed by: Jose Beavers M.D. 10/07/2017 10:00 AM Dictated Date/Time: 10/07/2017 9:58 AM
--- NOTE | 2017-10-07 10:03 | Neurology Progress Notes ---
Neurology Progress Note Date of Service Oct 07, 2017. Subjective Patient was wake last evening, moving more, and even said of few words to his daughters, who related this story to me this morning. He was described as being restless all night. This morning, the patient was found to be with an O2 saturation of 88 percent around 0730. He was given 4mg morphine for restlessness around 0830 hours this morning. Apparently has not had any myoclonic jerks or seizure activity noted since yesterday. Depakote level was 51 this morning. Objective Date Time Temp Pulse Resp B/P (MAP) Pulse Ox O2 Delivery O2 Flow Rate FiO2 10/07/17 07:13 95 20 91 Nasal Cannula 4.0 10/07/17 06:55 36.7 90 32 148/86 (106) 92 Nasal Cannula 92.0 10/07/17 05:38 89 167/88 10/07/17 04:00 Nasal Cannula 4.0 10/07/17 03:45 36.5 89 22 167/88 (114) 97 Humidified Oxygen 4.5 10/07/17 01:53 109 20 99 Nasal Cannula 4.0 10/07/17 00:11 74 153/68 10/07/17 00:00 Nasal Cannula 4.0 10/06/17 23:35 36.5 114 20 156/87 (110) 96 Nasal Cannula 4.0 Humidified Oxygen 10/06/17 20:59 36.8 74 26 153/68 (96) 99 Nasal Cannula 6.0 10/06/17 20:05 76 10/06/17 20:00 Nasal Cannula 4.0 10/06/17 19:55 96 22 95 Mask 7.0 10/06/17 17:51 111 10/06/17 17:36 92 10/06/17 16:00 Nasal Cannula 5.0 10/06/17 15:30 37.2 111 20 128/58 (81) 95 Nasal Cannula 6.0 Humidified Oxygen 10/06/17 12:00 Nasal Cannula 5.0 10/06/17 11:55 36.6 76 18 145/63 (90) 96 Nasal Cannula Last 24 Hours Test 10/07/17 04:40 10/07/17 08:00 White Blood Count 11.90 K/uL Red Blood Count 3.31 M/uL Hemoglobin 11.9 g/dL Hematocrit 35.8 % Mean Corpuscular Volume 108.2 fL Mean Corpuscular Hemoglobin 36.0 pg Mean Corpuscular Hemoglobin Concent 33.2 g/dl Platelet Count 209 K/uL Mean Platelet Volume 10.1 fL Neutrophils (%) (Auto) 87.3 % Lymphocytes (%) (Auto) 6.0 % Monocytes (%) (Auto) 6.1 % Eosinophils (%) (Auto) 0.0 % Basophils (%) (Auto) 0.0 % Neutrophils # (Auto) 10.40 K/uL Lymphocytes # (Auto) 0.71 K/uL Monocytes # (Auto) 0.72 K/uL Eosinophils # (Auto) 0.00 K/uL Basophils # (Auto) 0.00 K/uL RDW Standard Deviation 51.8 fL RDW Coefficient of Variation 13.1 % Immature Granulocyte % (Auto) 0.6 % Immature Granulocyte # (Auto) 0.07 K/uL Sodium Level 144 mmol/L Potassium Level 3.3 mmol/L Chloride Level 109 mmol/L Carbon Dioxide Level 30 mmol/L Anion Gap 5.0 mmol/L Blood Urea Nitrogen 42 mg/dl Creatinine 1.24 mg/dl Est Creatinine Clear Calc Drug Dose 38.6 ml/min Estimated GFR () 60.6 Estimated GFR (Non- 52.3 BUN/Creatinine Ratio 33.5 Random Glucose 148 mg/dl Calcium Level 7.8 mg/dl Phosphorus Level 1.6 mg/dl Magnesium Level 2.9 mg/dl Random Vancomycin Level 14.9 mcg/ml Valproic Acid (Depakene) Level 51 mcg/ml Exam: The exam was done at 0930 hours. He is lying in bed breathing deeply a regular rate. His eyes are closed and he has little spontaneous movement. He does have some withdrawal to deep pain but is not opening his eyes to voice or clap or stimulation. He will grimace some with the pain. There is no vocalizations. The patient has no abnormal involuntary movements or myoclonic jerks. Current Inpatient Medications Medications (Trade) Dose Ordered Sig/Chel Route Start Time Stop Time Status Last Admin Dose Admin Ioversol (Optiray 320) 100 ml UD PRN IV 10/03/17 18:15 10/07/17 18:14 Acetaminophen (Tylenol Tab) 650 mg Q4H PRN PO 10/03/17 20:15 11/02/17 20:14 Hydrocortisone Sodium Succinate 100 mg/Syringe 2 ml @ 4 mls/min Q8H IV 10/04/17 00:00 11/02/17 20:14 10/07/17 08:33 4 MLS/MIN Ondansetron HCl (Zofran Inj) 4 mg Q6H PRN IV 10/03/17 20:15 11/02/17 20:14 Acetaminophen 100 ml @ 400 mls/hr Q8H PRN IV 10/03/17 20:15 11/02/17 20:14 10/07/17 08:29 400 MLS/HR Ipratropium [place] (Atrovent 0.02% 0.5MG/2.5ML Neb) 0.5 mg Q6R INH 10/04/17 03:00 11/03/17 02:59 10/07/17 07:12 0.5 MG Levalbuterol (Xopenex 1.25MG/ 0.5ML Neb) 1.25 mg Q6R INH 10/04/17 03:00 11/03/17 02:59 10/07/17 07:12 1.25 MG Vancomycin HCl (Consult) 1 ea UD PRN N/A 10/03/17 22:15 11/02/17 22:14 Famotidine 20 mg/ Syringe 5 ml @ 2.5 mls/min Q12 IV 10/03/17 23:00 11/02/17 22:59 10/07/17 09:04 2.5 MLS/MIN Metoprolol Tartrate (Lopressor Iv) 5 mg Q4 PRN IV 10/04/17 00:00 11/03/17 00:00 10/04/17 16:15 5 MG Heparin Sodium (Porcine) (Heparin 10 Unit/ ml 5 ml Flush) 5 ml PRN PRN FLUSH 10/04/17 00:45 11/03/17 00:44 10/04/17 04:06 5 ML Levothyroxine Sodium 62 mcg/ Syringe 3.1 ml @ 2 mls/min DAILY@09 IV 10/04/17 09:00 11/03/17 08:59 10/07/17 09:21 2 MLS/MIN Morphine Sulfate (MoRPHine SULFATE INJ) 4 mg Q4 PRN IV 10/04/17 13:45 10/18/17 08:29 10/07/17 08:30 4 MG Diltiazem HCl 125 mg/Dextrose 125 ml @ 0 mls/hr Q0M PRN IV 10/05/17 06:15 11/04/17 06:14 10/07/17 05:19 15 MLS/HR Cefepime HCl (Consult) 1 ea UD PRN N/A 10/05/17 12:00 11/04/17 11:59 Acyclovir Sodium 750 mg/Dextrose 265 ml @ 250 mls/hr Q12H IV 10/05/17 19:00 10/15/17 18:59 10/07/17 06:43 250 MLS/HR Parenteral Electrolyte Solution 1,000 ml @ 80 mls/hr [id number] IV 10/05/17 17:30 11/04/17 17:29 10/07/17 08:30 80 MLS/HR Acyclovir Sodium (Consult) 1 ea UD PRN N/A 10/05/17 18:15 11/04/17 18:14 Cefepime HCl 1000 mg/Syringe 11 ml @ 5.5 mls/min Q12H IV 10/06/17 20:00 10/10/17 23:59 10/07/17 09:04 5.5 MLS/MIN Valproate Sodium 250 mg/Dextrose 52.5 ml @ 55 mls/hr Q6H IV 10/06/17 15:00 11/05/17 14:59 10/07/17 08:34 55 MLS/HR Thiamine HCl (Vitamin B-1 Inj) 100 mg QAM IM 10/07/17 09:00 11/06/17 08:59 10/07/17 08:34 100 MG Metoprolol Tartrate (Lopressor Iv) 5 mg Q6 IV. 10/06/17 18:00 11/05/17 17:59 10/07/17 05:38 5 MG Potassium Chloride 10 meq/ Prmx 100 ml @ 100 mls/hr Q1H IV 10/07/17 08:30 10/07/17 10:29 10/07/17 09:23 100 MLS/HR Vancomycin HCl 1500 mg/Sodium Chloride 530 ml @ 200 mls/hr ONE ONCE IV 10/07/17 09:15 10/07/17 11:53 10/07/17 09:21 200 MLS/HR Impression 1. Acute encephalopathy. Clinically, he made nice improvements even responding and talking by last evening, but was restless overnight and ended up getting morphine. Now he is less responsive because of that IV morphine dose. His myoclonus and seizure activity has resolved. Depakote level was 51. EEG 12-5 showed a moderate to significant generalized encephalopathy with suspicious lesions for potentially epileptogenic activity. It was not true subclinical seizures or subclinical status, but the patient is much improved with his myoclonic movements compared to yesterday. There are no obvious etiologies of encephalopathy from a toxic or metabolic standpoint. He has significant pulmonary issues and pneumonia might create encephalopathy due to oxygenation/ischemic issues. His O2 saturation was mildly lower this morning and this was adjusted. He does not have any overt meningeal signs. There was a concern for central nervous system infection, he has been covered with appropriate broad-spectrum antibiotic and antiviral coverage, but LP was deemed to be not indicated by Radiology because of his previous subdural hematoma. In all likelihood, he was having subclinical seizure activity and myoclonic jerks, creating the encephalopathy, which has now improved. 2. History of epilepsy, originally on Dilantin, but now on Depakote. 3. History of depression, seemingly controlled on citalopram 4. Severe pulmonary fibrosis/COPD and possible pneumonia superimposed. Plan 1. I see no need for additional loading doses of Depakote but with keep him at 250 milligrams every 6 hours 2. Check a trough Depakote level each morning I spent a total of 35 minutes with this patient, reviewing records, at bedside evaluating the patient, discussing his case with his daughter (at bedside), and discussing with his hospitalist care team.
[2017-10-07] MEDS ORDERED: POTASSIUM PHOS 3 MMOL/1 ML INFUSION IV STA (15:55)
--- NOTE | 2017-10-07 16:11 | Family Medicine Progress Note ---
Progress Note Date of Service Oct 07, 2017. Subjective Pt evaluation today including: conversation w/ patient, physical exam, chart review, lab review The patient was seen and examined at bedside. Patient is minimally responsive. Patient continues to be in soft restraints. Plan of care was described to the family and all questions were answered. ROS: Unable to asses due to patients baseline medical condition. Objective Physical Exam Notes: General Appearance: WD/WN, non responsive, patient is spontaneously moving his upper and lower extremities, not talking, able to close his mouth to a mouth swab but not on command, patient has minimal eye tracking. Patient does increase his motion in response to different persons in the room. Neck: supple Respiratory/Chest: chest non-tender, lungs clear, no respiratory distress, no accessory muscle use Cardiovascular: no JVD, no murmur, + tachycardia, + irregularly irregular Abdomen: normal bowel sounds, non tender, soft, no hepatosplenomegaly appreciated. Extremities: + pertinent finding (Unable to wiggle toes or squeeze fingers to command.) Neurologic/Psychiatric: alert, + pertinent finding (Does not respond to commands at all including movies his upper or lower extremities, blinding, opening or closing mouth or turning his head. There is spontaneous myoclonic jerking of the upper and lower extremities - similar presentation to yesterday). Skin: no rash Assessment and Plan 86M with a PMHx of Pulmonary Fibrosis that was recently discharged from [facility] for a intracranial hemorrhage on 10/01/2017 - patient was at his baseline on his discharge - family denies any acute event (fall or trauma) after discharge. Pt was brought in and was non responsive in the ER. Patient continues to be encephalopathic. At present we believe he has neurological sequalae from his previous intracranial bleeds and this is a prolonged post ictal state. LP is contraindicated due to recent subdural hematoma. He was started on Depakote and we will continue this at present. Encephalopathy 2/2 Pneumonia vs Seizure vs Stroke This is unlikely from acute respiratory failure considering he has good saturations on oxygen and his ABG was relatively normal. Repeat Head CT Scan showed no evidence of an increasing hemorrhage. MRI contraindicated due to Pacemaker. X-ray today showed possible increasing pulmonary congestion. From a Neuro standpoint * Pt continues to require soft restraints for pulling at his IV lines. * EEG was non specific. * c/w Depakote 250mg IV q8h. Level this AM was therapeutic. * c/w Daily B12 IV and Thiamine. * We will continue empiric Acyclovir for possible herpetic encephalitis. Day # 2. From a Cardiology standpoint, there is not much to do other than control the rate in an effort to improve heart function. * Echo showed a severe decrease in LV function compared to echo in 2015, EF 30- 35%. * Because of increasing pulmonary edema we will hold the Normosol and give lasix 20mg IV. From an infectious standpoint we will continue to treat the patient has having a bilateral pneumonia. * Continue IV Vanc and Cefepime, with new renal dosing. Day #5 A Fib with RVR * Was on 25mg PO Metoprolol BID, now has Lopressor 5mg IV Q4H for HR>100. * Defer to management of HR to cardiology. * Patient is presently on a Diltiazem Drip. Elevated Troponins * Elevated Troponins were likely demand ischemia. * Not a candidate for ASA or any heparin whatsoever due to IC bleed. * A Fib management as above. * Echo results as above. Idiopathic Pulmonary Fibrosis * Patient is wearing an oxymask, correction from previous note, patient was on oxygen at home. Recent intracranial bleeds * No evidence of worsening on CT Head x 2. * Hold Dilantin and Continue with Depakote as above. * Stress steroids, c/w hydrocortisone 100 mg IV every 8 hours. 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 Hypothyroidism * c/w Levothyroxine 62mcg IV Diet: * Pt has now not eaten in 5 days, we will consider TPN tomorrow or an NG tube. * We will check phosphate and Mag tomorrow in the AM. * Phosphate repleted today with 15mmol KPhos. Electrolytes * K+ 3.3 replaced with 20meqIV + 15mmol KPhos. * Phos was low, repleted as above. * Mg normal DVT Proph * SCDS, not a candidate for AC due to recent IC bleeds. Dispo: Tele, continued complex medical issues, still unclear if baseline medical condition is reversible. DNR Resident Physician Supervision Note: I was present with the resident during the history and exam. I discussed the case with the resident and agree with the findings and plan as documented in the note. Any exceptions or clarifications are listed here: Family reports that the patient was awake and interactive late yesterday afternoon and early evening. Staff reports that the patient had increased agitation and needed a one-to-one sitter overnight. This morning, the patient is sleeping; he will open his eyes to loud voice, and withdrawal from painful stimuli, although he quickly returns to sleeping. It is noted the patient had 4 mg of IV morphine approximately 15 minutes before my examination. The fasciculations and extremity movements present for the last 3 days has completely resolved. His chest x-ray appears to have slight increase in pulmonary edema as compared to previous; although he is satting well on nasal oxygen. His potassium and phosphorus are low on AM labs. PLAN 1) Lasix 20 mg IV 1 now. 2) closely monitor I's and O's/chest x-ray in a.m. 3) replace potassium and phosphorus 4) I discussed with the family that the patient has not eaten in 5 days. We discussed the possibility of placing an NG tube if the patient is not awake enough tomorrow to take nourishment himself. I'm still hopeful that he will improve in terms of his wakefulness, so this would be a "bridge" until he is able to take food orally. Documented By: Camden Dennis Resident Involvement: Resident Care Provided Care Provided: Adult Hospital Medicine
[2017-10-07] MEDS ORDERED: CYANOCOBALAMIN 1000 MCG/ML VIAL IV ONE (16:30)
[2017-10-07] MEDS ORDERED: POTASSIUM PHOSPHATE INJ 15 MMOL in SODIUM CHLORIDE 0.9% 250ML 250 ML IV ONE (16:30)
[2017-10-07] MEDS ORDERED: FUROSEMIDE INJ 20 MG in SYRINGE 0 ML IV ONE (16:30)
--- NOTE | 2017-10-07 16:48 | Cardiology Follow-Up ---
Subjective Date of Service: Oct 07, 2017. Pt evaluation today including: conversation w/ patient, conversation w/ family , physical exam, lab review, review of studies, review of inpatient medication list History of Present Illness This is an 86-year-old gentleman who has a history of coronary artery disease, prior ischemic cardiomyopathy with resolution, mild valvular disease as well as a number of other medical problems. He presented on January 03, 2015 with diminished exercise tolerance and was noted to have sinus node dysfunction. He therefore underwent pacemaker implantation on March 05, 2015. At surgery he had an unusual finding of no detectable atrial electrical activity despite being in sinus rhythm, and no atrial pacing at full output in any of multiple locations tested. 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 He paces relatively infrequently. He did have atrial fibrillation identified in 2014 following pacemaker implantation, since there is no atrial lead we cannot determine the frequency or duration of it but it is evidently paroxysmal. At that time his heart rate was well-controlled and he was started on anticoagulation. He has had a number of falls, including one in June 2016 where he hit his head, apparently had a small intracerebral bleed and his Pradaxa was held and he was transferred to [facility]. He had a full evaluation there with no clear etiology. He was back on Pradaxa. He fell at home on 09/29/2017, refused hospitalization however several days later he was seen in the emergency room which demonstrated an acute subdural hematoma and he was transferred to [facility]. He was discharged from there on 10/01/2017 to return home with instructions not to start his Pradaxa until 10/14/2017. His mental status continued to decline and he was brought to the emergency room on 10/04/2017. Here he was observed to have an elevated troponin, to be minimally responsive and to be in congestive heart failure and atrial fibrillation. To control his heart rate I converted his digoxin and metoprolol to intravenous form and he remained on intravenous diltiazem. Today he continues to be minimally responsive and lying in bed. He appears comfortable. Social History Smoking Status: Never Smoker History of Alcohol Use: No Review of Systems He cannot provide a meaningful review of systems Medications Cardiovascular: Item Value Date Time Metoprolol 5 mg 10/06/17 1800 Tartrate Q6/IV. 10/07/17 1247 (Lopressor Iv) Diltiazem HCl 125 125 ml @ 0 mls/hr 10/05/17 0615 mg/Dextrose .Q0M PRN/IV 10/07/17 0519 Objective Vital Signs Past 12 Hours Date Time Temp Pulse Resp B/P (MAP) Pulse Ox O2 Delivery O2 Flow Rate FiO2 10/07/17 15:20 37.6 81 18 153/74 (100) 91 Nasal Cannula 4.0 10/07/17 13:55 73 20 92 Nasal Cannula 4.0 10/07/17 12:47 82 10/07/17 12:00 88 Nasal Cannula 4.0 10/07/17 11:54 36.4 71 16 155/76 (102) 97 Nasal Cannula 4.0 10/07/17 08:00 88 Nasal Cannula 4.0 10/07/17 07:13 95 20 91 Nasal Cannula 4.0 10/07/17 06:55 36.7 90 32 148/86 (106) 92 Nasal Cannula 92.0 10/07/17 05:38 89 167/88 Last Recorded Weight-Kilograms: 76.500 Intake & Output 8-Hour Column 10/07/17 10/08/17 10/08/17 16:00 00:00 08:00 Intake Total 0 ml Output Total 350 ml Balance -350 ml 24-Hour Column 10/08/17 08:00 Intake Total 0 ml Output Total 350 ml Balance -350 ml Physical Exam Constitutional: Level of Distress: acutely ill Lungs: Auscultation: breath sounds normal Cardiovascular: Heart Auscultation: tachycardia, irregular rate rhythm Data Laboratory Results: Last 24 Hours Test 10/07/17 04:40 White Blood Count 11.90 K/uL Red Blood Count 3.31 M/uL Hemoglobin 11.9 g/dL Hematocrit 35.8 % Mean Corpuscular Volume 108.2 fL Mean Corpuscular Hemoglobin 36.0 pg Mean Corpuscular Hemoglobin Concent 33.2 g/dl Platelet Count 209 K/uL Mean Platelet Volume 10.1 fL Neutrophils (%) (Auto) 87.3 % Lymphocytes (%) (Auto) 6.0 % Monocytes (%) (Auto) 6.1 % Eosinophils (%) (Auto) 0.0 % Basophils (%) (Auto) 0.0 % Neutrophils # (Auto) 10.40 K/uL Lymphocytes # (Auto) 0.71 K/uL Monocytes # (Auto) 0.72 K/uL Eosinophils # (Auto) 0.00 K/uL Basophils # (Auto) 0.00 K/uL RDW Standard Deviation 51.8 fL RDW Coefficient of Variation 13.1 % Immature Granulocyte % (Auto) 0.6 % Immature Granulocyte # (Auto) 0.07 K/uL Sodium Level 144 mmol/L Potassium Level 3.3 mmol/L Chloride Level 109 mmol/L Carbon Dioxide Level 30 mmol/L Anion Gap 5.0 mmol/L Blood Urea Nitrogen 42 mg/dl Creatinine 1.24 mg/dl Est Creatinine Clear Calc Drug Dose 38.6 ml/min Estimated GFR () 60.6 Estimated GFR (Non- 52.3 BUN/Creatinine Ratio 33.5 Random Glucose 148 mg/dl Calcium Level 7.8 mg/dl Phosphorus Level 1.6 mg/dl Magnesium Level 2.9 mg/dl Random Vancomycin Level 14.9 mcg/ml Valproic Acid (Depakene) Level 51 mcg/ml Telemetry reviewed: Telemetry monitoring shows good heart rate control over the last 12 hours. Assessment and Plan #1. Atrial fibrillation: Although he has a history of atrial fibrillation ( which was identified during his hospitalization after his pacemaker was implanted) for the most part he is in sinus rhythm when he has been monitored or had electrocardiograms done. We don't know the frequency or duration of his arrhythmia in general but it has not seemed to be much of a problem in the past. This episode likely started 10/03/2017 and has continued, based on high ventricular rates in his pacemaker memory. Without an atrial lead we can't be certain but that is very likely. He was on Pradaxa in the past, it is being held due to his [employer]END[employer] bleed until 10/14/2017 her Zari's instructions. His rate control is much better but he remains on intravenous diltiazem. I'm going to titrate down his diltiazem and continue intravenous digoxin and metoprolol. #2. Congestive heart failure: I am not sure why he is in congestive heart failure, since the arrhythmia likely started very shortly before his presentation and he probably wasn't eating or drinking much I don't know that the arrhythmia caused it although it is possible. It is also possible he developed congestive heart failure and then went into atrial fibrillation. Either way he may need diuresis. #3. Elevated troponin: Although I cannot exclude an ischemic event, his troponin trend suggests demand ischemia (it is a decreasing pattern) likely due to his rapid heart rate in atrial fibrillation (which probably started shortly before admission) and his congestive heart failure. I would not pursue further evaluation at this time. #4. Pacemaker: His pacemaker is functioning well, with appropriate infrequent pacing. Thank you for allowing me to participate in his care.
[2017-10-07] MEDS ORDERED: CYANOCOBALAMIN 1000 MCG/ML VIAL IM ONE (17:00)
[2017-10-07] MEDS ORDERED: DIGOXIN IV 250 MCG in SYRINGE 9 ML IV ONE (17:15)
[2017-10-08] VITALS (12 sets, daily range): BP systolic 150–189; BP diastolic 76–105; PULSE 81–120; TEMP 36.3–38.3; O2SAT 90–98
[2017-10-08] MEDS: HYDROCORTISONE IV 100 MG in SYRINGE 0 ML IV SCH ×3 (00:03→16:47)
[2017-10-08] MEDS: METOPROLOL TARTRATE 1 MG/ML VIAL IV. SCH ×4 (00:05→17:27)
[2017-10-08] MEDS: ACETAMINOPHEN IV 100 ML IV PRN ×2 (00:29→13:46)
[2017-10-08] MEDS: MoRPHine SULFATE 4 MG/ML 1 ML CARP\\VIAL IV PRN ×2 (00:56→06:48)
[2017-10-08] MEDS: LEVALBUTEROL 1.25MG/0.5ML NEB INH SCH ×4 (02:11→19:13)
[2017-10-08] MEDS: IPRATROPIUM BROMIDE NEB SOLN 0.02% 2.5 ML VIAL INH SCH ×4 (02:11→19:13)
[2017-10-08] MEDS: VALPROATE SOD IV 250 MG in DEXTROSE 5% 50ML 50 ML IV SCH (03:17)
[2017-10-08 05:19] LABS: BASO % 0.1 %; BASO ABS # 0.01 K/uL (0-0.2); COMPLETE YES; HEMATOCRIT 36.1 % (42-52); IG% 0.6 %; LYMPH ABS # 1.06 K/uL (1.2-3.4); MEAN CELL VOLUME 109.1 fL (80-100); MEAN PLATELET VOLUME 10.2 fL (7.4-10.4); MONO % 5.5 %; NEUT % 85.8 %; PLATELET COUNT 213 K/uL (130-400); RED BLOOD COUNT 3.31 M/uL (4.7-6.1); WHITE BLOOD COUNT 13.18 K/uL (4.8-10.8)
[2017-10-08 05:50] LABS: BUN/CREATININE RATIO 27.3 (10-20); CALCIUM 7.6 mg/dl (8.5-10.1); CREATININE 1.46 mg/dl (0.60-1.40); MAGNESIUM 2.8 mg/dl (1.8-2.4); POTASSIUM 3.6 mmol/L (3.5-5.1)
[2017-10-08 05:58] LABS: PHOSPHORUS 2.8 mg/dl (2.5-4.9)
[2017-10-08] MEDS: ACYCLOVIR SOD INJ 750 MG in DEXTROSE 5% 250ML 250 ML IV SCH ×2 (06:31→18:42)
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
--- NOTE | 2017-10-08 07:57 | Neurology Progress Notes ---
Neurology Progress Note Date of Service Oct 08, 2017. Subjective Patient apparently has some occasional tremors or twitching, but is not having any overt activity like he was earlier this hospital stay. Nursing reports no other new issues overnight. He received morphine at midnight last night and 0648 hours this AM. CBC and Chem profile are largely unchanged. Depakote level was 48 this morning. Blood pressure is 156/95 this. Objective Date Time Temp Pulse Resp B/P (MAP) Pulse Ox O2 Delivery O2 Flow Rate FiO2 10/08/17 07:16 36.3 84 26 166/95 (118) 96 11.0 10/08/17 07:02 81 20 98 Mask 10.0 10/08/17 05:43 94 164/76 10/08/17 04:00 Nasal Cannula 10.0 Oxymask 10/08/17 03:03 36.5 94 19 164/76 (105) 97 Nasal Cannula 10/08/17 02:11 91 20 97 Mask 10.0 10/08/17 00:05 37.5 102 22 168/77 (107) 93 Oxymask 10.0 10/08/17 00:05 96 168/77 10/08/17 00:00 Nasal Cannula 10.0 Oxymask 10/07/17 20:20 75 20 92 Mask 10.0 10/07/17 20:00 92 Oxymask 10.0 10/07/17 19:01 36.9 77 18 164/70 (101) 92 Oxymask 10.0 10/07/17 17:57 76 162/78 10/07/17 17:17 76 10/07/17 16:00 91 Nasal Cannula 4.0 10/07/17 15:20 37.6 81 18 153/74 (100) 91 Nasal Cannula 4.0 10/07/17 13:55 73 20 92 Nasal Cannula 4.0 10/07/17 12:47 82 10/07/17 12:00 88 Nasal Cannula 4.0 10/07/17 11:54 36.4 71 16 155/76 (102) 97 Nasal Cannula 4.0 10/07/17 08:00 88 Nasal Cannula 4.0 Last 24 Hours Test 10/08/17 04:59 White Blood Count 13.18 K/uL Red Blood Count 3.31 M/uL Hemoglobin 11.9 g/dL Hematocrit 36.1 % Mean Corpuscular Volume 109.1 fL Mean Corpuscular Hemoglobin 36.0 pg Mean Corpuscular Hemoglobin Concent 33.0 g/dl Platelet Count 213 K/uL Mean Platelet Volume 10.2 fL Neutrophils (%) (Auto) 85.8 % Lymphocytes (%) (Auto) 8.0 % Monocytes (%) (Auto) 5.5 % Eosinophils (%) (Auto) 0.0 % Basophils (%) (Auto) 0.1 % Neutrophils # (Auto) 11.30 K/uL Lymphocytes # (Auto) 1.06 K/uL Monocytes # (Auto) 0.73 K/uL Eosinophils # (Auto) 0.00 K/uL Basophils # (Auto) 0.01 K/uL RDW Standard Deviation 52.5 fL RDW Coefficient of Variation 13.3 % Immature Granulocyte % (Auto) 0.6 % Immature Granulocyte # (Auto) 0.08 K/uL Sodium Level 143 mmol/L Potassium Level 3.6 mmol/L Chloride Level 110 mmol/L Carbon Dioxide Level 32 mmol/L Anion Gap 1.0 mmol/L Blood Urea Nitrogen 40 mg/dl Creatinine 1.46 mg/dl Est Creatinine Clear Calc Drug Dose 32.8 ml/min Estimated GFR () 49.8 Estimated GFR (Non- 42.9 BUN/Creatinine Ratio 27.3 Random Glucose 145 mg/dl Calcium Level 7.6 mg/dl Phosphorus Level 2.8 mg/dl Magnesium Level 2.8 mg/dl Random Vancomycin Level 19.8 mcg/ml Digoxin Level 1.2 ng/ml Valproic Acid (Depakene) Level 48 mcg/ml Exam: He is lying in bed with his eyes closed with heavy, fairly regular breathing rate. He occasionally moves his limbs but is not having any myoclonic jerks. With loud clapping he has no response. To loud voice plus sternal rub he will open his eyes and make brief eye contact. He keeps his eyes open. He has increased movement of his limbs after this. He had some moaning and increased movement with deep pain bilaterally but no words. There is no facial droop. Tongue is midline. Pupils are equal and reactive. Tone is symmetrical in the limbs. Current Inpatient Medications Medications (Trade) Dose Ordered Sig/Chel Route Start Time Stop Time Status Last Admin Dose Admin Acetaminophen (Tylenol Tab) 650 mg Q4H PRN PO 10/03/17 20:15 11/02/17 20:14 Hydrocortisone Sodium Succinate 100 mg/Syringe 2 ml @ 4 mls/min Q8H IV 10/04/17 00:00 11/02/17 20:14 10/08/17 00:03 4 MLS/MIN Ondansetron HCl (Zofran Inj) 4 mg Q6H PRN IV 10/03/17 20:15 11/02/17 20:14 Acetaminophen 100 ml @ 400 mls/hr Q8H PRN IV 10/03/17 20:15 11/02/17 20:14 10/08/17 00:29 400 MLS/HR Ipratropium [place] (Atrovent 0.02% 0.5MG/2.5ML Neb) 0.5 mg Q6R INH 10/04/17 03:00 11/03/17 02:59 10/08/17 07:00 0.5 MG Levalbuterol (Xopenex 1.25MG/ 0.5ML Neb) 1.25 mg Q6R INH 10/04/17 03:00 11/03/17 02:59 10/08/17 07:00 1.25 MG Vancomycin HCl (Consult) 1 ea UD PRN N/A 10/03/17 22:15 11/02/17 22:14 Famotidine 20 mg/ Syringe 5 ml @ 2.5 mls/min Q12 IV 10/03/17 23:00 11/02/17 22:59 10/07/17 20:41 2.5 MLS/MIN Metoprolol Tartrate (Lopressor Iv) 5 mg Q4 PRN IV 10/04/17 00:00 11/03/17 00:00 10/04/17 16:15 5 MG Heparin Sodium (Porcine) (Heparin 10 Unit/ ml 5 ml Flush) 5 ml PRN PRN FLUSH 10/04/17 00:45 11/03/17 00:44 10/04/17 04:06 5 ML Levothyroxine Sodium 62 mcg/ Syringe 3.1 ml @ 2 mls/min DAILY@09 IV 10/04/17 09:00 11/03/17 08:59 10/07/17 09:21 2 MLS/MIN Diltiazem HCl 125 mg/Dextrose 125 ml @ 0 mls/hr Q0M PRN IV 10/05/17 06:15 11/04/17 06:14 10/07/17 05:19 15 MLS/HR Cefepime HCl (Consult) 1 ea UD PRN N/A 10/05/17 12:00 11/04/17 11:59 Acyclovir Sodium 750 mg/Dextrose 265 ml @ 250 mls/hr Q12H IV 10/05/17 19:00 10/15/17 18:59 10/08/17 06:31 250 MLS/HR Parenteral Electrolyte Solution 1,000 ml @ 80 mls/hr [id number] IV 10/05/17 17:30 11/04/17 17:29 Future Hold 10/07/17 15:18 80 MLS/HR Acyclovir Sodium (Consult) 1 ea UD PRN N/A 10/05/17 18:15 11/04/17 18:14 Cefepime HCl 1000 mg/Syringe 11 ml @ 5.5 mls/min Q12H IV 10/06/17 20:00 10/10/17 23:59 10/07/17 21:11 5.5 MLS/MIN Thiamine HCl (Vitamin B-1 Inj) 100 mg QAM IM 10/07/17 09:00 11/06/17 08:59 10/07/17 08:34 100 MG Metoprolol Tartrate (Lopressor Iv) 5 mg Q6 IV. 10/06/17 18:00 11/05/17 17:59 10/08/17 05:43 5 MG Cyanocobalamin (Vitamin B-12 Inj) 1,000 mcg DAILY IM 10/08/17 09:00 10/13/17 08:59 Valproate Sodium 500 mg/Dextrose 55 ml @ 55 mls/hr TID IV 10/08/17 09:00 11/07/17 08:59 UNV Valproate Sodium 500 mg/Dextrose 55 ml @ 55 mls/hr ONE STAT IV 10/08/17 07:43 10/08/17 08:42 UNV Impression 1. Acute encephalopathy. Clinically, he made nice improvements even responding and talking in the evening of 10-06. Yesterday he was less responsive. Overnight he is described as restless (translated by nursing as possible discomfort/pain) and ended up getting morphine twice. He has less responsive than 2 days ago but more responsive than yesterday. His myoclonus and seizure activity has largely resolved, however, I cannot exclude some subclinical or brief seizure activity intermittently.. Depakote level this morning was 48, slightly lower than yesterday. EEG 12-5 showed a moderate to significant generalized encephalopathy with suspicious lesions for potentially epileptogenic activity. It was not true subclinical seizures or subclinical status. There are no obvious etiologies of encephalopathy from a toxic or metabolic standpoint. He has significant pulmonary issues and pneumonia might create encephalopathy due to oxygenation/ischemic issues. His O2 saturation was mildly lower this morning and this was adjusted. He does not have any overt meningeal signs. There was a concern for central nervous system infection, he has been covered with appropriate broad-spectrum antibiotic and antiviral coverage. LP was deemed to be not indicated by Radiology because of his previous subdural hematoma. In all likelihood, he was having subclinical seizure activity and myoclonic jerks, creating the encephalopathy, which has now improved, but probably not resolved. 2. History of epilepsy, originally on Dilantin, but now on Depakote. 3. History of depression, seemingly controlled on citalopram 4. Severe pulmonary fibrosis/COPD and possible pneumonia superimposed. Plan 1. 500 milligram bolus of Depakote IV x1 now 2. Increase Depakote to 500 milligrams q.8 hours 3. Check a trough Depakote level each morning 4. Avoid morphine and any other [employer]ER sedating medication, such as benzodiazepines , as much as possible. We need to give him every chance/opportunity to wake on his own.
[2017-10-08] MEDS ORDERED: VALPROATE SOD IV 500 MG in DEXTROSE 5% 50ML 50 ML IV ONE (08:30)
[2017-10-08] MEDS: CEFEPIME IV 1,000 MG in SYRINGE 0 ML IV SCH ×2 (08:37→20:10)
[2017-10-08] MEDS: FAMOTIDINE IV INJ 20 MG in SYRINGE 3 ML IV SCH ×2 (08:37→22:26)
[2017-10-08] MEDS: CYANOCOBALAMIN 1000 MCG/ML VIAL IM SCH (08:39)
[2017-10-08] MEDS: THIAMINE HCL 100 MG/ML 2 ML VIAL IM SCH (08:39)
[2017-10-08] MEDS ORDERED: CYANOCOBALAMIN 1000 MCG/ML VIAL IV SCH (09:00)
[2017-10-08] MEDS: LEVOTHYROXINE SODIUM IV SCH (09:31)
--- NOTE | 2017-10-08 09:57 | Cardiology Follow-Up ---
Subjective Date of Service: Oct 08, 2017. Pt evaluation today including: conversation w/ patient, conversation w/ family , physical exam, lab review, review of studies, review of inpatient medication list History of Present Illness This is an 86-year-old gentleman who has a history of coronary artery disease, prior ischemic cardiomyopathy with resolution, mild valvular disease as well as a number of other medical problems. He presented on January 03, 2015 with diminished exercise tolerance and was noted to have sinus node dysfunction. He therefore underwent pacemaker implantation on March 05, 2015. At surgery he had an unusual finding of no detectable atrial electrical activity despite being in sinus rhythm, and no atrial pacing at full output in any of multiple locations tested. 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 He paces relatively infrequently. He did have atrial fibrillation identified in 2014 following pacemaker implantation, since there is no atrial lead we cannot determine the frequency or duration of it but it is evidently paroxysmal. At that time his heart rate was well-controlled and he was started on anticoagulation. He has had a number of falls, including one in June 2016 where he hit his head, apparently had a small intracerebral bleed and his Pradaxa was held and he was transferred to [facility]. He had a full evaluation there with no clear etiology. He was back on Pradaxa. He fell at home on 09/29/2017, refused hospitalization however several days later he was seen in the emergency room which demonstrated an acute subdural hematoma and he was transferred to [facility]. He was discharged from there on 10/01/2017 to return home with instructions not to start his Pradaxa until 10/14/2017. His mental status continued to decline and he was brought to the emergency room on 10/04/2017. Here he was observed to have an elevated troponin, to be minimally responsive and to be in congestive heart failure and atrial fibrillation. To control his heart rate I converted his digoxin and metoprolol to intravenous form and he remains on intravenous diltiazem, recently titrated off. Today he continues to be minimally responsive and lying in bed. He appears comfortable. Social History Smoking Status: Never Smoker History of Alcohol Use: No Review of Systems Respiratory: + shortness of breath Cardiac: + chest pain He cannot provide a meaningful review of systems Medications Cardiovascular: Item Value Date Time Metoprolol 5 mg 10/06/17 1800 Tartrate Q6/IV. 10/08/17 0543 (Lopressor Iv) Diltiazem HCl 125 125 ml @ 0 mls/hr 10/05/17 0615 mg/Dextrose .Q0M PRN/IV 10/07/17 0519 Objective Vital Signs Past 12 Hours Date Time Temp Pulse Resp B/P (MAP) Pulse Ox O2 Delivery O2 Flow Rate FiO2 10/08/17 07:16 36.3 84 26 166/95 (118) 96 11.0 10/08/17 07:02 81 20 98 Mask 10.0 10/08/17 05:43 94 164/76 10/08/17 04:00 Nasal Cannula 10.0 Oxymask 10/08/17 03:03 36.5 94 19 164/76 (105) 97 Nasal Cannula 10/08/17 02:11 91 20 97 Mask 10.0 10/08/17 00:05 37.5 102 22 168/77 (107) 93 Oxymask 10.0 10/08/17 00:05 96 168/77 10/08/17 00:00 Nasal Cannula 10.0 Oxymask Last Recorded Weight-Kilograms: 83.700 Physical Exam Constitutional: Level of Distress: acutely ill Lungs: Auscultation: breath sounds normal Cardiovascular: Heart Auscultation: irregular rate rhythm Data Laboratory Results: Last 24 Hours Test 10/08/17 04:59 White Blood Count 13.18 K/uL Red Blood Count 3.31 M/uL Hemoglobin 11.9 g/dL Hematocrit 36.1 % Mean Corpuscular Volume 109.1 fL Mean Corpuscular Hemoglobin 36.0 pg Mean Corpuscular Hemoglobin Concent 33.0 g/dl Platelet Count 213 K/uL Mean Platelet Volume 10.2 fL Neutrophils (%) (Auto) 85.8 % Lymphocytes (%) (Auto) 8.0 % Monocytes (%) (Auto) 5.5 % Eosinophils (%) (Auto) 0.0 % Basophils (%) (Auto) 0.1 % Neutrophils # (Auto) 11.30 K/uL Lymphocytes # (Auto) 1.06 K/uL Monocytes # (Auto) 0.73 K/uL Eosinophils # (Auto) 0.00 K/uL Basophils # (Auto) 0.01 K/uL RDW Standard Deviation 52.5 fL RDW Coefficient of Variation 13.3 % Immature Granulocyte % (Auto) 0.6 % Immature Granulocyte # (Auto) 0.08 K/uL Sodium Level 143 mmol/L Potassium Level 3.6 mmol/L Chloride Level 110 mmol/L Carbon Dioxide Level 32 mmol/L Anion Gap 1.0 mmol/L Blood Urea Nitrogen 40 mg/dl Creatinine 1.46 mg/dl Est Creatinine Clear Calc Drug Dose 32.8 ml/min Estimated GFR () 49.8 Estimated GFR (Non- 42.9 BUN/Creatinine Ratio 27.3 Random Glucose 145 mg/dl Calcium Level 7.6 mg/dl Phosphorus Level 2.8 mg/dl Magnesium Level 2.8 mg/dl Random Vancomycin Level 19.8 mcg/ml Digoxin Level 1.2 ng/ml Valproic Acid (Depakene) Level 48 mcg/ml Telemetry reviewed: Atrial fibrillation with a relatively well-controlled heart rate and appropriate intermittent pacing Assessment and Plan #1. Atrial fibrillation: Although he has a history of atrial fibrillation ( which was identified during his hospitalization after his pacemaker was implanted) for the most part he is in sinus rhythm when he has been monitored or had electrocardiograms done. We don't know the frequency or duration of his arrhythmia in general but it has not seemed to be much of a problem in the past. He was however maintained on anticoagulation until his intracerebral bleeds. This episode of atrial fibrillation likely started 10/03/2017 and has continued, based on high ventricular rates in his pacemaker memory. Without an atrial lead we can't be certain but that timing is very likely. He was on Pradaxa in the past, it is being held due to his [employer] bleed until 10/14/2017 per Zari's instructions. His rate control is much better, with recent discontinuation of his intravenous diltiazem. I'm going to continue intravenous digoxin and increase his intravenous metoprolol. #2. Congestive heart failure: I am not sure why he was in congestive heart failure, since the arrhythmia likely started very shortly before his presentation and he probably wasn't eating or drinking much I don't know that the arrhythmia caused it although it is possible. It is also possible he developed congestive heart failure and then went into atrial fibrillation. #3. Elevated troponin: Although I cannot exclude an ischemic event, his troponin trend suggests demand ischemia (it is a decreasing pattern) likely due to his rapid heart rate in atrial fibrillation (which probably started shortly before admission) and his congestive heart failure. I would not pursue further evaluation at this time. #4. Pacemaker: His pacemaker is functioning well, with appropriate infrequent pacing. Thank you for allowing me to participate in his care.
--- NOTE | 2017-10-08 10:28 | Family Medicine Progress Note ---
Progress Note Date of Service Oct 08, 2017. Subjective Pt evaluation today including: conversation w/ patient, physical exam, chart review, lab review Got Morphine overnight, sedated on exam. Family in the room and spoken to. Restraints are removed. Plan of care was described to the family and all questions were answered. ROS: Unable to asses due to patients baseline medical condition. Objective Physical Exam Notes: General Appearance: WD/WN, non responsive, patient is spontaneously moving his upper and lower extremities, patient does open the eyes and was eye tracking in the AM. Neck: supple Respiratory/Chest: Previous AM lungs were documented as clear, this was an error, lungs were coarse, lungs sound improved today in all lung valencia. Cardiovascular: no JVD, no murmur, no longer tachycardic, + irregularly irregular Abdomen: normal bowel sounds, non tender, soft, no hepatosplenomegaly appreciated. Extremities: + pertinent finding (Unable to wiggle toes or squeeze fingers to command.) Hands appear more edematous. Neurologic/Psychiatric: alert, + pertinent finding (Does not respond to commands at all including movies his upper or lower extremities, blinking on command, opening or closing mouth or turning his head on command. There is a decrease on spontaneous myoclonic jerking. Skin: no rash Assessment and Plan 86M with a PMHx of Pulmonary Fibrosis that was recently discharged from [facility] for a intracranial hemorrhage on 10/01/2017 - patient was at his baseline on his discharge - family denies any acute event (fall or trauma) after discharge. Pt was brought in and was non responsive in the ER. Patient continues to be encephalopathic. At present we believe he has neurological sequelae from his previous intracranial bleeds and this is a prolonged post ictal state. LP is contraindicated due to recent subdural hematoma. He was started on Depakote and we will continue this at present until post ictal / seizure activity resolves. NEURO Encephalopathy 2/2 Pneumonia vs Seizure vs Stroke This is unlikely from acute respiratory failure considering he has good saturations on oxygen and his ABG was relatively normal. Repeat Head CT Scans x 2 showed no evidence of an increasing hemorrhage. MRI contraindicated due to Pacemaker. X-ray today showed possible increasing pulmonary congestion. From a Neuro standpoint * Pt continues to require soft restraints for pulling at his IV lines. * EEG was non specific but abnormal. * Increase Depakote to 500mg IV q8h. Will add an additional 500mg now. * Check Depakote levels daily. * c/w Daily B12 IV and Thiamine. From an infectious standpoint we will continue to treat the patient has having a bilateral pneumonia. * Continue IV Vanc and Cefepime, with new renal dosing. Day #6 * We will continue empiric Acyclovir for possible herpetic encephalitis. Day #3 Recent intracranial bleeds * No evidence of worsening on CT Head x 2. * Hold Dilantin and Continue with Depakote as above. * Stress steroids, c/w hydrocortisone 100 mg IV every 8 hours. CV Pulmonary Congestion * X-ray showed stable pulm congestion, lungs sounded better than previous day. * Echo showed a severe decrease in LV function compared to echo in 2015, EF 30- 35%. * Continue to hold IVF. * Today one dose of IV Lasix 20mg. A Fib with RVR. * Now on Digoxin and IV Metoprolol 7.5mg TID. * Patient is presently on a Diltiazem Drip. * HR well controlled at present. Elevated Troponins * Elevated Troponins were likely demand ischemia. * Not a candidate for ASA or any heparin whatsoever due to IC bleed. * A Fib management as above. * Echo results as above. Resp Idiopathic Pulmonary Fibrosis * Patient is wearing an oxymask, correction from previous note, patient was on oxygen at home. 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 * Patient is 2L positive since admission. * Giving 20mg IV Lasix. GI * Started Coresafe Tube feeds today. * Dietary, Rosetta Diop, consulted, ext [phone]. ENDO * K+ and Mg corrected and normal. * Continue to monitor. * Continue with IV Levothyroxine 62mcg. DVT Proph * SCDS, not a candidate for AC due to recent IC bleeds. Dispo: Tele, continued complex medical issues, still unclear if baseline medical condition is reversible. DNR Resident Physician Supervision Note: I was present with resident physician during the history and exam. I discussed the case with the resident and agree with the findings and plan as documented in the note. He is again quite sedated upon my examination this morning, though he received a dose of morphine about one and half hours prior to my exam. He does open his eyes to my voice, and withdrawals to pain. He would not follow commands. I again discussed with family regarding the need for nourishment. They are okay with a NG tube placement for tube feedings. We did discuss the risk of aspirations and the precautions will take to minimize this risk. I'm hopeful that this will be a bridge until the patient is awake enough to tolerate oral feedings. PLAN 1) additional dose of Lasix 20 mg IV this morning; repeat chest x-ray in a.m. 2) rebolus of Depakote per neurology, with increased maintenance dose; Depakote level in a.m. 3) diltiazem drip has been discontinued; rate controlled is improved with intravenous digoxin and metoprolol. 4) NG tube placement and feedings per RD protocol Documented By: Camden Dennis Resident Involvement: Resident Care Provided Care Provided: Adult Hospital Medicine
[2017-10-08] MEDS ORDERED: FUROSEMIDE INJ 20 MG in SYRINGE 0 ML IV ONE (10:30)
[2017-10-08] MEDS ORDERED: VANCOMYCIN INJ 1,500 MG in SODIUM CHLORIDE 0.9% 500ML 500 ML IV ONE (12:15)
--- NOTE | 2017-10-08 13:15 | Pharmacy Progress Note ---
Pharmacy Abx Dose Short Note Date of Service Oct 08, 2017. Assessment & Plan Assessment 86 year old male receiving vanc,cefepime, and acyclovir for treatment of pneumonia. Cultures continue to be negative; CSF cx cancelled due to prior subdural hematoma. Chest x-ray continues to show infiltrates. Day # 6/7 of antimicrobial therapy for pnx. Plan Vancomycin * Random level of 19.8 mcg/mL is therapeutic following a single dose of 1500mg on day #6. * Continue dose of 1500 mg IV x 1 on 10/08. * Goal trough level for pnx : 17 to 20 mcg/mL * Random level ordered for: 10/09 @09 Will follow up with dosing tomorrow when random and renal fx are evaluated. Pharmacy will continue to follow and will adjust dose/frequency as necessary. Thank you.
--- NOTE | 2017-10-08 13:26 | DIAGNOSTIC IMAGING REPORT ---
KUB CLINICAL HISTORY: coresaf placement tube position COMPARISON STUDY: 01/06/2015 FINDINGS: Nonobstructive bowel pattern. Feeding tube mid stomach. Vascular catheter overlying the right sacrum. IMPRESSION: Core safe placed in the mid stomach The above report was generated using voice recognition software. It may contain grammatical, syntax or spelling errors. Electronically signed by: Angel Park M.D. 10/08/2017 1:24 PM Dictated Date/Time: 10/08/2017 1:24 PM
[2017-10-08] MEDS: VALPROATE SOD IV 500 MG in DEXTROSE 5% 50ML 50 ML IV SCH ×2 (14:10→21:43)
[2017-10-08] MEDS: PEPTAMEN 1.5 CAL 1000ML BAG NG SCH (15:05)
[2017-10-08] MEDS: DIGOXIN IV 125 MCG in SYRINGE 9.5 ML IV SCH (16:47)
[2017-10-08] MEDS: METOPROLOL TARTRATE 1 MG/ML VIAL IV PRN (22:31)
[2017-10-09] VITALS (12 sets, daily range): BP systolic 131–187; BP diastolic 67–95; PULSE 71–99; TEMP 36.4–36.7; O2SAT 92–98
[2017-10-09] MEDS: HYDROCORTISONE IV 100 MG in SYRINGE 0 ML IV SCH ×4 (00:13→23:46)
[2017-10-09] MEDS: METOPROLOL TARTRATE 1 MG/ML VIAL IV. SCH ×5 (00:14→23:46)
[2017-10-09] MEDS: ACETAMINOPHEN IV 100 ML IV PRN ×2 (00:14→07:58)
[2017-10-09] MEDS: LEVALBUTEROL 1.25MG/0.5ML NEB INH SCH ×4 (01:55→19:27)
[2017-10-09] MEDS: IPRATROPIUM BROMIDE NEB SOLN 0.02% 2.5 ML VIAL INH SCH ×4 (01:55→19:27)
[2017-10-09] MEDS ORDERED: NURSING VERBAL MED ORDER ONE ×2 (02:15→03:15)
[2017-10-09] MEDS ORDERED: HydrALAZINE HCL 20 MG/ML VIAL IV. ONE (02:45)
[2017-10-09] MEDS ORDERED: KETOROLAC TROMETHAMINE 15 MG/ML VIAL IV. ONE (03:30)
[2017-10-09 04:23] LABS: BASO % 0.1 %; BASO ABS # 0.02 K/uL (0-0.2); COMPLETE YES; HEMATOCRIT 37.8 % (42-52); IG% 1.3 %; LYMPH % 8.2 %; LYMPH ABS # 1.34 K/uL (1.2-3.4); MEAN CELL VOLUME 108.9 fL (80-100); MEAN CORPUSCULAR HEMOGLOBIN 35.4 pg (25-34); MEAN CORPUSCULAR HGB CONC 32.5 g/dl (32-36); MEAN PLATELET VOLUME 10.3 fL (7.4-10.4); MONO % 5.2 %; NEUT % 85.2 %; PLATELET COUNT 225 K/uL (130-400); RED BLOOD COUNT 3.47 M/uL (4.7-6.1); WHITE BLOOD COUNT 16.26 K/uL (4.8-10.8)
[2017-10-09 04:53] LABS: BUN/CREATININE RATIO 25.4 (10-20); CALCIUM 7.9 mg/dl (8.5-10.1); CREATININE 1.51 mg/dl (0.60-1.40); MAGNESIUM 2.8 mg/dl (1.8-2.4); POTASSIUM 3.1 mmol/L (3.5-5.1)
[2017-10-09 04:55] LABS: PHOSPHORUS 1.9 mg/dl (2.5-4.9)
[2017-10-09] MEDS: METOPROLOL TARTRATE 1 MG/ML VIAL IV PRN (05:00)
[2017-10-09] MEDS: ACYCLOVIR SOD INJ 750 MG in DEXTROSE 5% 250ML 250 ML IV SCH ×2 (06:52→18:20)
[2017-10-09] MEDS: CEFEPIME IV 1,000 MG in SYRINGE 0 ML IV SCH ×2 (07:27→20:35)
[2017-10-09] MEDS: THIAMINE HCL 100 MG/ML 2 ML VIAL IM SCH (07:30)
[2017-10-09] MEDS: CYANOCOBALAMIN 1000 MCG/ML VIAL IM SCH (07:33)
--- NOTE | 2017-10-09 09:21 | DIAGNOSTIC IMAGING REPORT ---
CHEST ONE VIEW PORTABLE CLINICAL HISTORY: Dyspnea. COMPARISON STUDY: Chest CT October 03, 2017 and chest radiograph October 08, 2017. FINDINGS: A single lead left subclavian pacemaker is unchanged in position. Tip of feeding tube projects over the body of the stomach. There is no pneumothorax. Trace bilateral pleural effusions are noted. Interstitial thickening with extensive bilateral airspace opacities persists. Stable cardiomegaly is noted. IMPRESSION: 1. Persistent interstitial thickening and extensive bilateral airspace opacities. The findings could reflect pneumonia or pulmonary edema superimposed upon interstitial lung disease. 2. Trace bilateral pleural effusions. Electronically signed by: Tony Desir M.D. 10/09/2017 9:20 AM Dictated Date/Time: 10/09/2017 9:17 AM
[2017-10-09] MEDS: LEVOTHYROXINE SODIUM IV SCH (09:35)
[2017-10-09] MEDS: FAMOTIDINE IV INJ 20 MG in SYRINGE 3 ML IV SCH ×2 (09:36→20:35)
[2017-10-09] MEDS ORDERED: LORAZEPAM 2 MG/ML 1 ML VIAL IV STA (09:43)
[2017-10-09] MEDS ORDERED: LORAZEPAM 2 MG/ML 1 ML VIAL ONE (09:46)
[2017-10-09] MEDS: VALPROATE SOD IV 500 MG in DEXTROSE 5% 50ML 50 ML IV SCH ×3 (10:36→20:35)
[2017-10-09] MEDS: VANCOMYCIN INJ 1,250 MG in SODIUM CHLORIDE 0.9% 250ML 250 ML IV SCH (11:52)
--- NOTE | 2017-10-09 15:24 | Family Medicine Progress Note ---
Progress Note Date of Service Oct 09, 2017. Subjective Pt evaluation today including: conversation w/ patient, conversation w/ family , physical exam, chart review, conversation w/ internet consultant, review of inpatient medication list PO Intake: poor Voiding: aguilera catheter in place Patient is non responsive to questioning Was pulling at IV lines and was combative in bed therefore soft restraints were ordered Daughter was at the bedside and was spoken to and questions answered appropriately Additional Comments: unable to obtain ROS as patient non responsive to my questions Medications Current Inpatient Medications Medications (Trade) Dose Ordered Sig/Chel Route Start Time Stop Time Status Last Admin Dose Admin Acetaminophen (Tylenol Tab) 650 mg Q4H PRN PO 10/03/17 20:15 11/02/17 20:14 Hydrocortisone Sodium Succinate 100 mg/Syringe 2 ml @ 4 mls/min Q8H IV 10/04/17 00:00 11/02/17 20:14 10/09/17 07:24 4 MLS/MIN Ondansetron HCl (Zofran Inj) 4 mg Q6H PRN IV 10/03/17 20:15 11/02/17 20:14 Acetaminophen 100 ml @ 400 mls/hr Q8H PRN IV 10/03/17 20:15 11/02/17 20:14 10/09/17 07:58 400 MLS/HR Ipratropium [place] (Atrovent 0.02% 0.5MG/2.5ML Neb) 0.5 mg Q6R INH 10/04/17 03:00 11/03/17 02:59 10/09/17 13:45 0.5 MG Levalbuterol (Xopenex 1.25MG/ 0.5ML Neb) 1.25 mg Q6R INH 10/04/17 03:00 11/03/17 02:59 10/09/17 13:45 1.25 MG Vancomycin HCl (Consult) 1 ea UD PRN N/A 10/03/17 22:15 11/02/17 22:14 Famotidine 20 mg/ Syringe 5 ml @ 2.5 mls/min Q12 IV 10/03/17 23:00 11/02/17 22:59 10/09/17 09:36 2.5 MLS/MIN Metoprolol Tartrate (Lopressor Iv) 5 mg Q4 PRN IV 10/04/17 00:00 11/03/17 00:00 10/09/17 05:00 5 MG Heparin Sodium (Porcine) (Heparin 10 Unit/ ml 5 ml Flush) 5 ml PRN PRN FLUSH 10/04/17 00:45 11/03/17 00:44 10/04/17 04:06 5 ML Levothyroxine Sodium 62 mcg/ Syringe 3.1 ml @ 2 mls/min DAILY@09 IV 10/04/17 09:00 11/03/17 08:59 10/09/17 09:35 2 MLS/MIN Diltiazem HCl 125 mg/Dextrose 125 ml @ 0 mls/hr Q0M PRN IV 10/05/17 06:15 11/04/17 06:14 10/07/17 05:19 15 MLS/HR Cefepime HCl (Consult) 1 ea UD PRN N/A 10/05/17 12:00 11/04/17 11:59 Acyclovir Sodium 750 mg/Dextrose 265 ml @ 250 mls/hr Q12H IV 10/05/17 19:00 10/15/17 18:59 10/09/17 06:52 250 MLS/HR Parenteral Electrolyte Solution 1,000 ml @ 80 mls/hr [id number] IV 10/05/17 17:30 11/04/17 17:29 Future Hold 10/07/17 15:18 80 MLS/HR Acyclovir Sodium (Consult) 1 ea UD PRN N/A 10/05/17 18:15 11/04/17 18:14 Cefepime HCl 1000 mg/Syringe 11 ml @ 5.5 mls/min Q12H IV 10/06/17 20:00 10/10/17 23:59 10/09/17 07:27 5.5 MLS/MIN Thiamine HCl (Vitamin B-1 Inj) 100 mg QAM IM 10/07/17 09:00 11/06/17 08:59 10/09/17 07:30 100 MG Cyanocobalamin (Vitamin B-12 Inj) 1,000 mcg DAILY IM 10/08/17 09:00 10/13/17 08:59 10/09/17 07:33 1,000 MCG Valproate Sodium 500 mg/Dextrose 55 ml @ 55 mls/hr TID IV 10/08/17 14:00 11/07/17 13:59 12/9/17 14:34 55 MLS/HR Digoxin 125 mcg/ Syringe 10 ml @ 2 mls/min DAILY@16 IV 10/08/17 16:00 11/07/17 15:59 10/08/17 16:47 2 MLS/MIN Metoprolol Tartrate (Lopressor Iv) 7.5 mg Q6 IV. 10/08/17 12:00 11/07/17 11:59 10/09/17 11:57 7.5 MG Enteral Nutritional Formula (Peptamen 1.5) 1,000 ml UD NG 10/08/17 11:00 11/07/17 10:59 10/08/17 15:05 1,000 ML Vancomycin HCl 1250 mg/Sodium Chloride 275 ml @ 125 mls/hr Q24H IV 10/09/17 12:00 10/13/17 11:59 10/09/17 11:52 125 MLS/HR Objective Vital Signs Date Time Temp Pulse Resp B/P (MAP) Pulse Ox O2 Delivery O2 Flow Rate FiO2 10/09/17 13:45 71 22 95 Mask 8.0 10/09/17 12:00 Mask 10.0 10/09/17 11:58 36.4 93 26 131/76 (94) 96 Oxymask 10.0 10/09/17 11:57 74 10/09/17 08:00 Mask 10.0 10/09/17 07:40 36.7 93 24 164/77 (106) 92 Oxymask 10.0 10/09/17 06:53 88 24 93 Mask 8.0 10/09/17 06:29 102 178/88 10/09/17 05:00 132 168/90 10/09/17 04:00 Mask 15.0 10/09/17 03:00 159/84 (109) 10/09/17 01:55 93 24 94 Mask 8.0 10/09/17 01:35 187/95 (125) 10/09/17 00:14 108 189/105 10/08/17 23:59 Mask 15.0 10/08/17 23:26 36.5 108 18 189/105 (133) 94 Oxymask 8.0 10/08/17 22:31 125 176/113 10/08/17 20:00 Mask 15.0 10/08/17 19:20 36.3 98 26 176/89 (118) 95 Mask 15.0 10/08/17 19:13 102 24 95 Mask 8.0 10/08/17 17:27 125 10/08/17 16:47 105 10/08/17 16:00 37.4 106 18 150/79 (102) 90 Oxymask 8.0 10/08/17 16:00 Mask 8.0 Physical Exam General Appearance: + mild distress, + pertinent finding (patient was agitated and pulling at IV lines) Eyes: normal inspection, PERRL, sclerae normal, + pertinent finding (patient with eyes open) Neck: + pertinent finding (unable to assess as patient moving around in bed) Respiratory/Chest: chest non-tender, no accessory muscle use, + decreased breath sounds (at the bases), + rhonchi (bilateral throughout) Cardiovascular: regular rate, rhythm, no murmur Abdomen: normal bowel sounds, non tender, soft Extremities: normal inspection, no pedal edema, no calf tenderness Neurologic/Psychiatric: + disoriented, + pertinent finding (patient did not listen to instructions, did not squeeze finger, wiggle toes or respond to questioning) Skin: normal color, warm/dry, no rash Laboratory Results Results Past 24 Hours Test 10/09/17 00:18 10/09/17 04:03 10/09/17 05:57 10/09/17 08:54 Range/Units Bedside Glucose 143 176 70-99 mg/dl White Blood Count 16.26 4.8-10.8 K/uL Red Blood Count 3.47 4.7-6.1 M/uL Hemoglobin 12.3 14.0-18.0 g/dL Hematocrit 37.8 42-52 % Mean Corpuscular Volume 108.9 80-100 fL Mean Corpuscular Hemoglobin 35.4 25-34 pg Mean Corpuscular Hemoglobin Concent 32.5 32-36 g/dl Platelet Count 225 130-400 K/uL Mean Platelet Volume 10.3 7.4-10.4 fL Neutrophils (%) (Auto) 85.2 % Lymphocytes (%) (Auto) 8.2 % Monocytes (%) (Auto) 5.2 % Eosinophils (%) (Auto) 0.0 % Basophils (%) (Auto) 0.1 % Neutrophils # (Auto) 13.84 1.4-6.5 K/uL Lymphocytes # (Auto) 1.34 1.2-3.4 K/uL Monocytes # (Auto) 0.85 0.11-0.59 K/uL Eosinophils # (Auto) 0.00 0-0.5 K/uL Basophils # (Auto) 0.02 0-0.2 K/uL RDW Standard Deviation 52.4 36.4-46.3 fL RDW Coefficient of Variation 13.3 11.5-14.5 % Immature Granulocyte % (Auto) 1.3 % Immature Granulocyte # (Auto) 0.21 0.00-0.02 K/uL Sodium Level 146 136-145 mmol/L Potassium Level 3.1 3.5-5.1 mmol/L Chloride Level 109 98-107 mmol/L Carbon Dioxide Level 31 21-32 mmol/L Anion Gap 6.0 3-11 mmol/L Blood Urea Nitrogen 38 7-18 mg/dl Creatinine 1.51 0.60-1.40 mg/dl Est Creatinine Clear Calc Drug Dose 35.6 ml/min Estimated GFR () 47.8 Estimated GFR (Non- 41.2 BUN/Creatinine Ratio 25.4 10-20 Random Glucose 153 70-99 mg/dl Calcium Level 7.9 8.5-10.1 mg/dl Phosphorus Level 1.9 2.5-4.9 mg/dl Magnesium Level 2.8 1.8-2.4 mg/dl Valproic Acid (Depakene) Level 56 50-100 mcg/ml Random Vancomycin Level 20.5 mcg/ml Assessment and Plan 86M with a PMHx of Pulmonary Fibrosis that [place] [facility] [place] a [place] - patient was at his baseline on his discharge - family denies any acute event (fall or trauma) after discharge. Pt was brought in and was non responsive in the ER. Patient continues to be encephalopathic. At present we believe he has neurological sequelae from his previous intracranial bleeds and this is a prolonged post ictal state. LP is contraindicated due to recent subdural hematoma. He was started on Depakote and we will continue this at present until post ictal / seizure activity resolves. Patient was tachycardic this morning and was given a dose of ativan which controlled his rates and has made the patient less combative Encephalopathy 2/2 Pneumonia vs Seizure vs Stroke From a Neuro standpoint * Pt continues to require soft restraints for pulling at his IV lines. * EEG was non specific but abnormal. * Depakote at 500mg IV q8h * Check Depakote levels daily. and within therapeutic range today * c/w Daily B12 IV and Thiamine. From an infectious standpoint we will continue to treat the patient has having a bilateral pneumonia. * Continue IV Vanc and Cefepime, with new renal dosing. Day #7 * We will continue empiric Acyclovir for possible herpetic encephalitis. Day #4 Recent intracranial bleeds * No evidence of worsening on CT Head x 2. * Hold Dilantin and Continue with Depakote as above. * Stress steroids, c/w hydrocortisone 100 mg IV every 8 hours. CV Pulmonary Congestion * X-ray showed persistent bilateral airspace opacities * Echo showed a severe decrease in LV function compared to echo in 2015, EF 30- 35%. * Continue to hold IVF. A Fib with RVR. * Now on Digoxin and IV Metoprolol 7.5mg q6hr * Patients dilt drip has been stopped and patients rates have been adequate * HR well controlled at present. Elevated Troponins * Elevated Troponins were likely demand ischemia. * Not a candidate for ASA or any heparin whatsoever due to IC bleed. * A Fib management as above. * Echo results as above. 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 * Given 20mg lasix yesterday. GI * Started C[employer]afe Tube feeds yesterday * Continous feeds with goal of 60ml/hr * Dietary, Rosetta Diop, consulted, ext [phone]. * Potassium 3.1 and phos 1.9, will call Rosetta and ask to alter tube feeds for supplementation ENDO * K=3.1 and Phos 1.9 * Continue to monitor. * Continue with IV Levothyroxine 62mcg. DVT Proph * SCDS, not a candidate for AC due to recent IC bleeds. Dispo: Tele, continued complex medical issues, still unclear if baseline medical condition is reversible. DNR Resident Physician Supervision Note: I interviewed and examined the patient. Discussed with Dr. Gross and agree with findings and plan as documented in the note. Mr. Roberson was fairly agitated this morning; restless in bed, requiring 1:1 for his safety in terms of getting in bed and pulling out lines. Soft restraints were restarted. Upon my exam, he would look at me when I called his name; he did seem to focus for short period of time, but then would resume his restlessness. He was medicated with Ativan 1 mg IV; this helped decrease his restlessness, and subsequently his heart rate fell from the 110s into the 70s to 80s. Depakote level and low normal range; discuss with neurology we'll continue current dosing and recheck level in AM. No witnessed seizure activity. Documented By: Camden Dennis Continued [facility] stay due to: multiple IV medications needed Discharge planning: uncertain
[2017-10-09] MEDS: DIGOXIN IV 125 MCG in SYRINGE 9.5 ML IV SCH (16:29)
[2017-10-09] MEDS: LORAZEPAM 2 MG/ML 1 ML VIAL IV PRN ×2 (16:45→22:42)
[2017-10-09] MEDS ORDERED: POTASSIUM CHLR 20 MEQ / WTR 20 MEQ in PREMIXED WATER 100 ML IV STA (17:37)
[2017-10-10] VITALS (11 sets, daily range): BP systolic 131–203; BP diastolic 70–106; PULSE 84–127; TEMP 36.7–37.1; O2SAT 93–95
[2017-10-10] MEDS: LEVALBUTEROL 1.25MG/0.5ML NEB INH SCH ×3 (02:04→18:45)
[2017-10-10] MEDS: IPRATROPIUM BROMIDE NEB SOLN 0.02% 2.5 ML VIAL INH SCH ×3 (02:04→18:45)
[2017-10-10] MEDS ORDERED: NURSING VERBAL MED ORDER ONE ×2 (03:00→17:45)
[2017-10-10] MEDS: ACETAMINOPHEN IV 100 ML IV PRN ×2 (03:05→10:44)
[2017-10-10] MEDS ORDERED: LORAZEPAM 2 MG/ML 1 ML VIAL IV STA (03:11)
[2017-10-10] MEDS: METOPROLOL TARTRATE 1 MG/ML VIAL IV PRN (03:24)
[2017-10-10 05:13] LABS: BASO % 0.2 %; BASO ABS # 0.02 K/uL (0-0.2); COMPLETE YES; HEMATOCRIT 36.6 % (42-52); IG% 1.1 %; LYMPH % 5.8 %; LYMPH ABS # 0.75 K/uL (1.2-3.4); MEAN CELL VOLUME 108.9 fL (80-100); MEAN CORPUSCULAR HEMOGLOBIN 35.4 pg (25-34); MEAN CORPUSCULAR HGB CONC 32.5 g/dl (32-36); MEAN PLATELET VOLUME 10.2 fL (7.4-10.4); MONO % 6.4 %; NEUT % 86.5 %; PLATELET COUNT 232 K/uL (130-400); RED BLOOD COUNT 3.36 M/uL (4.7-6.1); WHITE BLOOD COUNT 13.01 K/uL (4.8-10.8)
[2017-10-10 05:37] LABS: BUN/CREATININE RATIO 31.8 (10-20); CALCIUM 7.7 mg/dl (8.5-10.1); CREATININE 1.35 mg/dl (0.60-1.40); MAGNESIUM 2.9 mg/dl (1.8-2.4); PHOSPHORUS 2.2 mg/dl (2.5-4.9); POTASSIUM 3.8 mmol/L (3.5-5.1)
[2017-10-10] MEDS: ACYCLOVIR SOD INJ 750 MG in DEXTROSE 5% 250ML 250 ML IV SCH ×2 (06:06→18:04)
[2017-10-10] MEDS: METOPROLOL TARTRATE 1 MG/ML VIAL IV. SCH ×3 (06:10→18:20)
--- NOTE | 2017-10-10 07:29 | DIAGNOSTIC IMAGING REPORT ---
CHEST ONE VIEW PORTABLE HISTORY: 86 years-old Male pulm edema acute respiratory failure. Follow-up study in a patient with pulmonary edema COMPARISON: Chest radiograph 10/09/2017, CTA of the chest 10/03/2017 TECHNIQUE: Portable AP view of the chest FINDINGS: Cardiac silhouette is again moderately enlarged. Enteric tube courses below the diaphragm with distal tip outside the [id number]. Left pectoral pacer is unchanged. There is no pneumothorax. Blunting of the costophrenic angles suggests trace effusions. Bilateral mixed interstitial and alveolar opacities are again noted with mildly improved aeration of the right lung base. Bones of the chest appear grossly intact. IMPRESSION: 1. Cardiomegaly with persistent mixed interstitial and alveolar opacities suggesting pulmonary edema with superimposed pneumonia difficult to exclude. Mildly improved aeration of the right lung base from prior. 2. Chronic interstitial lung disease. The above report was generated using voice recognition software. It may contain grammatical, syntax or spelling errors. Electronically signed by: Jose Beavers M.D. 10/10/2017 7:27 AM Dictated Date/Time: 10/10/2017 7:24 AM
[2017-10-10] MEDS: HYDROCORTISONE IV 100 MG in SYRINGE 0 ML IV SCH (08:18)
[2017-10-10] MEDS: CEFEPIME IV 1,000 MG in SYRINGE 0 ML IV SCH ×2 (08:18→20:41)
[2017-10-10] MEDS: CYANOCOBALAMIN 1000 MCG/ML VIAL IM SCH (08:19)
[2017-10-10] MEDS: VALPROATE SOD IV 500 MG in DEXTROSE 5% 50ML 50 ML IV SCH ×3 (08:22→20:41)
[2017-10-10] MEDS: FAMOTIDINE IV INJ 20 MG in SYRINGE 3 ML IV SCH ×2 (08:25→20:41)
[2017-10-10] MEDS: LORAZEPAM 2 MG/ML 1 ML VIAL IV PRN ×3 (09:38→22:48)
[2017-10-10] MEDS ORDERED: FUROSEMIDE INJ 20 MG in SYRINGE 0 ML IV SCH (10:15)
--- NOTE | 2017-10-10 10:27 | Family Medicine Progress Note ---
Progress Note Date of Service Oct 10, 2017. Subjective Pt evaluation today including: conversation w/ patient, conversation w/ family , physical exam, chart review, lab review, conversation w/ client experience consultant PO Intake: tube feeds Voiding: aguilera catheter in place Patient continues to be combative at bedside, Has soft restraints in place. No acute events overnight, he became tachycardic once again overnight but remained afebrile Was given another 0.5mg of ativan this morning which calmed him down Nurse noted that he has had a few PVC's this morning Additional Comments: Unable to obtain ROS as patient is non responsive to questioning Medications Current Inpatient Medications Medications (Trade) Dose Ordered Sig/Chel Route Start Time Stop Time Status Last Admin Dose Admin Acetaminophen (Tylenol Tab) 650 mg Q4H PRN PO 10/03/17 20:15 11/02/17 20:14 Hydrocortisone Sodium Succinate 100 mg/Syringe 2 ml @ 4 mls/min Q8H IV 10/04/17 00:00 11/02/17 20:14 10/10/17 08:18 4 MLS/MIN Ondansetron HCl (Zofran Inj) 4 mg Q6H PRN IV 10/03/17 20:15 11/02/17 20:14 Acetaminophen 100 ml @ 400 mls/hr Q8H PRN IV 10/03/17 20:15 11/02/17 20:14 10/10/17 03:05 400 MLS/HR Ipratropium [place] (Atrovent 0.02% 0.5MG/2.5ML Neb) 0.5 mg Q6R INH 10/04/17 03:00 11/03/17 02:59 10/10/17 06:58 0.5 MG Levalbuterol (Xopenex 1.25MG/ 0.5ML Neb) 1.25 mg Q6R INH 10/04/17 03:00 11/03/17 02:59 10/10/17 06:58 1.25 MG Vancomycin HCl (Consult) 1 ea UD PRN N/A 10/03/17 22:15 11/02/17 22:14 Famotidine 20 mg/ Syringe 5 ml @ 2.5 mls/min Q12 IV 10/03/17 23:00 11/02/17 22:59 10/10/17 08:25 2.5 MLS/MIN Metoprolol Tartrate (Lopressor Iv) 5 mg Q4 PRN IV 10/04/17 00:00 11/03/17 00:00 10/10/17 03:24 5 MG Heparin Sodium (Porcine) (Heparin 10 Unit/ ml 5 ml Flush) 5 ml PRN PRN FLUSH 10/04/17 00:45 11/03/17 00:44 10/04/17 04:06 5 ML Levothyroxine Sodium 62 mcg/ Syringe 3.1 ml @ 2 mls/min DAILY@09 IV 10/04/17 09:00 11/03/17 08:59 10/09/17 09:35 2 MLS/MIN Diltiazem HCl 125 mg/Dextrose 125 ml @ 0 mls/hr Q0M PRN IV 10/05/17 06:15 11/04/17 06:14 10/07/17 05:19 15 MLS/HR Cefepime HCl (Consult) 1 ea UD PRN N/A 10/05/17 12:00 11/04/17 11:59 Acyclovir Sodium 750 mg/Dextrose 265 ml @ 250 mls/hr Q12H IV 10/05/17 19:00 10/15/17 18:59 10/10/17 06:06 250 MLS/HR Parenteral Electrolyte Solution 1,000 ml @ 80 mls/hr [id number] IV 10/05/17 17:30 11/04/17 17:29 Future Hold 10/07/17 15:18 80 MLS/HR Acyclovir Sodium (Consult) 1 ea UD PRN N/A 10/05/17 18:15 11/04/17 18:14 Cefepime HCl 1000 mg/Syringe 11 ml @ 5.5 mls/min Q12H IV 10/06/17 20:00 10/10/17 23:59 10/10/17 08:18 5.5 MLS/MIN Thiamine HCl (Vitamin B-1 Inj) 100 mg QAM IM 10/07/17 09:00 11/06/17 08:59 10/09/17 07:30 100 MG Cyanocobalamin (Vitamin B-12 Inj) 1,000 mcg DAILY IM 10/08/17 09:00 10/13/17 08:59 10/10/17 08:19 1,000 MCG Valproate Sodium 500 mg/Dextrose 55 ml @ 55 mls/hr TID IV 10/08/17 14:00 11/07/17 13:59 10/10/17 08:22 55 MLS/HR Digoxin 125 mcg/ Syringe 10 ml @ 2 mls/min DAILY@16 IV 10/08/17 16:00 11/07/17 15:59 10/09/17 16:29 2 MLS/MIN Metoprolol Tartrate (Lopressor Iv) 7.5 mg Q6 IV. 10/08/17 12:00 11/07/17 11:59 10/10/17 06:10 7.5 MG Enteral Nutritional Formula (Peptamen 1.5) 1,000 ml UD NG 10/08/17 11:00 11/07/17 10:59 10/08/17 15:05 1,000 ML Vancomycin HCl 1250 mg/Sodium Chloride 275 ml @ 125 mls/hr Q24H IV 10/09/17 12:00 10/13/17 11:59 10/09/17 11:52 125 MLS/HR Lorazepam (Ativan Inj) 1 mg Q6H PRN IV 10/09/17 16:45 11/08/17 16:44 10/10/17 09:38 1 MG Objective Vital Signs Date Time Temp Pulse Resp B/P (MAP) Pulse Ox O2 Delivery O2 Flow Rate FiO2 10/10/17 08:28 36.9 123 24 189/99 (129) 94 10/10/17 06:59 99 26 94 Mask 8.0 10/10/17 06:10 98 156/71 10/10/17 04:16 36.8 114 28 172/106 (128) 95 Room Air 8.0 Oxymask 10/10/17 04:00 Mask 8.0 10/10/17 03:24 124 172/106 10/10/17 02:06 108 28 95 Mask 8.0 10/09/17 23:59 Mask 8.0 10/09/17 23:46 123 166/87 10/09/17 23:05 36.7 99 20 166/87 (113) 94 Oxymask 8.0 10/09/17 20:10 36.7 75 18 136/67 (90) 97 Oxymask 6.0 10/09/17 20:00 Mask 6.0 10/09/17 19:27 78 20 98 Mask 9.0 10/09/17 18:50 135/67 (89) 10/09/17 18:10 74 10/09/17 16:29 109 10/09/17 16:00 Mask 10.0 10/09/17 15:58 36.7 97 22 185/83 (117) 93 Oxymask 9.0 10/09/17 13:45 71 22 95 Mask 8.0 10/09/17 12:00 Mask 10.0 10/09/17 11:58 36.4 93 26 131/76 (94) 96 Oxymask 10.0 10/09/17 11:57 74 Physical Exam General Appearance: + mild distress, + pertinent finding (patient with soft restraints and is thrashing and moaning in bed) Eyes: PERRL, sclerae normal ENT: + pertinent finding (mouth appears dry) Neck: no JVD, no carotid bruits Respiratory/Chest: chest non-tender, no accessory muscle use, + rhonchi ( diffuse rhonchi bilaterally) Cardiovascular: regular rate, rhythm, no edema, no murmur Abdomen: normal bowel sounds, soft, + tenderness (mild diffuse tenderness to deep palpation) Extremities: non-tender, no pedal edema, normal capillary refill Neurologic/Psychiatric: + disoriented Skin: normal color, no rash, + diaphoresis Laboratory Results Results Past 24 Hours Test 10/09/17 19:09 10/10/17 00:13 10/10/17 04:55 10/10/17 06:02 Range/Units Bedside Glucose 201 189 235 70-99 mg/dl White Blood Count 13.01 4.8-10.8 K/uL Red Blood Count 3.36 4.7-6.1 M/uL Hemoglobin 11.9 14.0-18.0 g/dL Hematocrit 36.6 42-52 % Mean Corpuscular Volume 108.9 80-100 fL Mean Corpuscular Hemoglobin 35.4 25-34 pg Mean Corpuscular Hemoglobin Concent 32.5 32-36 g/dl Platelet Count 232 130-400 K/uL Mean Platelet Volume 10.2 7.4-10.4 fL Neutrophils (%) (Auto) 86.5 % Lymphocytes (%) (Auto) 5.8 % Monocytes (%) (Auto) 6.4 % Eosinophils (%) (Auto) 0.0 % Basophils (%) (Auto) 0.2 % Neutrophils # (Auto) 11.27 1.4-6.5 K/uL Lymphocytes # (Auto) 0.75 1.2-3.4 K/uL Monocytes # (Auto) 0.83 0.11-0.59 K/uL Eosinophils # (Auto) 0.00 0-0.5 K/uL Basophils # (Auto) 0.02 0-0.2 K/uL RDW Standard Deviation 53.7 36.4-46.3 fL RDW Coefficient of Variation 13.6 11.5-14.5 % Immature Granulocyte % (Auto) 1.1 % Immature Granulocyte # (Auto) 0.14 0.00-0.02 K/uL Nucleated RBC Absolute Count (auto) 0.06 0-0 K/uL Nucleated Red Blood Cells % 0.5 % Erythrocyte Sedimentation Rate 4 0-14 mm/hr Sodium Level 147 136-145 mmol/L Potassium Level 3.8 3.5-5.1 mmol/L Chloride Level 113 98-107 mmol/L Carbon Dioxide Level 32 21-32 mmol/L Anion Gap 2.0 3-11 mmol/L Blood Urea Nitrogen 43 7-18 mg/dl Creatinine 1.35 0.60-1.40 mg/dl Est Creatinine Clear Calc Drug Dose 39.1 ml/min Estimated GFR () 54.7 Estimated GFR (Non- 47.2 BUN/Creatinine Ratio 31.8 10-20 Random Glucose 204 70-99 mg/dl Calcium Level 7.7 8.5-10.1 mg/dl Phosphorus Level 2.2 2.5-4.9 mg/dl Magnesium Level 2.9 1.8-2.4 mg/dl Procalcitonin 0.16 0-0.5 ng/ml Test 10/10/17 08:43 Range/Units Valproic Acid (Depakene) Level 43 50-100 mcg/ml Assessment and Plan 86M with a PMHx of Pulmonary Fibrosis that [place] [facility] [place] a [place] - patient was at his baseline on his discharge - family denies any acute event (fall or trauma) after discharge. Pt was brought in and was non responsive in the ER. Patient continues to be encephalopathic. At present we believe he has neurological sequelae from his previous intracranial bleeds and this is a prolonged post ictal state. LP is contraindicated due to recent subdural hematoma. He was started on Depakote and we will continue this at present until post ictal / seizure activity resolves. Patient was tachycardic again this morning and has remained combative , given a .6mg IV ativan dose Encephalopathy 2/2 Pneumonia vs Seizure vs Stroke From a Neuro standpoint * Pt continues to require soft restraints for pulling at his IV lines. * EEG was non specific but abnormal. * Depakote at 500mg IV q8h * Check Depakote levels daily level subtherapeutic today at 43. Will talk to Dr. Dennis about dosage * c/w Daily B12 IV and Thiamine. From an infectious standpoint we will continue to treat the patient has having a bilateral pneumonia. * Continue IV Vanc and Cefepime, with new renal dosing. Day #8/10 * We will continue empiric Acyclovir for possible herpetic encephalitis. Day #5 Recent intracranial bleeds * No evidence of worsening on CT Head x 2. * Hold Dilantin and Continue with Depakote as above. * Stress steroids, c/w hydrocortisone 100 mg IV every 8 hours----> will decrease to 80mg IV q8 CV Pulmonary Congestion * X-ray showed persistent bilateral airspace opacities * Echo showed a severe decrease in LV function compared to echo in 2015, EF 30- 35%. * Continue to hold IVF. * will administer one time dose of 20mg lasix A Fib with RVR. * Now on Digoxin and IV Metoprolol 7.5mg q6hr * Patients dilt drip has been stopped and patients rates have been elevated, ativan has been controlling rates, being given 0.5mg Elevated Troponins * Elevated Troponins were likely demand ischemia. * Not a candidate for ASA or any heparin whatsoever due to IC bleed. * A Fib management as above. * Echo results as above. Resp Idiopathic Pulmonary Fibrosis * Patient is wearing an oxymask * Patient wears oxygen at home Renal Acute Kidney Injury on CKD Stage 2: * Creatinine 1.9-->1.6-->1.24-->1.46--->1.51--->1.35 * Patient is 2L positive since admission. GI * Started C[employer]afe Tube feeds * Continous feeds with goal of 60ml/hr * Dietary, Rosetta Diop, consulted, ext [phone]. * Potassium 3.8 and phos 2.2, will call Rosetta and ask to alter tube feeds for supplementation ENDO * K=3.8 and Phos 2.2 * Patient given 20meq Potassium chloride in central line yesterday * Continue to monitor. * Continue with IV Levothyroxine 62mcg. TSH =1.91 DVT Proph * SCDS, not a candidate for AC due to recent IC bleeds. Dispo: Tele, continued complex medical issues, still unclear if baseline medical condition is reversible. DNR Resident Physician Supervision Note: I interviewed and examined the patient. Discussed with Dr. Gross and agree with findings and plan as documented in the note. 86-year-old male with long-standing history of pulmonary fibrosis, seizure disorder, and recent head injury with subdural hematoma was admitted with mental status change. He had significant myoclonic activity with abnormal EEG, and his outpatient Dilantin level was subtherapeutic. He was loaded with IV Depakote and his myoclonic movements subsided. The patient then had extended - almost 24 hours - of decreased responsiveness/sleep, and now alternates between periods of sleeping and delirium/agitation. I had a long discussion today with the family regarding goals of care. They realize his rather fragile underlying health - he was actually considered for hospice 5 years ago due to his chronic lung disease. At this point, we would not advance care should his condition worsen; he is a DO NOT RESUSCITATE, and furthermore, if he would develop hemodynamic instability we would not initiate more aggressive care such as pressor medications. He is certainly less agitated with IV Ativan, although this does make him sleepy and limits neuro examination. I do not sense that he is any pain at this time. Plan going forward 1) continue IV Depakote; appreciate neurology input 2) complete 10 day course of antibiotics and IV acyclovir 3) continue NG tube feedings 4) adjust Lasix based on urine output and daily chest x-ray 5) his heart rate is increased with periods of agitation; if it is not responding to treat with agitation, could increase IV beta blockers or restart diltiazem drip. 6) his anticoagulation is on hold secondary to his recent subdural bleed 7) Taper IV hydrocortisone (stress dose); glycemic consult added today. 8) DO NOT RESUSCITATE 9) do not pursue more aggressive medical management should he begin to decompensate in terms of his respiratory or cardiac status Documented By: Camden Dennis Continued [facility] stay due to: multiple IV medications needed Discharge planning: uncertain
[2017-10-10] MEDS: THIAMINE HCL 100 MG/ML 2 ML VIAL IM SCH (10:38)
[2017-10-10] MEDS: LEVOTHYROXINE SODIUM IV SCH (10:38)
[2017-10-10] MEDS: VANCOMYCIN INJ 1,250 MG in SODIUM CHLORIDE 0.9% 250ML 250 ML IV SCH (11:55)
--- NOTE | 2017-10-10 14:54 | Pharmacy Progress Note ---
Pharmacy Abx Dose Short Note Date of Service Oct 10, 2017. Assessment & Plan Assessment 86 year old male receiving Vancomycin, Cefepime for treatment of Pneumonia. Also , receiving acyclovir 750mg IV q12hrs. CSF cx cancelled due to prior subdural hematoma. Day # 8 of antimicrobial therapy. Plan Vancomycin * Trough level of 20.5 mcg/mL is supratherapeutic on 10/09 @08:54. Patient had been receiving intermittent dosing secondary to changing renal function. * Dosing changed to 1,500 mg IV every 24 hours beginning 10/09/17. * Goal trough level for Pulmonary : 15 to 20 mcg/mL * Trough or random level ordered for: 10/11/17 @ 11:[address] on hold until level evaluated by pharmacist. Pharmacy will continue to follow and will adjust dose/frequency as necessary. Thank you.
[2017-10-10] MEDS: DIGOXIN IV 125 MCG in SYRINGE 9.5 ML IV SCH (16:03)
[2017-10-10] MEDS: HYDROCORTISONE IV SCH (16:03)
[2017-10-10] MEDS: PEPTAMEN 1.5 CAL 1000ML BAG NG SCH (16:51)
[2017-10-10] MEDS ORDERED: FUROSEMIDE INJ 20 MG in SYRINGE 0 ML IV ONE (18:00)
[2017-10-10] MEDS ORDERED: LORAZEPAM 2 MG/ML 1 ML VIAL IV PRN (18:00)
[2017-10-10] MEDS: MoRPHine SULFATE 2 MG/ML CARP IV PRN ×2 (18:08→22:26)
[2017-10-10] MEDS: INSULIN ASPART 100 UNITS/ML 3 ML PEN SC SCH (18:27)
[2017-10-11] VITALS (7 sets, daily range): BP systolic 163–183; BP diastolic 77–90; PULSE 78–100; TEMP 36.3–37.1; O2SAT 90–96
[2017-10-11] MEDS: HYDROCORTISONE IV SCH ×2 (00:37→09:17)
[2017-10-11] MEDS: METOPROLOL TARTRATE 1 MG/ML VIAL IV. SCH ×3 (00:37→12:27)
[2017-10-11] MEDS: INSULIN ASPART 100 UNITS/ML 3 ML PEN SC SCH ×3 (00:40→12:29)
[2017-10-11] MEDS: IPRATROPIUM BROMIDE NEB SOLN 0.02% 2.5 ML VIAL INH SCH ×2 (01:28→07:05)
[2017-10-11] MEDS: LEVALBUTEROL 1.25MG/0.5ML NEB INH SCH ×2 (01:28→07:05)
[2017-10-11] MEDS ORDERED: LORAZEPAM 2 MG/ML 1 ML VIAL IV STA (01:49)
[2017-10-11] MEDS ORDERED: HALOPERIDOL LACTATE 5 MG/ML 1 ML VIAL IM PRN (02:00)
[2017-10-11] MEDS: MoRPHine SULFATE 2 MG/ML CARP IV PRN ×4 (03:08→15:53)
[2017-10-11] MEDS ORDERED: MoRPHine SULFATE 2 MG/ML CARP IV STA (03:47)
[2017-10-11] MEDS: ACYCLOVIR SOD INJ 750 MG in DEXTROSE 5% 250ML 250 ML IV SCH (05:45)
[2017-10-11 06:28] LABS: BASO % 0.1 %; BASO ABS # 0.01 K/uL (0-0.2); EOS % 0.1 %; HEMATOCRIT 37.7 % (42-52); IG% 1.5 %; LYMPH % 7.9 %; LYMPH ABS # 1.05 K/uL (1.2-3.4); MEAN CELL VOLUME 110.9 fL (80-100); MEAN CORPUSCULAR HEMOGLOBIN 35.3 pg (25-34); MEAN CORPUSCULAR HGB CONC 31.8 g/dl (32-36); MEAN PLATELET VOLUME 10.7 fL (7.4-10.4); MONO % 7.4 %; PLATELET COUNT 257 K/uL (130-400); WHITE BLOOD COUNT 13.29 K/uL (4.8-10.8)
[2017-10-11 07:06] LABS: BUN/CREATININE RATIO 31.6 (10-20); CALCIUM 8.1 mg/dl (8.5-10.1); CREATININE 1.31 mg/dl (0.60-1.40); MAGNESIUM 2.7 mg/dl (1.8-2.4); POTASSIUM 3.6 mmol/L (3.5-5.1)
[2017-10-11 07:07] LABS: PHOSPHORUS 2.3 mg/dl (2.5-4.9)
--- NOTE | 2017-10-11 07:07 | DIAGNOSTIC IMAGING REPORT ---
CHEST ONE VIEW PORTABLE CLINICAL HISTORY: pulm edema COMPARISON STUDY: 10/10/2017 FINDINGS: The cardiac images so contours remain stable. There is a feeding tube in the stomach. There are persistent bilateral pulmonary airspace opacities. Medially foreign bodies project over the right chest wall. IMPRESSION: Mild cardiomegaly and persistent extensive bilateral pulmonary airspace opacities. Electronically signed by: Paco Chatman M.D. 10/11/2017 7:06 AM Dictated Date/Time: 10/11/2017 7:03 AM
[2017-10-11 07:08] LABS: COMPLETE YES
[2017-10-11] MEDS: LORAZEPAM 2 MG/ML 1 ML VIAL IV PRN ×2 (08:40→12:40)
[2017-10-11] MEDS: VALPROATE SOD IV 500 MG in DEXTROSE 5% 50ML 50 ML IV SCH (09:15)
[2017-10-11] MEDS: LEVOTHYROXINE SODIUM IV SCH (09:16)
[2017-10-11] MEDS: FAMOTIDINE IV INJ 20 MG in SYRINGE 3 ML IV SCH (09:56)
[2017-10-11] MEDS: THIAMINE HCL 100 MG/ML 2 ML VIAL IM SCH (09:57)
[2017-10-11] MEDS: CYANOCOBALAMIN 1000 MCG/ML VIAL IM SCH (09:59)
[2017-10-11] MEDS ORDERED: VANCOMYCIN TROUGH ONE (11:30)
[2017-10-11] MEDS ORDERED: CEFEPIME IV 1,000 MG in SYRINGE 0 ML IV SCH (12:00)
[2017-10-11] MEDS: PEPTAMEN 1.5 CAL 1000ML BAG NG SCH (12:24)
--- NOTE | 2017-10-11 13:18 | Pharmacy Progress Note ---
Pharmacy Antibiotic Prog Note Date of Service Oct 11, 2017. Subjective The patient is currently receiving vancomycin 1250 mg IV every 24 hours. The patient is currently on day # 9 of 10 of vancomycin IV therapy. Objective Height (Feet): 5 Height (Inches): 6.00 Weight (Kilograms): 77.500 Lab Results (24hrs): Test 10/11/17 05:36 10/11/17 05:43 10/11/17 11:46 10/11/17 11:57 White Blood Count 13.29 K/uL (4.8-10.8) Red Blood Count 3.40 M/uL (4.7-6.1) Hemoglobin 12.0 g/dL (14.0-18.0) Hematocrit 37.7 % (42-52) Mean Corpuscular Volume 110.9 fL (80-100) Mean Corpuscular Hemoglobin 35.3 pg (25-34) Mean Corpuscular Hemoglobin Concent 31.8 g/dl (32-36) Platelet Count 257 K/uL (130-400) Mean Platelet Volume 10.7 fL (7.4-10.4) Neutrophils (%) (Auto) 83.0 % Lymphocytes (%) (Auto) 7.9 % Monocytes (%) (Auto) 7.4 % Eosinophils (%) (Auto) 0.1 % Basophils (%) (Auto) 0.1 % Neutrophils # (Auto) 11.04 K/uL (1.4-6.5) Lymphocytes # (Auto) 1.05 K/uL (1.2-3.4) Monocytes # (Auto) 0.98 K/uL (0.11-0.59) Eosinophils # (Auto) 0.01 K/uL (0-0.5) Basophils # (Auto) 0.01 K/uL (0-0.2) RDW Standard Deviation 55.6 fL (36.4-46.3) RDW Coefficient of Variation 13.9 % (11.5-14.5) Immature Granulocyte % (Auto) 1.5 % Immature Granulocyte # (Auto) 0.20 K/uL (0.00-0.02) Nucleated RBC Absolute Count (auto) 0.06 K/uL (0-0) Nucleated Red Blood Cells % 0.4 % Macrocytosis PRESENT Sodium Level 149 mmol/L (136-145) Potassium Level 3.6 mmol/L (3.5-5.1) Chloride Level 110 mmol/L (98-107) Carbon Dioxide Level 35 mmol/L (21-32) Anion Gap 4.0 mmol/L (3-11) Blood Urea Nitrogen 41 mg/dl (7-18) Creatinine 1.31 mg/dl (0.60-1.40) Est Creatinine Clear Calc Drug Dose 39.7 ml/min Estimated GFR () 56.7 Estimated GFR (Non- 49.0 BUN/Creatinine Ratio 31.6 (10-20) Random Glucose 198 mg/dl (70-99) Calcium Level 8.1 mg/dl (8.5-10.1) Phosphorus Level 2.3 mg/dl (2.5-4.9) Magnesium Level 2.7 mg/dl (1.8-2.4) Bedside Glucose 194 mg/dl (70-99) 200 mg/dl (70-99) Vancomycin Level Trough 17.6 mcg/ml (SEE COMMENT) Assessment & Plan Assessment * 86 yo M with AMS 2nd stroke vs. seizure vs. PNA vs. meningitis. * On cefepime, vancomycin since 10/03. Acyclovir added 10/05. Plan to continue all for 10 day course. Cefepime, vancomycin scheduled to stop after day 10 (on 10/13) * Patient has persistently elevated WBC but is afebrile since 10/09 * Renal function stable and at/near baseline Vancomycin * Goal trough 15-20 mcg/mL * Trough of 17.6 mcg/mL is therapeutic Plan * Continue vancomycin 1250 mg IV q24h * No further levels needed unless renal function changes or therapy is continued beyond 10 days (scheduled to stop 10/13) Pharmacy will continue to follow and will adjust dose/frequency as necessary. Thank you
[2017-10-11] MEDS ORDERED: MoRPHine SULFATE 2 MG/ML CARP IV SCH (14:15)
[2017-10-11] MEDS: MORPHINE SULF/NSS 250MG/250ML IV PRN ×3 (15:06→16:36)
[2017-10-11] MEDS ORDERED: NURSING VERBAL MED ORDER ONE (15:30)
[2017-10-11] MEDS ORDERED: SCOPOLAMINE 1.5 MG TDSY TD ONE (15:45)
--- NOTE | 2017-10-11 16:11 | Palliative Care Consultation ---
Consultation Date of Consultation: Oct 11, 2017. Requesting Physician: Dr. Fried Attending Physician: Dr. Triplett, Dr. Fried Reason for Consultation: Comfort measures History of Present Illness This 86 year old male patient presented to the hospital 8 days ago with c/o altered mental status. Patient was recently in our emergency room department s/ p fall with a subdural bleed. He was sent straight to [facility] from our emergency room department. He was treated there and subsequently discharged home in "decent" shape. However, about 24 hours later, patient began to rapidly deteriorate with altered mental status, decreased level of consciousness and reports of shaking/tremors by the family. Upon admission, neurology consulted and EEG obtained. EEG showed some encephalopathy and nonspecific, possible seizure activity. No obvious metabolic reason for the encephalopathy/altered mental status. Patient was started on tube feedings via coresafe, morphine was held for a couple days to allow patient to wake up. Unfortunately, patient really has not improved and continues to decline. Per discussion with the primary medical team and patient's family, the decision was made to transition to comfort measures only. Palliative care is consulted to be extra support to family and ensure patient's comfort. I met with the patient and his daughter, Pamela, in room 217. Patient is occasionally moaning, but not opening eyes or responsive to voice or command. He did moan during repositioning and moved all extremities as he was restless in the bed. He is on oxymask with shallow and tachypneic respirations; has moist secretions in upper airway, but is in no apparent distress. He is unable to provide any ROS or conversation at all. His daughter, Pamela is at bedside and his is in the waiting room. Pamela confirmed that the goal is for comfort measures only. She states that the patient has had a poor quality of life for some time now and he has been saying for a long time that he was ready to . Feeding tube has already been removed, morphine gtt starting now at 1mg/ hr. Pamela states that the patient's is very emotional at this time wand needed to step out of the room. Patient's [id number] was apparently calling in and asking Pamela why we were "killing" the patient. Pamela and I discussed some ways that she can talk to the [id number] to try and help her to cope. Pamela was appreciative and had no further questions/concerns, just stated that they do not want the patient to suffer any further. Past Medical/Surgical History Medical History: Acute renal failure Back pain Bradycardia CAD (coronary artery disease) Cardiac ischemia Chronic renal insufficiency COPD (chronic obstructive pulmonary disease) Dehydration Depression HYPERTENSION NOS HYPOTHYROIDISM NOS Lumbar radiculopathy Pulmonary fibrosis Hypercholesterolemia Renal cyst, right Weakness Social History Smoking Status: Never Smoker History of Alcohol Use: No Drug Use: none Marital Status: Housing Status: lives with family Occupation Status: retired Review of Systems unable to obtain ROS Allergies Coded Allergies: KRISTEN Inhibitors (Unverified Allergy, Unknown, HYPERKALEMIA, 10/03/17) Medications Current Inpatient Medications Medications (Trade) Dose Ordered Sig/Chel Route Start Time Stop Time Status Last Admin Dose Admin Parenteral Electrolyte Solution 1,000 ml @ 80 mls/hr [id number] IV 10/05/17 17:30 11/04/17 17:29 Future Hold 10/07/17 15:18 80 MLS/HR Haloperidol Lactate (Haldol Inj) 5 mg ONE PRN IM 10/11/17 02:00 11/10/17 01:59 10/11/17 02:21 5 MG Morphine Sulfate/ Dextrose 250 ml @ 0 mls/hr Q0M PRN IV 10/11/17 14:45 10/25/17 14:44 10/11/17 15:06 1 MLS/HR Miscellaneous Information (Nursing Verbal Med Order) 1 ea ONE ONCE N/A 10/11/17 15:30 10/11/17 15:31 UNV Physical Exam Date Time Temp Pulse Resp B/P (MAP) Pulse Ox O2 Delivery O2 Flow Rate FiO2 10/11/17 12:27 100 163/77 10/11/17 12:00 Oxymask 8.0 10/11/17 07:47 36.3 10/11/17 07:30 Oxymask 8.0 10/11/17 07:07 100 20 90 Mask 8.0 10/11/17 07:02 81 24 163/77 (105) 92 Oxymask 8.0 10/11/17 05:45 91 183/90 10/11/17 04:00 Oxymask 8.0 10/11/17 02:39 37.1 96 27 183/90 (121) 95 Mask 8.0 10/11/17 01:30 78 24 92 Mask 8.0 10/11/17 00:37 99 178/70 10/10/17 23:59 Oxymask 8.0 10/10/17 22:55 36.7 101 32 178/70 (106) 94 Oxymask 8.0 10/10/17 20:00 Oxymask 8.0 10/10/17 18:57 36.9 99 38 172/90 (117) 94 Oxymask 8.0 10/10/17 18:47 84 28 94 Mask 8.0 10/10/17 18:20 140 10/10/17 16:59 190/99 (129) 10/10/17 16:03 110 10/10/17 16:00 Mask 8.0 General Appearance: + pertinent finding (chronically ill-appearing. restless in bed) Neck: no JVD Respiratory: no respiratory distress, no accessory muscle use, + rhonchi, + pertinent finding (very moist throughout. secretions noted in upper airway) Cardiovascular: regular rate, rhythm, no edema, + normal peripheral pulses Abdomen: normal bowel sounds, non tender, soft Neurologic/Psychiatric: + pertinent finding (restless in bed, altered mental status. unable to communicate) Laboratory Results Last 24 Hours Test 10/10/17 18:08 10/10/17 23:40 10/11/17 05:36 10/11/17 05:43 Bedside Glucose 191 mg/dl 218 mg/dl 194 mg/dl White Blood Count 13.29 K/uL Red Blood Count 3.40 M/uL Hemoglobin 12.0 g/dL Hematocrit 37.7 % Mean Corpuscular Volume 110.9 fL Mean Corpuscular Hemoglobin 35.3 pg Mean Corpuscular Hemoglobin Concent 31.8 g/dl Platelet Count 257 K/uL Mean Platelet Volume 10.7 fL Neutrophils (%) (Auto) 83.0 % Lymphocytes (%) (Auto) 7.9 % Monocytes (%) (Auto) 7.4 % Eosinophils (%) (Auto) 0.1 % Basophils (%) (Auto) 0.1 % Neutrophils # (Auto) 11.04 K/uL Lymphocytes # (Auto) 1.05 K/uL Monocytes # (Auto) 0.98 K/uL Eosinophils # (Auto) 0.01 K/uL Basophils # (Auto) 0.01 K/uL RDW Standard Deviation 55.6 fL RDW Coefficient of Variation 13.9 % Immature Granulocyte % (Auto) 1.5 % Immature Granulocyte # (Auto) 0.20 K/uL Nucleated RBC Absolute Count (auto) 0.06 K/uL Nucleated Red Blood Cells % 0.4 % Macrocytosis PRESENT Sodium Level 149 mmol/L Potassium Level 3.6 mmol/L Chloride Level 110 mmol/L Carbon Dioxide Level 35 mmol/L Anion Gap 4.0 mmol/L Blood Urea Nitrogen 41 mg/dl Creatinine 1.31 mg/dl Est Creatinine Clear Calc Drug Dose 39.7 ml/min Estimated GFR () 56.7 Estimated GFR (Non- 49.0 BUN/Creatinine Ratio 31.6 Random Glucose 198 mg/dl Calcium Level 8.1 mg/dl Phosphorus Level 2.3 mg/dl Magnesium Level 2.7 mg/dl Test 10/11/17 11:46 10/11/17 11:57 Vancomycin Level Trough 17.6 mcg/ml Valproic Acid (Depakene) Level 59 mcg/ml Bedside Glucose 200 mg/dl Assessment & Plan Palliative Performance Scale: 10 % Problem list: Altered mental status- encephalopathy vs. seizures vs. end of life Rapid deterioration, nonambulatory NPO- tube feedings now discontinued COPD/pulmonary fibrosis- tachypneic and moist respirations. requiring Oxymask Questionable seizure activity S/p subdural hemorrhage- essentially resolved per CT scan report on admission Goals of care (Z51.5) Comfort measures only Palliative care recs: discussed with patient's daughter, Pamela, and Dr. Fried. -Patient is already level 5/DNR, and comfort measures only. -Would continue morphine infusion: start at 1mg/hr, titrate by 1mg/hr Q15min PRN pain or SOB. Would also add bolus dose of 1mg IV Q1h PRN pain or SOB. -Add scopolamine patch 1.5mg TD Q72h. -Patient's not able to stay for conversation as she was feeling overwhelmed. Depending on patient's status tomorrow, may be GIP candidate. I certainly do not foresee him being able to be transferred out of the hospital. -Continue oxygen via Oxymask or nasal cannula-- whatever patient requires for comfort. -Patient to be transferred to [facility]. Thank you for this consult. I will follow as needed.
[2017-10-11] MEDS ORDERED: LORAZEPAM 2 MG/ML 1 ML VIAL IV PRN (17:15)
[2017-10-11] MEDS: LORAZEPAM INJ 1 MG in SYRINGE 0.5 ML IV PRN (17:26)
--- NOTE | 2017-10-11 17:35 | Cardiology Follow-Up ---
Subjective Date of Service: Oct 11, 2017. Pt evaluation today including: conversation w/ patient, conversation w/ family , physical exam, lab review, review of studies, review of inpatient medication list History of Present Illness This is an 86-year-old gentleman who has a history of coronary artery disease, prior ischemic cardiomyopathy with resolution, mild valvular disease as well as a number of other medical problems. He presented on January 03, 2015 with diminished exercise tolerance and was noted to have sinus node dysfunction. He therefore underwent pacemaker implantation on March 05, 2015. At surgery he had an unusual finding of no detectable atrial electrical activity despite being in sinus rhythm, and no atrial pacing at full output in any of multiple locations tested. 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 He paces relatively infrequently. He did have atrial fibrillation identified in 2014 following pacemaker implantation, since there is no atrial lead we cannot determine the frequency or duration of it but it is evidently paroxysmal. At that time his heart rate was well-controlled and he was started on anticoagulation. He has had a number of falls, including one in June 2016 where he hit his head, apparently had a small intracerebral bleed and his Pradaxa was held and he was transferred to [facility]. He had a full evaluation there with no clear etiology. He was back on Pradaxa. He fell at home on 09/29/2017, refused hospitalization however several days later he was seen in the emergency room which demonstrated an acute subdural hematoma and he was transferred to [facility]. He was discharged from there on 10/01/2017 to return home with instructions not to start his Pradaxa until 10/14/2017. His mental status continued to decline and he was brought to the emergency room on 10/04/2017. Here he was observed to have an elevated troponin, to be minimally responsive and to be in congestive heart failure and atrial fibrillation. To control his heart rate I converted his digoxin and metoprolol to intravenous form and intravenous diltiazem titrated off. Today he continues to be minimally responsive and lying in bed. He appears comfortable at the moment. Social History Smoking Status: Never Smoker History of Alcohol Use: No Review of Systems Respiratory: + shortness of breath Cardiac: + chest pain He cannot provide a meaningful review of systems Medications All of his AV enoch blocking medications have been discontinued today. Objective Vital Signs Past 12 Hours Date Time Temp Pulse Resp B/P (MAP) Pulse Ox O2 Delivery O2 Flow Rate FiO2 10/11/17 12:27 100 163/77 10/11/17 12:00 Oxymask 8.0 10/11/17 07:47 36.3 10/11/17 07:30 Oxymask 8.0 10/11/17 07:07 100 20 90 Mask 8.0 10/11/17 07:02 81 24 163/77 (105) 92 Oxymask 8.0 10/11/17 05:45 91 183/90 Last Recorded Weight-Kilograms: 77.500 Intake & Output 8-Hour Column 10/11/17 10/12/17 10/12/17 16:00 00:00 08:00 Intake Total 452 ml Output Total 350 ml Balance 102 ml 24-Hour Column 10/12/17 08:00 Intake Total 452 ml Output Total 350 ml Balance 102 ml Physical Exam Constitutional: Level of Distress: acutely ill Lungs: Auscultation: breath sounds normal Cardiovascular: Heart Auscultation: irregular rate rhythm Data Laboratory Results: Last 24 Hours Test 10/10/17 18:08 10/10/17 23:40 10/11/17 05:36 10/11/17 05:43 Bedside Glucose 191 mg/dl 218 mg/dl 194 mg/dl White Blood Count 13.29 K/uL Red Blood Count 3.40 M/uL Hemoglobin 12.0 g/dL Hematocrit 37.7 % Mean Corpuscular Volume 110.9 fL Mean Corpuscular Hemoglobin 35.3 pg Mean Corpuscular Hemoglobin Concent 31.8 g/dl Platelet Count 257 K/uL Mean Platelet Volume 10.7 fL Neutrophils (%) (Auto) 83.0 % Lymphocytes (%) (Auto) 7.9 % Monocytes (%) (Auto) 7.4 % Eosinophils (%) (Auto) 0.1 % Basophils (%) (Auto) 0.1 % Neutrophils # (Auto) 11.04 K/uL Lymphocytes # (Auto) 1.05 K/uL Monocytes # (Auto) 0.98 K/uL Eosinophils # (Auto) 0.01 K/uL Basophils # (Auto) 0.01 K/uL RDW Standard Deviation 55.6 fL RDW Coefficient of Variation 13.9 % Immature Granulocyte % (Auto) 1.5 % Immature Granulocyte # (Auto) 0.20 K/uL Nucleated RBC Absolute Count (auto) 0.06 K/uL Nucleated Red Blood Cells % 0.4 % Macrocytosis PRESENT Sodium Level 149 mmol/L Potassium Level 3.6 mmol/L Chloride Level 110 mmol/L Carbon Dioxide Level 35 mmol/L Anion Gap 4.0 mmol/L Blood Urea Nitrogen 41 mg/dl Creatinine 1.31 mg/dl Est Creatinine Clear Calc Drug Dose 39.7 ml/min Estimated GFR () 56.7 Estimated GFR (Non- 49.0 BUN/Creatinine Ratio 31.6 Random Glucose 198 mg/dl Calcium Level 8.1 mg/dl Phosphorus Level 2.3 mg/dl Magnesium Level 2.7 mg/dl Test 10/11/17 11:46 10/11/17 11:57 Vancomycin Level Trough 17.6 mcg/ml Valproic Acid (Depakene) Level 59 mcg/ml Bedside Glucose 200 mg/dl Telemetry reviewed: Atrial fibrillation with an increased heart rate at times, generally reasonably well-controlled Assessment and Plan #1. Atrial fibrillation: He has been in atrial fibrillation, his heart rate has come under reasonable control with a combination of digoxin and intravenous metoprolol. He only has elevated heart rates on this regimen when he is agitated. Now these medications have been discontinued, I don't know that he is going to do well without any AV enoch blocking medications. If we have to restart them it would be helpful to know what his digoxin level is and I ordered it for the morning. #2. Pacemaker: His pacemaker is functioning well, with appropriate infrequent pacing. Thank you for allowing me to participate in his care.
--- NOTE | 2017-10-11 19:07 | Family Medicine Progress Note ---
Progress Note Date of Service Oct 11, 2017. Subjective Pt evaluation today including: conversation w/ family, physical exam, chart review, lab review The patient was seen and examined at bedside. Patient was restless overnight and required morphine, Haldol and Ativan. Oxy mask continues to be on patient. He is non responding to questions. Similar exam to last week. Family is present in the room. Plan of care was described to the patient and all questions were answered. ROS: could not assess due to underlying medical condition Objective Physical Exam Notes: General Appearance: WD/WN, non responsive, patient is spontaneously moving his upper and lower extremities, patient does open the eyes and was eye tracking in the AM. Neck: supple Respiratory/Chest: Lungs sounds are course anteriorly,. Cardiovascular: no JVD, no murmur, not tachycardic, + irregularly irregular Abdomen: normal bowel sounds, non tender, soft, no hepatosplenomegaly appreciated. Extremities: + pertinent finding (Unable to wiggle toes or squeeze fingers to command.) Hands appear more edematous. Neurologic/Psychiatric: alert, + pertinent finding (Does not respond to commands at all including movies his upper or lower extremities, blinking on command, opening or closing mouth or turning his head on command. Did not appreciate any myoclonic jerking). Skin: no rash Assessment and Plan 86M with a PMHx of Pulmonary Fibrosis that was recently discharged from [facility] [place] a [place] hemorrhage on 10/01/2017 - patient was at his baseline on his discharge - family denies any acute event (fall or trauma) after discharge. Pt was brought in and was non responsive in the ER. Patient continues to be encephalopathic. At present we believe he has neurological sequelae from his previous intracranial bleeds and this is a prolonged post ictal state. LP is contraindicated due to recent subdural hematoma. He was started on Depakote and we will continue this at present until post ictal / seizure activity resolves. After 8 days of treatment with antiseizure medication and Abx and anti virals for an infectious encephalopathy without clinical improvement it was determined to focus on comfort measures. , biological daughter and friends of family were present when this decision was made. We will administer a Morphine Drip with PRN Ativan 1mg Q1 for agitation. This was discussed with the and daughter at length and they agree with the plan. Resident Involvement: Resident Care Provided Care Provided: Adult Hospital Medicine Reviewed: Pt Seen/Exam by Me History agitated overnight. continues to be delirious family at bedside General Appearance: no apparent distress Respiratory: no respiratory distress Cardiovascular: regular rate, rhythm Neurologic/Psychiatric: other (delirous) Assessment/Plan Resident Physician Supervision Note: I independently interviewed and examined the patient and verified the gu history and physical, reviewed labs and image studies, discussed the case with the resident Dr. Fried and agree with the findings and care plan. Extensively discussed with daughter and - will pursue comfort care.
[2017-10-11] MEDS: CHECK SCOPOLAMINE PATCH PLACEMENT SCH (23:48)
[2017-10-12 08:00] VITALS: O2SAT 96
[2017-10-12] MEDS: CHECK SCOPOLAMINE PATCH PLACEMENT SCH ×3 (08:00→23:14)
--- NOTE | 2017-10-12 10:36 | Palliative Care Progress Note ---
Palliative Care Progress Note Date of Service Oct 12, 2017. Subjective Pt evaluation today including: conversation w/ family (daughter, Pamela), physical exam, chart review, conversation w/ jd edwards consultant Pain: no signs or symptoms of pain PO Intake: none Voiding: aguilera catheter in place -Met for an extensive period of time with patient and his daughter, Mary. -Patient is now completely obtunded. Comfortable with normal RR on 3mg/hr IV morphine gtt. Review of Systems unable to obtain ROS Objective Vital Signs Date Time Temp Pulse Resp B/P (MAP) Pulse Ox O2 Delivery O2 Flow Rate FiO2 10/12/17 08:00 96 Oxymask 8.0 10/12/17 00:05 Oxymask 8.0 10/11/17 20:05 Oxymask 8.0 10/11/17 16:30 96 Oxymask 8.0 10/11/17 12:27 100 163/77 10/11/17 12:00 Oxymask 8.0 Physical Exam General Appearance: no apparent distress ENT: + pertinent finding (no moist secretions heard today) Neck: no JVD Respiratory/Chest: no respiratory distress, no accessory muscle use, + pertinent finding (remains on Oxymask; resp rate 12-14/min) Cardiovascular: regular rate, rhythm, + pertinent finding (+1 BLE edema) Extremities: + pertinent finding (not moving extremities) Neurologic/Psychiatric: + pertinent finding (obtunded) Skin: + pertinent finding (no mottling) Laboratory Results Last 24 Hours Test 10/11/17 11:46 10/11/17 11:57 Vancomycin Level Trough 17.6 mcg/ml Valproic Acid (Depakene) Level 59 mcg/ml Bedside Glucose 200 mg/dl Assessment and Plan Problem list: Altered mental status- encephalopathy vs. seizures vs. end of life Rapid deterioration, nonambulatory NPO- tube feedings now discontinued COPD/pulmonary fibrosis- tachypneic and moist respirations. requiring Oxymask Questionable seizure activity S/p subdural hemorrhage- essentially resolved per CT scan report on admission Goals of care (Z51.5) Comfort measures only Palliative care recs: -Patient is [employer]. -Morphine gtt remains at 3mg/hr. Able to be titrated by nurses and was required to be increased since yesterday. Also has 1mg IV bolus dose Q1h PRN pain or SOB which also was needed to control pain and SOB. -Has PRN haloperidol and lorazepam. Dose of lorazepam was used last night for agitation. -Long discussion with patient's daughter. Support and end of life education given. Pamela very appreciative. -Patient may be GIP candidate. Will talk with case manager specialist. Thank you again for this consult. I will follow as needed. Palliative Performance Scale: 10 % Continued [facility] stay due to: multiple IV medications needed Discharge planning: uncertain
--- NOTE | 2017-10-12 10:41 | Family Medicine Progress Note ---
Progress Note Date of Service Oct 12, 2017. Subjective Pt evaluation today including: physical exam, chart review, lab review The patient was seen and examined at bedside. No acute overnight events. No family was in the room when I went by. Condition appears unchanged. Patient does not respond to saying his name. There is no myoclonic jerking. Oxygen facemask is on patient and IV morphine drip is in place. PRN Ativan is also on board. ROS: Non responsive, unable to assess. Objective Physical Exam Notes: General Appearance: WD/WN, non responsive, not opening eyes, not responding to name, no myoclonic movements. Neck: supple Respiratory/Chest: Lungs sounds are course anteriorly,. Cardiovascular: no JVD, no murmur, not tachycardic, + irregularly irregular Abdomen: normal bowel sounds, non tender, soft, no hepatosplenomegaly appreciated. Extremities: + pertinent finding Does not respond to commands or sternal rub. Neurologic/Psychiatric: not alert. eyes are closed. Pt does not appear to be in any pain. Skin: no rash Assessment and Plan 86M with a PMHx of Pulmonary Fibrosis that was recently discharged from [facility] for a intracranial hemorrhage on 10/01/2017 - patient was at his baseline on his discharge - family denies any acute event (fall or trauma) after discharge. Pt was brought in and was non responsive in the ER. Patient continues to be encephalopathic. At present we believe he has neurological sequelae from his previous intracranial bleeds and this is a prolonged post ictal state. LP is contraindicated due to recent subdural hematoma. He was started on Depakote. After 8 days of treatment with antiseizure medication and Abx and anti virals for an infectious encephalopathy without clinical improvement it was determined to focus on comfort measures. , biological daughter and friends of family were present when this decision was made. Continue with Morphine Drip with PRN Ativan 1mg Q1 for agitation. Palliative care on board. Resident Involvement: Resident Care Provided Care Provided: Adult Hospital Medicine Reviewed: Pt Seen/Exam by Me History comfortable in bed. daughter at bedside Constitutional: denies: fever General Appearance: no apparent distress Respiratory: no respiratory distress Cardiovascular: regular rate, rhythm Neurologic/Psychiatric: other (somnolent) Assessment/Plan Resident Physician Supervision Note: I independently interviewed and examined the patient and verified the gu history and physical, reviewed labs and image studies, discussed the case with the resident Dr. Fried and agree with the findings and care plan.
[2017-10-13] MEDS: CHECK SCOPOLAMINE PATCH PLACEMENT SCH ×3 (08:30→23:06)
--- NOTE | 2017-10-13 10:28 | Family Medicine Progress Note ---
Progress Note Date of Service Oct 13, 2017. Subjective Pt evaluation today including: physical exam, chart review, lab review The patient was seen and examined at bedside. Resting comfortably with morphine drip in place. Non responsive. No family in the room. Patient is on comfort measures. Oxygen mask on the patient. He does not respond to sternal rub awakening. ROS: Unable to asses due to patient's baseline medical condition. Objective Physical Exam General Appearance: no apparent distress, + pertinent finding (has a terminal unreversible medical condition) Eyes: + pertinent finding (closed) Respiratory/Chest: + pertinent finding (Raspy breath sounds, no respiratory distress, anterior lung valencia are clear, no crackles, no wheezing, no rales. ) Cardiovascular: regular rate, rhythm, no edema, no gallop, no JVD, no murmur Abdomen: non tender, soft Extremities: + pertinent finding (not spontaneously moving upper or lower extremities, does not respond to sternal rub, does not respond to name, not opening eyes. ) Neurologic/Psychiatric: + pertinent finding (not speaking, not arounsable) Skin: normal color, warm/dry Assessment and Plan 86M with a PMHx of Pulmonary Fibrosis that was recently discharged from [facility] for an intracranial hemorrhage on 10/01/2017 - patient was at his baseline on his discharge - family denies any acute event (fall or trauma) after discharge. Pt was brought in and was non responsive in the ER. Patient continues to be encephalopathic. At present we believe he has neurological sequelae from his previous intracranial bleeds. LP is contraindicated due to recent subdural hematoma. He was started on Depakote without response. After 8 days of treatment with antiseizure medication and Abx and anti virals for an infectious encephalopathy without clinical improvement it was determined to focus on comfort measures on 10/11/2017. , biological daughter and friends of family were present when this decision was made. Continue with Morphine Drip with PRN Ativan 1mg Q1 for agitation. Resident Involvement: Resident Care Provided Care Provided: Adult Hospital Medicine Reviewed: Pt Seen/Exam by Me History comfortable in bed General Appearance: no apparent distress (comfortably sedated. ) Respiratory: lungs clear, no respiratory distress Cardiovascular: regular rate, rhythm Assessment/Plan Resident Physician Supervision Note: I independently interviewed and examined the patient and verified the gu history and physical, reviewed labs and image studies, discussed the case with the resident Dr. Fried and agree with the findings and care plan.
--- NOTE | 2017-10-13 11:02 | Palliative Care Progress Note ---
Palliative Care Progress Note Date of Service Oct 13, 2017. Subjective Pt evaluation today including: conversation w/ patient, conversation w/ family (daughter, Pamela, [id number] Sara), physical exam, review of inpatient medication list PO Intake: none Voiding: aguilera catheter in place Spoke with patient's family at bedside. Support given and questions answered. Patient is obtunded on morphine gtt, mottling is present. Review of Systems unable to obtain ROS Objective Vital Signs Date Time Temp Pulse Resp B/P (MAP) Pulse Ox O2 Delivery O2 Flow Rate FiO2 10/13/17 08:00 Mask 8.0 10/13/17 00:00 Oxymask 8.0 10/12/17 20:00 Oxymask 8.0 10/12/17 16:00 Oxymask 8.0 Physical Exam General Appearance: no apparent distress ENT: + pertinent finding (no secretions auscultated) Neck: no JVD Respiratory/Chest: no respiratory distress, no accessory muscle use, + decreased breath sounds Cardiovascular: regular rate, rhythm, no edema Abdomen: normal bowel sounds, soft Neurologic/Psychiatric: + pertinent finding (obtunded) Skin: + mottled (bilateral knees, right toes) Assessment and Plan Problem list: Altered mental status Rapid deterioration, nonambulatory NPO- tube feedings now discontinued COPD/pulmonary fibrosis Questionable seizure activity S/p subdural hemorrhage- essentially resolved per CT scan report on admission Goals of care (Z51.5) Comfort measures only Palliative care recs: -Patient is [employer]. -Patient's pain, SOB, and agitation are controlled only with continuous morphine infusion and with frequent nursing assessment for titrate of infusion. -Also has morphine 1mg IV bolus dose Q1h PRN pain or SOB which also was needed to control pain and SOB. -Has PRN haloperidol and lorazepam. -Patient may be GIP candidate, patient's daughter Pamela did not want to make that decision without her two sisters who are expected to arrive sometime this afternoon from out of town. Palliative Performance Scale: 10 % Continued [facility] stay due to: multiple IV medications needed Discharge planning: uncertain
[2017-10-14] MEDS: LORAZEPAM INJ 1 MG in SYRINGE 0.5 ML IV PRN ×3 (05:12→14:37)
[2017-10-14] MEDS ORDERED: NURSING VERBAL MED ORDER ONE ×2 (06:30→14:00)
[2017-10-14] MEDS ORDERED: ACETAMINOPHEN IV 650 MG / 65ML IV ONE (07:00)
[2017-10-14] MEDS: CHECK SCOPOLAMINE PATCH PLACEMENT SCH (07:40)
--- NOTE | 2017-10-14 11:41 | Family Medicine Progress Note ---
Progress Note Date of Service Oct 14, 2017. Subjective Pt evaluation today including: conversation w/ family, physical exam, chart review, lab review The patient was seen and examined at bedside. Resting comfortably with morphine drip in place and IV Tylenol. Non responsive to sternal rub. Daughter in the room. Patient is on comfort measures. Oxygen mask on the patient. ROS: Unable to asses due to patient's baseline medical condition. Objective Physical Exam Notes: General Appearance: no apparent distress, + pertinent finding (has a terminal non reversible medical condition) Eyes: + pertinent finding (closed) Respiratory/Chest: + pertinent finding (Raspy breath sounds, agonal breathing, anterior lung valencia are clear, no crackles, no wheezing, no rales. ) Cardiovascular: regular rate, rhythm, no edema, no gallop, no JVD, no murmur Abdomen: non tender, soft Extremities: + pertinent finding (not spontaneously moving upper or lower extremities, does not respond to sternal rub, does not respond to name, not opening eyes. ) Neurologic/Psychiatric: + pertinent finding (not speaking, not arousable) Skin: normal color, warm/dry Assessment and Plan 86M with a PMHx of Pulmonary Fibrosis that was recently discharged from [facility] for an intracranial hemorrhage on 10/01/2017 - patient was at his baseline on his discharge - family denies any acute event (fall or trauma) after discharge. Pt was brought in and was non responsive in the ER. Patient continues to be encephalopathic. At present we believe he has neurological sequelae from his previous intracranial bleeds. LP is contraindicated due to recent subdural hematoma. He was started on Depakote without response. After 8 days of treatment with antiseizure medication and Abx and anti virals for an infectious encephalopathy without clinical improvement it was determined to focus on comfort measures on 10/11/2017. , biological daughter and friends of family were present when this decision was made. Continue with Morphine Drip with PRN Ativan 1mg Q1 for agitation. Will add on IV Tylenol [id number] PRN for tactile fevers at family's request. Reviewed: Pt Seen/Exam by Me History tachypneic unarousable family at bedside Constitutional: acknowledges: other (subjective fever per family) General Appearance: other (tachypneic, unarousable) Cardiovascular: regular rate, rhythm Assessment/Plan Resident Physician Supervision Note: I independently interviewed and examined the patient and verified the gu history and physical, reviewed labs and image studies, discussed the case with the resident Dr. Fried and agree with the findings and care plan.
[2017-10-14] MEDS ORDERED: ACETAMINOPHEN IV 650 MG in EMPTY BAG 0 ML IV PRN (11:45)
[2017-10-14] MEDS: MoRPHine SULFATE 2 MG/ML CARP IV PRN (13:56)
[2017-10-14] MEDS ORDERED: SCOPOLAMINE 1.5 MG TDSY TD SCH (16:00)
--- NOTE | 2017-10-14 18:53 | Death Pronouncement Note ---
Pronouncement Note Date & Time of Oct 14, 2017. 1820 Pronouncement At time of pronouncement the patients pupils were fixed and dilated, there was no spontaneous respiratory effort, no palpable pulse, no audible heart tones, and no response to pain or voice. Resident Involvement: Resident Care Provided Care Provided: Adult Hospital Medicine
--- NOTE | 2017-10-15 17:41 | Death Summary ---
Summary of Admission Date Oct 03, 2017 at 20:21 Date & Time of Oct 14, 2017. 1820 Cause of Sequela from intracranial bleeding. 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 The patient was at his baseline on discharge two days prior to arrival. Family, the primary historians, deny any acute event ( fall or trauma) in the preceding two days. In the ER patient was non responsive and not able to follow commands. EKG showed Afib with RVR. Chest X-ray did suggest evidence of congestive failure, bilateral airspace opacities and small pleural effusions. CT of the head did not show worsening of subdural hematoma but did show new trace intraventricular blood from previous CT Scan on 2016. Dilantin Level was therapeutic on admission. Troponins were elevated at 2.17. WBC were elevated, procalcitonin was negative and the ABG was relatively normal. Blood cultures were drawn and eventually were negative. The patient was initially admitted for Acute Hypoxic Respiratory Failure 2/2 to Atrial Fibrillation with RVR. We reduced the heart rate with IV Metoprolol and there was no improvement. Anticoagulation was held due to the patient's recent intracranial bleeds. We also started empiric treatment for Pneumonia on admission with IV Vancomycin and Cefepime as well as high dose steroids to prevent inflammatory changes from the recent intracranial bleeds. Cardiology was consulted and in their opinion the patient was not in heart failure and the patient did suffer an NSTEMI but due to underlying intracranial bleeds ASA and Heparin were contraindicated. Importantly per our cardiologists assessment the present cardiac function did not account for the patients underlying mental status changes. The patient showed no clinical improvement with heart rate control and in fact started myoclonic jerking at which point we consulted Neurology. Repeat Head CT showed no significant interval changes. MRI was contraindicated due to Pacemaker placement. IV Acyclovir was started for possible herpetic encephalitis and we switched from Dilantin to Depakote in an effort to resolve any seizure activity. EEG showed "Moderate encephalopathy of nonspecific etiology, but appears to be consistent with a metabolic encephalopathy." LP was contraindicated due to a recent intracranial hemorrhage. On 10/08/2017 after 6 days without eating it was decided to insert an NG tube for tube feedings. The decision was made with family because there was a hope that the underlying illness was still reversible. After 8 days of treatment with antiseizure medication, high dose steroids, antibiotics and anti virals without clinical improvement it was determined to focus on comfort measures on 10/11/2017. Throughout the hospital course the patient shows a slow clinical declined albeit with resolution of myoclonic jerking with increasing doses of Depakote. The patients condition is best explained by sequelae from his recent intracranial bleed as there was no infectious, cardiac, pulmonary, endocrinological, hematological, renal or gastrointestinal cause of his encephalopathy. , biological daughter and friends of family were present when the decision to pursue comfort measures was made. Comfort measures began with a morphine drip of 1mg/hr (titrated upwards to 5mg/hr) and IV Ativan PRN for agitation. The patient passed comfortably at 1820 on 10/14/2017. Copy To Camden Dennis D.O. Resident Involvement: Resident Care Provided Care Provided: Adult Hospital Medicine
== END 2017-10-14 20:55 | disposition expired | DRG 177 ==
LOC: EDBD 12:43 → C.EDC 12:45 → C.2T 20:21 → CANRESERV 20:31 → ENRESERV 20:31 → C.2T 10-06 18:44 → ENRESERV 10-11 14:49 → C.4E 10-11 16:26
PROVIDERS: ADMIT Hospitalist; ATTEND Family Medicine
DX: J69.0 Pneumonitis due to inhalation of food and vomit (principal); J96.01 Acute respiratory failure with hypoxia; B00.4 Herpesviral encephalitis; I21.A1 Myocardial infarction type 2; G93.40 Encephalopathy, unspecified; S06.5X9S Traumatic subdural hemorrhage with loss of consciousness of unspecified duration, sequela; I10 Essential (primary) hypertension; E03.9 Hypothyroidism, unspecified; F32.9 Major depressive disorder, single episode, unspecified; I25.10 Atherosclerotic heart disease of native coronary artery without angina pectoris; J44.9 Chronic obstructive pulmonary disease, unspecified; E78.5 Hyperlipidemia, unspecified; E87.6 Hypokalemia; I48.91 Unspecified atrial fibrillation; Z66 Do not resuscitate; G40.909 Epilepsy, unspecified, not intractable, without status epilepticus; J84.10 Pulmonary fibrosis, unspecified; Z95.0 Presence of cardiac pacemaker; I25.5 Ischemic cardiomyopathy; Z51.5 Encounter for palliative care; W19.XXXS Unspecified fall, sequela